=== PATIENT | female | born 1930 | race American Indian/Alaskan Native ===

== ENCOUNTER 2017-05-19 17:07 | Emergency (ER) | payer MEDICARE ==
[2017-05-19 17:22] VITALS: RESP 18; TEMP 98.4
--- NOTE | 2017-05-19 17:37 | ED PDOC ---
Arrival/HPI - General Chief Complaint: High Blood Pressure Time Seen by Provider: 05/19/17 17:18 - History of Present Illness Narrative History of Present Illness (Text): 86 y/o F p/w high blood pressure reading. Patient states that she was going to a routine follow up appointment at mental health clinic and was found to have high blood pressure and was instructed to come to the ED. She denies headache, vision change, nausea, vomiting, chest pain, dyspnea, back pain, abdominal pain , shortness of breath, numbness, weakness. Past Medical History - Cardiac Hx Cardiac Disorders: Yes Hx Hypertension: Yes - Pulmonary Hx Respiratory Disorders: No - Neurological Hx Neurological Disorder: No - HEENT Hx HEENT Disorder: No - Renal Hx Renal Disorder: No - Endocrine/Metabolic Hx Endocrine Disorders: Yes Hx Diabetes Mellitus Type 2: Yes - Hematological/Oncological Hx Blood Disorders: No - Integumentary Hx Dermatological Disorder: No - Musculoskeletal/Rheumatological Hx Musculoskeletal Disorders: No - Gastrointestinal Hx Gastrointestinal Disorders: No - Genitourinary/Gynecological Hx Genitourinary Disorders: No - Psychiatric Hx Psychophysiologic Disorder: Yes Hx Substance Use: No - Surgical History Hx Hysterectomy: Yes Family/Social History Family/Social History: No Known Family HX Smoking Status: Never Smoked Hx Alcohol Use: No Hx Substance Use: No Allergies/Home Meds Allergies/Adverse Reactions: Allergies No Known Allergies Allergy (Verified 05/19/17 17:30) Home Medications: Home Meds Medication Instructions Recorded Confirmed Unobtainable 05/19/17 05/19/17 Review of Systems - Physician Review All systems were reviewed & negative as marked: Yes - Review of Systems Constitutional: absent: Fevers Respiratory: absent: SOB Cardiovascular: absent: Chest Pain Physical Exam Vital Signs Temp Pulse Resp BP Pulse Ox 05/19/17 17:21 98.4 F 68 18 165/81 H 96 - Systems Exam Head: Present: Normocephalic Pupils: Present: PERRL Extroacular Muscles: Present: EOMI Mouth: Present: Moist Mucous Membranes Pharnyx: No: ERYTHEMA, EXUDATE Neck: Present: Normal Range of Motion. No: MIDLINE TENDERNESS Respiratory/Chest: Present: Clear to Auscultation. No: Rales Cardiovascular: Present: Regular Rate and Rhythm, Normal S1, S2 Abdomen: No: Tenderness, Peritoneal Signs, Rebound, Guarding Back: No: CVA Tenderness, Midline Tenderness Upper Extremity: Present: NORMAL PULSES Lower Extremity: No: Tenderness Neurological: Present: GCS=15, CN II-XII Intact, Speech Normal, Motor Func Grossly Intact, Normal Sensory Function, Gait Normal Skin: Present: Normal Color. No: Rashes Psychiatric: Present: Alert Medical Decision Making ED Course and Treatment: Patient's blood pressure during examination 130/80 without any intervention. Patient with no symptoms. No indication for further ER evaluation. Discharged home, f/u primary care, instructed to return to ED for any chest pain, dyspnea, vomiting, headache, vision change, numbness, weakness, or any other problem. Disposition/Present on Arrival - Present on Arrival Any Indicators Present on Arrival: No History of DVT/PE: No History of Uncontrolled Diabetes: No Urinary Catheter: No History of Decub. Ulcer: No History Surgical Site Infection Following: None - Disposition Have Diagnosis and Disposition been Completed?: Yes Diagnosis: Asymptomatic hypertension Disposition: HOME/ ROUTINE Disposition Time: 17:36 Patient Plan: Discharge Condition: STABLE Discharge Instructions (ExitCare): Chronic Hypertension (ED) Forms: [employer] ([place])
[2017-05-19 18:45] VITALS: BP 144/74; O2SAT 97
[2017-05-19 18:47] VITALS: PULSE 67
== END 2017-05-19 18:44 | disposition home or self-care (01) ==
LOC: ED 17:07
DX: I10 Essential (primary) hypertension (principal)

== ENCOUNTER 2018-01-05 10:01 | Inpatient (IN) | payer MEDICARE, OTHER ==
--- NOTE | 2018-01-05 11:04 | ED PDOC ---
Arrival/HPI - General Chief Complaint: GI Problem Time Seen by Provider: 01/05/18 10:20 Historian: Patient - History of Present Illness Narrative History of Present Illness (Text): 01/05/18 11:00 A 87 year old female presents to the emergency department complaining of rectal bleeding since 03:00 this morning. Patient reports 3-4 episodes of bright red bloody diarrhea. Patient notes having normal bowel movements prior to todays episode. Patient denies any fever, chills, nausea, vomiting, abdominal pain, rectal pain, chest pain, shortness of breath or any other complaints. Time/Duration: Other (03:00 this morning) Symptom Course: Unchanged Context: Home Past Medical History - Provider Review Nursing Documentation Reviewed: Yes - Cardiac Hx Cardiac Disorders: Yes Hx Hypertension: Yes - Pulmonary Hx Respiratory Disorders: No - Neurological Hx Neurological Disorder: No - HEENT Hx HEENT Disorder: No - Renal Hx Renal Disorder: No - Endocrine/Metabolic Hx Endocrine Disorders: Yes Hx Diabetes Mellitus Type 2: Yes - Hematological/Oncological Hx Blood Disorders: No - Integumentary Hx Dermatological Disorder: No - Musculoskeletal/Rheumatological Hx Musculoskeletal Disorders: No - Gastrointestinal Hx Gastrointestinal Disorders: No - Genitourinary/Gynecological Hx Genitourinary Disorders: No - Psychiatric Hx Psychophysiologic Disorder: No Hx Substance Use: No - Surgical History Hx Hysterectomy: Yes Family/Social History - Physician Review Nursing Documentation Reviewed: Yes Family/Social History: No Known Family HX Smoking Status: Never Smoked Hx Alcohol Use: No Hx Substance Use: No Allergies/Home Meds Allergies/Adverse Reactions: Allergies No Known Allergies Allergy (Verified 01/05/18 10:11) Home Medications: Home Meds Medication Instructions Recorded Confirmed Atorvastatin [Lipitor] 40 mg PO DAILY 01/05/18 01/05/18 Bisoprolol/HCTZ [Ziac 10-6.25 mg] 1 tab PO DAILY 01/05/18 01/05/18 Ergocalciferol (Vitamin D2) 1 tab PO Q7D 01/05/18 01/05/18 [Vitamin D2] Lisinopril [Zestril] 20 mg PO BID 01/05/18 01/05/18 Magnesium Oxide [Magnesium] 1 tab PO DAILY 01/05/18 01/05/18 amLODIPine [Norvasc] 10 mg PO DAILY 05/04/18 05/04/18 Review of Systems - Review of Systems Constitutional: absent: Fatigue, Fevers, Night Sweats Eyes: absent: Eye Pain Respiratory: absent: SOB, Cough Cardiovascular: absent: Chest Pain, Edema, MASCORRO Gastrointestinal: Diarrhea (bloody). absent: Abdominal Pain, Constipation, Nausea, Vomiting, Anorexia, Other (rectal pain) Genitourinary Female: absent: Hematuria Musculoskeletal: absent: Back Pain Skin: absent: Rash Neurological: absent: Headache, Dizziness, Focal Weakness Endocrine: absent: Polyuria Hemo/Lymphatic: Easy Bleeding Psychiatric: absent: Depression Physical Exam - Physical Exam Narrative Physical Exam (Text): Head: Atraumatic. Normocephalic. Eyes: PERRL. EOMI. Conjunctivae are not pale. ENT: Mucous membranes are moist and intact. Oropharynx is clear and symmetric. Neck: Supple. Full ROM. No JVD. No lymphadenopathy. Cardiovascular: Regular rate. Regular rhythm. Mild systolic murmur noted. Distal pulses intact. Pulmonary/Chest: No evidence of respiratory distress. Clear to auscultation bilaterally. No wheezing, rales or rhonchi. Abdominal: Soft and non-distended. There is no tenderness. No rebound, guarding, or rigidity. No organomegaly. Good bowel sounds. Rectal Exam: Performed by me, chaperoned by scribe. No external hemorrhoids noted. Dark blood clots noted in stool. No internal masses palpable. Back: No CVA tenderness. Extremities: No edema. No cyanosis. No clubbing. Full range of motion in all extremities. No calf tenderness. Skin: Skin is warm and dry. No petechiae. No purpura. Neurological: Alert, awake, and oriented. No focal weakness. Motor and sensory exam intact. Psychiatric: Good eye contact. Normal interaction, affect, and behavior. Vital Signs Reviewed: Yes Vital Signs Temp Pulse Resp BP Pulse Ox 01/05/18 17:34 98.5 F 65 18 142/61 01/05/18 17:20 98.1 F 63 18 152/75 H 100 01/05/18 17:11 98.1 F 65 20 140/75 01/05/18 14:12 62 18 138/53 L 98 01/05/18 13:52 68 18 113/71 97 01/05/18 11:27 98.6 F 74 18 111/69 96 01/05/18 10:15 99.0 F 78 17 109/67 95 Temperature: Afebrile Blood Pressure: Normal Pulse: Regular Respiratory Rate: Normal Appearance: Positive for: Well-Appearing, Non-Toxic, Comfortable Pain Distress: None Mental Status: Positive for: Alert and Oriented X 3 Medical Decision Making ED Course and Treatment: 01/05/18 10:59 Impression: A 87 [place] old female with rectal bleeding. Patient notes 3-4 episodes of bloody diarrhea. Plan is to obtain CBC and monitor. Differential Diagnosis included but are not limited to: Diverticulosis vs. Colitis vs. Hemorrhoids vs. GI bleed Plan: -- Chest xray -- EKG -- Labs -- Reassess and disposition Progress Notes: Patient on exam denies any pain or shortness of breath. She has been monitored, she is not tachycardic or hypotensive, although there is active bleeding with no external hemorrhoid noted. Patient is noted to be anemic, this hemoglobin was reviewed with PMD Dr. Anderson and reviewed past records reveal acute change of reported baseline. GIVEN ACTIVE BLEEDING AND DROP IN HEMOGLOBIN, patient ordered pRBCS transfusion , consent discussed with patient and patient signed consent, understands indications. I discussed case with Dr. Cleveland, bleeding scan requested and result reviewed with Dr. Cleveland. CT abdomen/pelvis requested, pending at this time, endorsed to admitting team and consultants. Patient will be admitted to ICU based on ACTIVE BLEEDING and drop in hemoglobin. Not hypotensive or tachycardic with serial exams. Report Date : 01/05/2018 13:54:59 Procedure: Chest xray Dictator : Jim Leal MD IMPRESSION: No active disease. 01/05/18 18:26 Reassessment Condition: Re-examined - Critical Care Critical Care Minutes: 30 minutes - Lab Interpretations Lab Results: 01/05/18 11:13 01/05/18 11:13 Lab Results 01/05/18 13:30: Blood Type Confirm O POSITIVE 01/05/18 12:21: Blood Type O POSITIVE, Antibody Screen Negative, Crossmatch See Detail, BBK History Checked No verified bt 01/05/18 11:13: Lactate Dehydrogenase 252 L, Total Creatine Kinase 92, Troponin I < 0.01 01/05/18 11:13: Sodium 144, Potassium 4.0, Chloride 105, Carbon Dioxide 29, Anion Gap 14, BUN 36 H, Creatinine 1.3 H, Est GFR ( Amer) 47, Est GFR ( Non-Af Amer) 39, Random Glucose 381 H* D, Calcium 9.6, Total Bilirubin 0.2, AST 27, ALT 21, Alkaline Phosphatase 69, Total Protein 5.7 L, Albumin 3.2, Globulin 2.6, Albumin/Globulin Ratio 1.2 01/05/18 11:13: PT 11.8, INR 1.03, APTT 24.9 L 01/05/18 11:13: WBC 6.9, RBC 3.32 L, Hgb 8.8 L, Hct 28.5 L, MCV 85.8, MCH 26.5, MCHC 30.9 L, RDW 16.3 H, Plt Count 211, MPV 10.8, Gran % 73.6 H, Lymph % (Auto) 20.3 L, [place] % (Auto) 4.9, Eos % (Auto) 0.9 L, Baso % (Auto) 0.3, Gran # 5.06, Lymph # (Auto) 1.4, [place] # (Auto) 0.3, Eos # (Auto) 0.1, Baso # (Auto) 0.02 I have reviewed the lab results: Yes - RAD Interpretation Radiology Orders: 01/05/18 11:22 GI BLEEDING SCAN W/ FLOW [NM] Stat 01/05/18 12:13 CHEST PORTABLE [RAD] Stat 01/05/18 15:04 ABD & PELVIS PO CONTRAST ONLY [CT] Stat - EKG Interpretation EKG Interpretation (Text): 01/05/18 18:29 EKG at 13:47 normal sinus rhythm rate of 66 with first degree av block, nonspecific t wave abnormality Interpreted by ED Physician: Yes Type: 12 lead EKG - Medication Orders Current Medication Orders: Amlodipine Besylate (Norvasc) 10 mg PO DAILY MOJGAN Atorvastatin Calcium (Lipitor) 40 mg PO DAILY MOJGAN Ergocalciferol (Drisdol 50,000 Intl Units Cap) 1 cap PO Q7D MOJGAN Sodium Chloride (Sodium Chloride 0.9%) 1,000 mls @ 100 mls/hr IV .Q10H MOJGAN Last Admin: 01/05/18 17:23 Dose: 100 mls/hr eMAR Start Stop Document 01/05/18 17:23 SS (Rec: 01/05/18 17:23 SS [id number]) Intravenous Solution Start Date 01/05/18 Start Time 17:23 Insulin Human Regular (Humulin R Low) 0 units SC ACHS MOJGAN PRN Reason: Protocol Lisinopril (Zestril) 20 mg PO BID MOGJAN Magnesium Oxide (Mag-Ox) 400 mg PO DAILY MOJGAN Non-Formulary Medication (Bisoprolol/Hctz [Ziac 10-6.25 Mg]) 1 tab PO DAILY MOJGAN Pantoprazole Sodium (Protonix Inj) 40 mg IVP DAILY MOJGAN Quetiapine Fumarate (Seroquel) 300 mg PO HS MOJGAN PRN Reason: Protocol Discontinued Medications Sodium Chloride (Sodium Chloride 0.9%) 500 mls @ 1,000 mls/hr IV .Q30M STA Stop: 01/05/18 12:25 Last Admin: 01/05/18 14:59 Dose: 1,000 mls/hr eMAR Start Stop Document 01/05/18 14:59 SS (Rec: 01/05/18 14:59 SS [id number]) Intravenous Solution Start Date 01/05/18 Start Time 14:59 End Date 01/05/18 End time 15:29 Total Infusion Time 30 Sodium Chloride (Sodium Chloride 0.9%) 500 mls @ 1,000 mls/hr IV .Q30M STA Stop: 01/05/18 12:40 Last Admin: 01/05/18 17:23 Dose: 1,000 mls/hr eMAR Start Stop Document 01/05/18 17:23 SS (Rec: 01/05/18 17:24 SS [id number]) Intravenous Solution Start Date 01/05/18 Start Time 12:11 End Date 01/05/18 End time 12:40 Total Infusion Time 29 Pantoprazole Sodium (Protonix Inj) 40 mg IVP ONCE STA Stop: 01/05/18 12:12 Last Admin: 01/05/18 14:58 Dose: 40 mg IVP Administration Document 01/05/18 14:58 SS (Rec: 01/05/18 14:59 SS [id number]) Charges for Administration # of IVP Administrations 1 - Scribe Statement The provider has reviewed the documentation as recorded by the Saimaiblakeshia Sen Provider Scribe Attestation: All medical record entries made by the Scribe were at my direction and personally dictated by me. I have reviewed the chart and agree that the record accurately reflects my personal performance of the history, physical exam, medical decision making, and the department course for this patient. I have also personally directed, reviewed, and agree with the discharge instructions and disposition. Disposition/Present on Arrival - Present on Arrival Any Indicators Present on Arrival: Yes History of DVT/PE: No History of Uncontrolled Diabetes: Yes Urinary Catheter: No History of Decub. Ulcer: No History Surgical Site Infection Following: None - Disposition Have Diagnosis and Disposition been Completed?: Yes Diagnosis: GI bleed, Anemia Disposition: HOSPITALIZED Disposition Time: 13:00 Patient Plan: Admission, ICU Patient Problems: Current Active Problems Problem Status Onset Anemia Acute GI bleed Acute Condition: CRITICAL
[2018-01-05 11:22] LABS: BASO # 0.02 K/mm3 (0.0-2.0); BASO % 0.3 % (0.0-3.0); EOS # 0.1 (0.0-0.7); EOS % 0.9 % (1.5-5.0); GRAN # 5.06 (1.4-6.5); GRAN % 73.6 % (50.0-68.0); HEMOGLOBIN 8.8 g/dL (12.0-16.0); LYMPH # 1.4 (1.2-3.4); LYMPH % 20.3 % (22.0-35.0); MEAN CELL VOLUME 85.8 fl (80.0-105.0); MEAN CORPUSCULAR HEMOGLOBIN 26.5 pg (25.0-35.0); MEAN CORPUSCULAR HGB CONC 30.9 g/dl (31.0-37.0); MEAN PLATELET VOLUME 10.8 fl (7.0-11.0); MONO # 0.3 (0.1-0.6); MONO % 4.9 % (1.0-6.0); RBC 3.32 10^6/uL (3.5-6.1); RED CELL DISTRIBUTION WIDTH 16.3 % (11.5-14.5); WHITE BLOOD COUNT 6.9 10^3/ul (4.5-11.0)
[2018-01-05 11:37] LABS: ALB/GLOB RATIO 1.2 (1.1-1.8); ALBUMIN 3.2 g/dL (3.0-4.8); CALCIUM 9.6 mg/dL (8.4-10.5)
[2018-01-05 11:38] LABS: INR 1.03 (0.93-1.08); PARTIAL THROMBOPLASTIN TIME 24.9 Seconds (25.1-36.5); PROTHROMBIN TIME 11.8 SECONDS (9.4-12.5)
[2018-01-05] MEDS ORDERED: Sodium Chloride 0.9% 500 ML IV STA ×2 (11:56→12:11)
[2018-01-05 13:37] LABS: TROPONIN I < 0.01 ng/mL
--- NOTE | 2018-01-05 13:56 | RAD ---
HISTORY: gi bleeding COMPARISON: 01/01/2018 FINDINGS: LUNGS: No active pulmonary disease. PLEURA: No significant pleural effusion identified, no pneumothorax apparent. CARDIOVASCULAR: Mild cardiomegaly OSSEOUS STRUCTURES: No significant abnormalities. VISUALIZED UPPER ABDOMEN: Normal. OTHER FINDINGS: None. IMPRESSION: No active disease.
--- NOTE | 2018-01-05 14:31 | NM ---
PROCEDURE: Nuclear medicine gastrointestinal bleeding scan. HISTORY: rectal bleeding COMPARISON: None available. TECHNIQUE: 4 cc of patient blood was withdrawn and mixed with 21 mCi of technetium ultra tagged. Images of the abdomen and pelvis were obtained in the anterior and posterior projection at 1 min intervals over a period of 45 min. FINDINGS: No abnormal extravasation of tracer was observed throughout the exam to indicate active bleeding within or outside the gastrointestinal tract. Physiologic activity was seen in the heart, liver, spleen and blood vessels. IMPRESSION: No evidence of active gastrointestinal bleeding.
[2018-01-05] MEDS ORDERED: Iohexol 240 (50 ml) ONE (15:21)
--- NOTE | 2018-01-05 15:30 | CP.PCM.CON ---
History of Present Illness - History of Present Illness History of Present Illness: General Surgery consult note for Dr. Mcnamara Consulted for: GI bleed Patient is an 87F who presented to ER after having bright red blood per rectum this AM. The first event happened 12 hours ago when she went to the bathroom at 3AM. Patient had a loose, normal color bowel movement with bright red blood on the toilet and on the toilet paper when she wiped. Patient had three more loose bowel movements this AM with more bright red blood. Patient reports chronic constipation for which she takes stool softeners at home and decreased appetite but denies any abdominal pain, nausea, vomiting, melena, dysuria, hematuria, fevers, chills, weight loss, or any other symptoms. Patient denies any family history of GI issues or cancer, last colonoscopy was many years ago but patient does not recollect any significant findings at that time. Patient denies taking blood thinners at home. PMH: IDDM, HTN, HLD PSH: hysterectomy (for fibroids) ALL: NKDA Social: tobacco smoker for 40+ years, quit 20 years ago, denies alcohol or drugs Review of Systems - Review of Systems All systems: reviewed and no additional remarkable complaints except (as per HPI ) Past Patient History - Past Medical History & Family History Past Medical History?: Yes Past Family History: Reviewed and not pertinent - Past Social History Smoking Status: Former Smoker Alcohol: None Drugs: Denies - CARDIAC Hx Cardiac Disorders: Yes Hx Hypercholesterolemia: Yes Hx Hypertension: Yes - PULMONARY Hx Respiratory Disorders: No - NEUROLOGICAL Hx Neurological Disorder: No - HEENT Hx HEENT Problems: No - RENAL Hx Chronic Kidney Disease: No - ENDOCRINE/METABOLIC Hx Endocrine Disorders: Yes Hx Diabetes Mellitus Type 2: Yes - HEMATOLOGICAL/ONCOLOGICAL Hx Blood Disorders: No - INTEGUMENTARY Hx Dermatological Problems: No - MUSCULOSKELETAL/RHEUMATOLOGICAL Hx Musculoskeletal Disorders: No - GASTROINTESTINAL Hx Gastrointestinal Disorders: Yes Hx Constipation: Yes - GENITOURINARY/GYNECOLOGICAL Hx Genitourinary Disorders: No - PSYCHIATRIC Hx Psychophysiologic Disorder: No Hx Substance Use: No - SURGICAL HISTORY Hx Surgeries: Yes Hx Hysterectomy: Yes Meds Allergies/Adverse Reactions: Allergies Allergy/AdvReac Type Severity Reaction Status Date / Time No Known Allergies Allergy Verified 01/05/18 10:11 Physical Exam - Constitutional Appears: Well, Non-toxic, No Acute Distress - Head Exam Head Exam: ATRAUMATIC, NORMOCEPHALIC - Eye Exam Eye Exam: Normal appearance. absent: Conjunctival injection, Scleral icterus - ENT Exam ENT Exam: Mucous Membranes Moist, Normal Oropharynx - Respiratory Exam Respiratory Exam: NORMAL BREATHING PATTERN. absent: Accessory Muscle Use, Respiratory Distress - Cardiovascular Exam Cardiovascular Exam: RRR - GI/Abdominal Exam GI & Abdominal Exam: Distended (mild), Soft. absent: Mass, Rebound, Tenderness - Rectal Exam Rectal Exam: absent: Black Stool, Hemorrhoids, Fecal Impaction Additional comments: minimal liquid stool in rectal vault with tiny seeds and streaks of gross bright red blood. No palpable masses. No tenderness - Extremities Exam Extremities exam: Positive for: pedal pulses present. Negative for: calf tenderness, pedal edema - Neurological Exam Neurological exam: Alert, Oriented x3 - Psychiatric Exam Psychiatric exam: Normal Affect, Normal Mood - Skin Skin Exam: Dry, Intact, Normal Color, Warm Results - Vital Signs Recent Vital Signs: Last Vital Signs Temp 98.6 F 01/05/18 11:27 Pulse 62 01/05/18 14:12 Resp 18 01/05/18 14:12 BP 138/53 L 01/05/18 14:12 Pulse Ox 98 01/05/18 14:12 - Labs Result Diagrams: 01/05/18 11:13 01/05/18 11:13 Labs: Laboratory Results - last 24 hr 01/05/18 01/05/18 01/05/18 11:13 11:13 11:13 WBC 6.9 RBC 3.32 L Hgb 8.8 L Hct 28.5 L MCV 85.8 MCH 26.5 MCHC 30.9 L RDW 16.3 H Plt Count 211 MPV 10.8 Gran % 73.6 H Lymph % (Auto) 20.3 L [place] % (Auto) 4.9 Eos % (Auto) 0.9 L Baso % (Auto) 0.3 Gran # 5.06 Lymph # (Auto) 1.4 [place] # (Auto) 0.3 Eos # (Auto) 0.1 Baso # (Auto) 0.02 PT 11.8 INR 1.03 APTT 24.9 L Sodium 144 Potassium 4.0 Chloride 105 Carbon Dioxide 29 Anion Gap 14 BUN 36 H Creatinine 1.3 H Est GFR ( Amer) 47 Est GFR (Non-Af Amer) 39 Random Glucose 381 H* D Calcium 9.6 Total Bilirubin 0.2 AST 27 ALT 21 Alkaline Phosphatase 69 Lactate Dehydrogenase Total Creatine Kinase Troponin I Total Protein 5.7 L Albumin 3.2 Globulin 2.6 Albumin/Globulin Ratio 1.2 Blood Type Blood Type Confirm Antibody Screen Crossmatch BBK History Checked 01/05/18 01/05/18 01/05/18 11:13 12:21 13:30 WBC RBC Hgb Hct MCV MCH MCHC RDW Plt Count MPV Gran % Lymph % (Auto) [place] % (Auto) Eos % (Auto) Baso % (Auto) Gran # Lymph # (Auto) [place] # (Auto) Eos # (Auto) Baso # (Auto) PT INR APTT Sodium Potassium Chloride Carbon Dioxide Anion Gap BUN Creatinine Est GFR ( Amer) Est GFR (Non-Af Amer) Random Glucose Calcium Total Bilirubin AST ALT Alkaline Phosphatase Lactate Dehydrogenase 252 L Total Creatine Kinase 92 Troponin I < 0.01 Total Protein Albumin Globulin Albumin/Globulin Ratio Blood Type O POSITIVE Blood Type Confirm O POSITIVE Antibody Screen Negative Crossmatch See Detail BBK History Checked No verified bt Assessment & Plan - Assessment and Plan (Free Text) Assessment: 87F with acute onset hematochezia hgb 8.8 down from prior 11.4 in 03/2017, which appears to be baseline Nuclear bleeding scan negative HR and BP wnl Plan: No surgical intervention indicated at this time--patient is hemodynamically stable and has no obvious site of bleeding Recommend GI consult for a colonoscopy Repeat H/H at 1600 to assess for further blood loss No blood transfusion recommended from a surgical standpoint unless patient becomes hemodynamically unstable or has further significant drop in hemoglobin NPO IVF Monitor bowel function and urinary output Discussed and examined with Dr. Anders Doe, PGY2
--- NOTE | 2018-01-05 15:55 | CP.PCM.CON ---
<MargieActhleen - Last Filed: 01/05/18 15:33> History of Present Illness - History of Present Illness History of Present Illness: Cathleen Hanson, PGY1, ICU Consult Note for Dr Camargo: Reason for Consult: anemia, rectal bleeding 87 year old female with PMH DM, HLD, presents for bright red rectal bleeding that started this AM. Pt states that she was in her usual state of health until this morning. She started having loose bowel movement mixed with bright red blood, total of 3 episodes. She also reports "blood while wiping with tissue with bowel movement. Pt denies history of hemorrhoids, recent antibiotic use, recent travel. Her last colonoscopy was few years ago, which she reports was "normal." Reports history of stomach ulcers. Denies prior bleeding episodes, anemia. Denies cp, sob, weakness, fatigue, fever, chills, nausea, vomiting, abdominal pain, rectal pain, melena, hematemesis, weight loss, change in bowel habits. In Ed, pt afebrile, hemodynamically stable. CBC shows hgb 8.8 (baseline 11.4). Bleeding scan negative for active bleeding. Given 2L NS bolus, protonix 40 mg IV in ED. 12 point ROS obtained and negative, except as per HPI. PMH: DM, HLD PSH: hysterectomy All: NKA FH: denies SH: quit smoking 20 years ago Review of Systems - Review of Systems All systems: reviewed and no additional remarkable complaints except Review of Systems: as per HPI Past Patient History - Past Social History Smoking Status: Never Smoked - CARDIAC Hx Cardiac Disorders: Yes Hx Hypertension: Yes - PULMONARY Hx Respiratory Disorders: No - NEUROLOGICAL Hx Neurological Disorder: No - HEENT Hx HEENT Problems: No - RENAL Hx Chronic Kidney Disease: No - ENDOCRINE/METABOLIC Hx Endocrine Disorders: Yes Hx Diabetes Mellitus Type 2: Yes - HEMATOLOGICAL/ONCOLOGICAL Hx Blood Disorders: No - INTEGUMENTARY Hx Dermatological Problems: No - MUSCULOSKELETAL/RHEUMATOLOGICAL Hx Musculoskeletal Disorders: No - GASTROINTESTINAL Hx Gastrointestinal Disorders: No - GENITOURINARY/GYNECOLOGICAL Hx Genitourinary Disorders: No - PSYCHIATRIC Hx Psychophysiologic Disorder: No Hx Substance Use: No - SURGICAL HISTORY Hx Hysterectomy: Yes Meds Allergies/Adverse Reactions: Allergies Allergy/AdvReac Type Severity Reaction Status Date / Time No Known Allergies Allergy Verified 01/05/18 10:11 Physical Exam - Constitutional Appears: Non-toxic, No Acute Distress - Head Exam Head Exam: ATRAUMATIC, NORMOCEPHALIC - Eye Exam Eye Exam: EOMI, Normal appearance, PERRL. absent: Conjunctival injection, Nystagmus, Scleral icterus Pupil Exam: NORMAL ACCOMODATION, PERRL. absent: Fixed, Irregular, Miosis, Mydriatic, Unequal - ENT Exam ENT Exam: Mucous Membranes Dry - Neck Exam Neck exam: Positive for: Normal Inspection - Respiratory Exam Respiratory Exam: Clear to Auscultation Bilateral, NORMAL BREATHING PATTERN. absent: Accessory Muscle Use, Chest Wall Tenderness, Rales, Rhonchi, Wheezes, Respiratory Distress, Stridor - Cardiovascular Exam Cardiovascular Exam: RRR, +S1, +S2. absent: Systolic Murmur - GI/Abdominal Exam GI & Abdominal Exam: Normal Bowel Sounds, Soft. absent: Distended, Firm, Guarding, Mass, Organomegaly, Rebound, Rigid, Tenderness - Extremities Exam Extremities exam: Positive for: normal inspection. Negative for: calf tenderness, pedal edema - Back Exam Back exam: NORMAL INSPECTION. absent: CVA tenderness (L), CVA tenderness (R) - Neurological Exam Neurological exam: Alert, Oriented x3 - Psychiatric Exam Psychiatric exam: Normal Affect, Normal Mood - Skin Skin Exam: Dry, Normal Color, Warm Results - Vital Signs Recent Vital Signs: Last Vital Signs Temp 98.6 F 01/05/18 11:27 Pulse 62 01/05/18 14:12 Resp 18 01/05/18 14:12 BP 138/53 L 01/05/18 14:12 Pulse Ox 98 01/05/18 14:12 - Labs Result Diagrams: 01/05/18 11:13 01/05/18 11:13 Labs: Laboratory Results - last 24 hr 01/05/18 01/05/18 01/05/18 11:13 11:13 11:13 WBC 6.9 RBC 3.32 L Hgb 8.8 L Hct 28.5 L MCV 85.8 MCH 26.5 MCHC 30.9 L RDW 16.3 H Plt Count 211 MPV 10.8 Gran % 73.6 H Lymph % (Auto) 20.3 L [place] % (Auto) 4.9 Eos % (Auto) 0.9 L Baso % (Auto) 0.3 Gran # 5.06 Lymph # (Auto) 1.4 [place] # (Auto) 0.3 Eos # (Auto) 0.1 Baso # (Auto) 0.02 PT 11.8 INR 1.03 APTT 24.9 L Sodium 144 Potassium 4.0 Chloride 105 Carbon Dioxide 29 Anion Gap 14 BUN 36 H Creatinine 1.3 H Est GFR ( Amer) 47 Est GFR (Non-Af Amer) 39 Random Glucose 381 H* D Calcium 9.6 Total Bilirubin 0.2 AST 27 ALT 21 Alkaline Phosphatase 69 Lactate Dehydrogenase Total Creatine Kinase Troponin I Total Protein 5.7 L Albumin 3.2 Globulin 2.6 Albumin/Globulin Ratio 1.2 Blood Type Blood Type Confirm Antibody Screen Crossmatch BBK History Checked 01/05/18 01/05/18 01/05/18 11:13 12:21 13:30 WBC RBC Hgb Hct MCV MCH MCHC RDW Plt Count MPV Gran % Lymph % (Auto) [place] % (Auto) Eos % (Auto) Baso % (Auto) Gran # Lymph # (Auto) [place] # (Auto) Eos # (Auto) Baso # (Auto) PT INR APTT Sodium Potassium Chloride Carbon Dioxide Anion Gap BUN Creatinine Est GFR ( Amer) Est GFR (Non-Af Amer) Random Glucose Calcium Total Bilirubin AST ALT Alkaline Phosphatase Lactate Dehydrogenase 252 L Total Creatine Kinase 92 Troponin I < 0.01 Total Protein Albumin Globulin Albumin/Globulin Ratio Blood Type O POSITIVE Blood Type Confirm O POSITIVE Antibody Screen Negative Crossmatch See Detail BBK History Checked No verified bt Assessment & Plan - Assessment and Plan (Free Text) Assessment: 87 year old female, with HTN, HLD, presents for bright red bleeding per rectum, found to be anemic. Pt afebrile, hemodynamically stable, BP 138/53, HR 62, breathing well on RA, in NAD, comfortable. Hgb 8.8 (baseline 11.4). GI bleeding scan negative for active GI bleed: Recommend: - IVF, 2 large bore IVs - NPO - GI consult. - O2 prn - coags normal - iron studies - NPO - Maintain euglycemic. ISS. - transfuse prn - DVT ppx, SCDs - Does not need ICU intervention. Can monitor on Telemetry. Case seen and discussed with Dr Camargo. - Date & Time Date: 01/05/18 Time: 15:56 <Venkata Camargo - Last Filed: 01/05/18 16:12> Results - Vital Signs Recent Vital Signs: Last Vital Signs Temp 98.6 F 01/05/18 11:27 Pulse 62 01/05/18 14:12 Resp 18 01/05/18 14:12 BP 138/53 L 01/05/18 14:12 Pulse Ox 98 01/05/18 14:12 - Labs Result Diagrams: 01/05/18 11:13 01/05/18 11:13 Assessment & Plan - Assessment and Plan (Free Text) Assessment: Patient seen and examined with resident, agree with note with following additions/exceptions: Patient is 87yo female with PMhx of HTN, HLD, presents for bright red blood per rectum, found to be anemic, HH 8.8, baseline 11.4. Pt currently afebrile, HD stable, comfortable in NAD. Reports BRBPR, and blood while wiping. Denies N/V/D , abd pain. Cont with IVF hydration, CBC Q6hr, follow up bleeding scan, and GI, obtain CT Abd/Pelvis. NPO GI ppx, DVT ppx. Monitor in MICU for closer observation.
[2018-01-05] MEDS: Sodium Chloride 0.9% 1,000 ML IV SCH (17:23)
[2018-01-05] MEDS ORDERED: Ergocalciferol 50,000 Intl Units Cap PO SCH (17:30)
--- NOTE | 2018-01-05 17:30 | CP.PCM.HP ---
History of Present Illness - History of Present Illness History of Present Illness: H&P for Dr. Anderson's service - Kath Castillo PGY2 HPI: Patient is a 87 year old female with history of DM, HLD, that presents to [facility] with c/o hematochezia that started in the morning. Patient reported that prior to this episode she had been in her usual state of health and had no prior similar issues. She started having loose bowel movement mixed with bright red blood, total of 3 episodes. She also reported noticing bright red blood on toilet paper. Of note, she reported a history of stomach ulcers. She denies chest pain, palpitations, SOB, abdominal pain, nausea, vomiting, fever, chills, cough, focal weakness, numbness, tingling. Reported she had a colonoscopy several years prior which was as far as she knows normal. 12point ROS as per HPI above otherwise negative PMHx: as stated above PSHx: hysterectomy Allergies: NKDA Medications: Reviewed and as per MAR FH: denies SH: quit smoking 20 years ago PMD: Dr. Anderson Present on Admission - Present on Admission Any Indicators Present on Admission: No Past Patient History - Past Medical History & Family History Past Medical History?: Yes Past Family History: Reviewed and not pertinent - Past Social History Smoking Status: Former Smoker Alcohol: None Drugs: Denies - CARDIAC Hx Cardiac Disorders: Yes Hx Hypercholesterolemia: Yes Hx Hypertension: Yes - PULMONARY Hx Respiratory Disorders: No - NEUROLOGICAL Hx Neurological Disorder: No - HEENT Hx HEENT Problems: No - RENAL Hx Chronic Kidney Disease: No - ENDOCRINE/METABOLIC Hx Endocrine Disorders: Yes Hx Diabetes Mellitus Type 2: Yes - HEMATOLOGICAL/ONCOLOGICAL Hx Blood Disorders: No - INTEGUMENTARY Hx Dermatological Problems: No - MUSCULOSKELETAL/RHEUMATOLOGICAL Hx Musculoskeletal Disorders: No - GASTROINTESTINAL Hx Gastrointestinal Disorders: Yes Hx Constipation: Yes - GENITOURINARY/GYNECOLOGICAL Hx Genitourinary Disorders: No - PSYCHIATRIC Hx Psychophysiologic Disorder: No Hx Substance Use: No - SURGICAL HISTORY Hx Surgeries: Yes Hx Hysterectomy: Yes Meds Allergies/Adverse Reactions: Allergies Allergy/AdvReac Type Severity Reaction Status Date / Time No Known Allergies Allergy Verified 01/05/18 10:11 Physical Exam - Constitutional Appears: No Acute Distress - Head Exam Head Exam: ATRAUMATIC, NORMAL INSPECTION, NORMOCEPHALIC - Eye Exam Eye Exam: EOMI, PERRL - ENT Exam ENT Exam: Mucous Membranes Moist - Respiratory Exam Respiratory Exam: Clear to Auscultation Bilateral. absent: Rales, Rhonchi, Wheezes - Cardiovascular Exam Cardiovascular Exam: RRR, +S1, +S2. absent: Gallop, JVD, Rubs - GI/Abdominal Exam GI & Abdominal Exam: Soft. absent: Distended, Firm, Guarding, Rebound, Tenderness - Extremities Exam Extremities exam: Positive for: normal inspection Additional comments: trace edema - Neurological Exam Neurological exam: Alert, CN II-XII Intact, Oriented x3 - Psychiatric Exam Psychiatric exam: Normal Affect, Normal Mood - Skin Skin Exam: Dry, Intact, Normal Color, Warm Results - Vital Signs Recent Vital Signs: Last Vital Signs Temp 98.1 F 01/05/18 17:20 Pulse 63 01/05/18 17:20 Resp 18 01/05/18 17:20 BP 152/75 H 01/05/18 17:20 Pulse Ox 100 01/05/18 17:20 - Labs Result Diagrams: 01/05/18 11:13 01/05/18 11:13 Assessment & Plan - Assessment and Plan (Free Text) Plan: 87yo female with history of HTN, HLD, DM type 2 presents c/o hematochezia that started earlier this morning 1. Hematochezia secondary to GI bleed -2 large bore IV's -IVF hydration as ordered -Vitals presently within normal limits -Hgb 8.8 from baseline of ~11.4 -Bleeding scan negative for active bleeding -CT abd/pelvis with PO contrast pending -Transfusion 2u PRBC as ordered -NPO -Echocardiogram pending -GI consulted - Dr. Cleveland -Surgery consulted -ICU consulted -Protonix 40mg po daily 2. HTN -Hemodynamically stable at this time -Continue home medications including norvasc, hctz, bisoprolol, lisinopril 3. Hyperlipidemia -Continue home atorvastatin 4. DM type 2 -NPO -Fingersticks q4h -Sliding scale once patient cleared to eat by GI 5. GI/DVT Prophylaxis -Protonix/SCD's Patient seen and case discussed with attending, Dr. Anderson
--- NOTE | 2018-01-05 18:41 | CT ---
PROCEDURE: CT Abdomen and Pelvis with contrast HISTORY: gi bleed, request by Dr. Silvino Cleveland COMPARISON: None. TECHNIQUE: Helical CT of the abdomen and pelvis was performed following oral contrast administration. Intravenous contrast was not administered as per referring physician request. Contrast dose: None Radiation dose: Total exam DLP = 927.30 mGy-cm. This CT exam was performed using one or more of the following dose reduction techniques: Automated exposure control, adjustment of the mA and/or kV according to patient size, and/or use of iterative reconstruction technique. FINDINGS: LOWER THORAX: Volume loss of the right lower lobe is appreciated with limited fibrosis. Mediastinum is shifted toward the right there is mild elevation of the left hemidiaphragm from an indeterminate etiology. Cardiomegaly is noted. LIVER: Unremarkable. No gross lesion or ductal dilatation. GALLBLADDER AND BILE DUCTS: Gallbladder appears mildly distended with sludge layering in the dependent portion. Underlying cholelithiasis is not excluded. A pericholecystic fluid collection or reaction evident grossly. PANCREAS: Unremarkable. No gross lesion or ductal dilatation. SPLEEN: Unremarkable. ADRENALS: Unremarkable. No mass. KIDNEYS AND URETERS: Unremarkable. No hydronephrosis. No solid mass. VASCULATURE: Unremarkable. No aortic aneurysm. BOWEL: Stomach is collapsed and not evaluated well. Large small bowel is not appear obstructed. Oral contrast loops appear grossly unremarkable. Sigmoid diverticulosis is evident without definite diverticulitis. No obvious gross mass is seen that may be the site of gastrointestinal hemorrhage and further clinical correlation is advised. Consider possible gastrointestinal nuclear bleeding scan. APPENDIX: Infrarenal fusiform abdominal aortic aneurysm measures 4.0 x 4.8 x 5.0 cm (transverse by anteroposterior by superoinferior dimensions). No overt CT sign of rupture. PERITONEUM: Unremarkable. No free fluid. No free air. LYMPH NODES: Unremarkable. No enlarged lymph nodes. BLADDER: Unremarkable. REPRODUCTIVE: Unremarkable. BONES: Limited grade 1 spondylolisthesis L4-5 with L4 slightly and L5 on the basis of advanced facet joint degenerative arthropathy. OTHER FINDINGS: None. IMPRESSION: 1. Infrarenal abdominal aortic aneurysm 4.0 x 4.8 x 5.[address] sign of rupture. 2. Sigmoid diverticulosis without diverticulitis. 3. Sludge identified in the dependent gallbladder.
--- NOTE | 2018-01-05 18:47 | CARD ---
APPROVED REPORT EKG Measurement Heart [id number] <Conclusion> Sinus rhythm with 1st degree AV block Nonspecific T wave abnormality Abnormal ECG
[2018-01-05] MEDS ORDERED: Insulin Reg-LOW-Coverage SC SCH (22:00)
[2018-01-05 23:34] LABS: HEMOGLOBIN 10.5 g/dL (12.0-16.0); MEAN CELL VOLUME 85.3 fl (80.0-105.0); MEAN CORPUSCULAR HGB CONC 31.6 g/dl (31.0-37.0); MEAN PLATELET VOLUME 10.7 fl (7.0-11.0); RBC 3.89 10^6/uL (3.5-6.1); WHITE BLOOD COUNT 10.5 10^3/ul (4.5-11.0)
[2018-01-05 23:35] LABS: IRON 91 ug/dL (45-180)
[2018-01-05 23:46] LABS: % IRON SATURATION 35 % (20-55); TOTAL IRON BINDING CAPACITY 261 ug/dL (265-497)
--- NOTE | 2018-01-06 00:41 | HP ---
DATE OF EXAM: 01/05/2018 HISTORY OF PRESENT ILLNESS: The patient is an 87-year-old -[place] female presented to the [facility] emergency room with bright red blood per rectum and having loose bloody bowel movement. The patient denies any abdominal pain, denies nausea, denies vomiting, but reports only as above. REVIEW OF SYSTEMS: A 13-system review was done, pertinent positive negative dictated above. CODE STATUS: Full code. LIVING WILL ADVANCE DIRECTIVE: None. SOCIAL HISTORY: Negative for smoking. Negative for alcohol. Negative for drug use. Negative for communicable transmissible disease. FAMILY HISTORY: Positive for diabetes, hypertension, coronary artery disease. OCCUPATIONAL HISTORY: Disabled, elderly female. ALLERGIES: NONE PER THE [employer]. 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 MEDICATIONS: The patient's home medications are not completely listed in the [employer]. I have advised the medical director occupational health to contact the pharmacy and update the patient's home medications. The patient is supposed to be on beta-blockers, MICHELL inhibitors, statins, insulin, Cymbalta and couple of other antihypertensive medications which are not listed. PHYSICAL EXAMINATION: GENERAL: The patient is seen in stretcher #11 in the emergency room. The patient is seen lying in the bed in the emergency room, bed 11. VITAL SIGNS: T-max afebrile; heart rate 84, 90, 94; respirations 18 to 20; blood pressure is 140/90, 138/84; O2 sat mid to high 90%. HEENT: Head examination, normocephalic, atraumatic. Pinkish pale conjunctivae. Anicteric sclerae. No oropharyngeal lesion. NECK: No rigidity. CHEST: Kyphosis. LUNGS: Shows no rales, crackles or wheezing. CARDIOVASCULAR: S1, S2, regular rhythm. Questionable soft systolic murmur left sternal border, right second intercostal space, left second intercostal space. ABDOMEN: Soft, protuberant. Positive bowel sound, positive healed surgical scar of hysterectomy. GENITALIA: Female. RECTAL: Guaiac positive with maroonish stool. EXTREMITIES: Shows trace swelling of the lower extremity. No calf tenderness, no Homans' sign, no pitting edema. MUSCULOSKELETAL: Shows an elevated body mass index for stated age, height and weight. NEUROLOGIC: The patient is alert, awake, oriented x3. Cranial nerves II-XII intact. Gait examination is not tested. VASCULAR: Palpable pulses. DIAGNOSTICS: Pending. The patient's lab work was just drawn. The results are pending. The patient's EKG is pending. X-rays are pending, which will be reviewed later. IMPRESSION: 1. Bright red blood per rectum, etiology unclear. 2. Questionable lower , most likely possible lower gastrointestinal bleeding with bright red blood per rectum. 3. History of Insulin-requiring diabetes mellitus. 4. History of mild normocytic iron-deficiency anemia. 5. History of cervical and lumbar spine degenerative disc disease. 6. History of the cervical and lumbar radiculopathy. 7. History of diabetic neuropathy. 8. History of hypertension, hyperlipidemia, history of vitamin D deficiency. 9. History of morbid obesity. 10. History of left shoulder rotator cuff tear. 11. History of lumbar spinal stenosis. PLAN: At this time, the patient's diagnostic data when available will be reviewed. The patient will most likely will be admitted to a monitored floor depending upon the patient's subjective and objective and hemodynamic status. The patient has been explained about the need for hospitalization. Need for further diagnostic therapeutic intervention was explained to the patient at length and all questions concerned answered. In addition, the patient was also explained the need for Gastroenterology evaluation and further GI testing and intervention was explained to the patient, which she acknowledged understand. All questions concerned answered. The patient's diagnostic data is still pending, when available will be reviewed and further therapeutic diagnostic intervention will be modified depending upon the patient's GI evaluation and emergency room diagnostic data. Dictated and electronically signed, not read. Jack Anderson MD
--- NOTE | 2018-01-06 02:34 | CON ---
DATE: 01/05/2018 CARDIOLOGY CONSULTATION REASON FOR CONSULTATION: Rectal bleeding and weakness. HISTORY OF PRESENT ILLNESS: The patient has a history of leaky valve in the past, but required no intervention and was seen by , a apprentice cosmetologist, who was at [facility] at that time. The patient presented because of dark stool after she took 2 pills of Aleve for her lower extremity pain, which she attributed to diabetic neuropathy. The patient denies any hematemesis. The patient denies any syncope. SOCIAL HISTORY: The patient is nonsmoker. She lives by herself. Her grandchildren are living near by. MEDICATIONS: The patient's home medications include magnesium oxide for 100 mg daily, Ziac 1 tablet daily, Lipitor 10 mg once a day, Norvasc 10 mg once a day, Zestril 20 mg twice a day. REVIEW OF SYSTEMS: No hematemesis. No fever or chills. No productive cough and no retrosternal chest pain. PAST MEDICAL HISTORY: The patient recalls in 1967 when she had her hysterectomy, she became anemic and she required blood transfusion. PHYSICAL EXAMINATION: GENERAL: The patient is an elderly female, who does not appear to be in acute distress. VITAL SIGNS: Blood pressure 138/53, heart rate 62, temperature 98.6, and respirations 18. HEENT: Pale conjunctivae. CHEST: Clear. HEART: S1 and S2 regular. ABDOMEN: Soft. EXTREMITIES: No edema. LABORATORY DATA: PT/INR are within normal limits. PTT is 24.9. SMA-7; sodium 144, potassium 4, chloride 105, CO2 29, glucose 381, BUN 36, and creatinine 1.3. One set of troponin is negative. Hemoglobin and hematocrit 8.8 and 28.5. White count and platelet count are within normal limits. EKG revealed sinus rhythm at rate of 66, first-degree AV block. Bleeding scan, no evidence of active GI bleeding. Echocardiography study performed in June of last year revealed mild aortic insufficiency and mild pulmonary insufficiency. ASSESSMENT: 1. Rectal bleeding. 2. Hypertension. 3. Uncontrolled diabetes mellitus. 4. Mild aortic and mild pulmonic insufficiency. RECOMMENDATIONS: Admitted to patient's telemetry. Resume amlodipine, lisinopril, and bisoprolol/hydrochlorothiazide. If the patient is cleared from the GI point of view unless the patient will be kept n.p.o. for endoscopic workup. Varun Neumann MD
[2018-01-06] MEDS: Sodium Chloride 0.9% 1,000 ML IV SCH (05:00)
[2018-01-06 06:29] LABS: BASO # 0.02 K/mm3 (0.0-2.0); BASO % 0.2 % (0.0-3.0); EOS # 0.3 (0.0-0.7); EOS % 3.2 % (1.5-5.0); GRAN # 5.19 (1.4-6.5); GRAN % 58.8 % (50.0-68.0); LYMPH # 2.8 (1.2-3.4); LYMPH % 31.3 % (22.0-35.0); MEAN CELL VOLUME 85.5 fl (80.0-105.0); MEAN CORPUSCULAR HGB CONC 31.6 g/dl (31.0-37.0); MEAN PLATELET VOLUME 10.5 fl (7.0-11.0); MONO # 0.6 (0.1-0.6); MONO % 6.5 % (1.0-6.0); RBC 4.07 10^6/uL (3.5-6.1); RED CELL DISTRIBUTION WIDTH 16.2 % (11.5-14.5); WHITE BLOOD COUNT 8.8 10^3/ul (4.5-11.0)
[2018-01-06 06:41] LABS: ALB/GLOB RATIO 1.3 (1.1-1.8); ALBUMIN 3.3 g/dL (3.0-4.8); BILIRUBIN,DIRECT 0.4 mg/dL (0.0-0.4); CALCIUM 9.6 mg/dL (8.4-10.5); URIC ACID 6.5 mg/dL (2.5-6.2)
[2018-01-06 07:19] LABS: INR 0.99 (0.93-1.08); PROTHROMBIN TIME 11.4 SECONDS (9.4-12.5)
[2018-01-06] MEDS: Insulin Lispro (HUMAlog) HIGH Coverage SC SCH ×3 (07:30→15:53)
[2018-01-06] MEDS: Magnesium Oxide 400 mg Tab UD PO SCH (09:06)
--- NOTE | 2018-01-06 09:44 | PN ---
DATE: 01/06/2018 SUBJECTIVE: The patient is seen in ICU, bed 1. The patient is lying in the bed. The patient is in the process of getting ultrasound done. Overnight nurse's notes were reviewed. The patient denies any more rectal bleeding. The patient stayed well without any adverse event. The patient completed 2 units of packed red blood cell transfusion. REVIEW OF SYSTEMS: Thirteen system review was done, all system examination was negative today. PHYSICAL EXAMINATION: VITAL SIGNS: T-max 98.3. Telemetry shows sinus rhythm, heart rate 86, 72, 66, 62, 64; blood pressure 146/49, 134/66, 151/59, 145/64, 145/82; respirations 19; O2 sat 97%, 96%, 100%. Intake/output not documented. HEENT: Head examination normocephalic, atraumatic. HEENT examination shows pinkish pale conjunctivae. Anicteric sclerae. No oropharyngeal lesion. No neck rigidity. CHEST: Kyphosis. LUNGS: Shows occasional rhonchi, upper lung gottlieb. No rales, crackles or wheezing. CARDIOVASCULAR: S1, S2, regular rhythm. Questionable soft systolic murmur, left sternal border noted. ABDOMEN: Positive bowel sound. Protuberant abdomen. No pulsations noted. No guarding. No rigidity. No rebound tenderness. No hepatosplenomegaly noted. GENITALIA: Female. RECTAL: Deferred. EXTREMITY: Shows no pitting edema, no calf numbness, no Homans' sign. Trace swelling of the legs noted and ankles noted. MUSCULOSKELETAL: Examination shows a body mass index of 38. NEUROLOGIC: The patient is alert, awake and oriented x3. Cranial nerves II through XII limited. Gait examination not tested. VASCULAR: Palpable pulses. DIAGNOSTICS: On January 06, WBC 8.8, hemoglobin and hematocrit 11 and 34.8, platelet 170. PT/PTT 11.4 and 24. Sodium 148, potassium 3.8, chloride 109, CO2 of 29, anion gap 13, BUN 26, creatinine 1.1, GFR 57. Glucose 168, 147, 166. Uric acid 6.5, calcium 9.6, phosphorus 2.6, magnesium 2.3, iron 91, TIBC 261, iron saturation 35, AST 49, cholesterol is 119, triglyceride 102, LDL 53, HDL 39. The patient received 2 units of PRBC transfusion. Ultrasound of the abdomen was noted. CAT scan of the abdomen and pelvis was noted. GI bleeding scan was noted and reviewed and explained to the patient. IMPRESSION AND PLAN: 1. Bright red blood per rectum and lower gastrointestinal bleeding. 2. Acute blood loss anemia. 3. Hematochezia with lower gastrointestinal bleeding and acute blood loss anemia with decreasing hemoglobin and hematocrit. 4. Hypertension. 5. Acute kidney injury. 6. Acute onset of hematochezia with acute blood loss anemia. 7. Hypertension. 8. Transient granulocytosis. 9. Status post packed red blood cell transfusion x2. 10. Acute kidney injury with chronic kidney disease stage 3 and prerenal kidney injury. 11. Hyperglycemia. 12. Hyperuricemia. 13. Transaminitis. 14. History of hyperlipidemia. 15. Status post 2 units pack red blood cell transfusion. 16. Mild cardiomegaly on chest x-ray. 17. Questionable right lower lobe fibrosis with right lower lobe volume loss. 18. Elevated left hemidiaphragm. 19. Cardiomegaly 20. Distended gallbladder with gallbladder sludge in the dependent portion. Questionable cholelithiasis. 21. Sigmoid diverticulosis. 22. Infrarenal fusiform abdominal aortic aneurysm 4 cm x 4.8 cm x 5 cm. 23. Lumbar spine spondylolisthesis and lumbar spine facet joint arthropathy. 24. History of insulin-requiring diabetes mellitus, history of hypertension, history of hyperlipidemia, history of hypovitaminosis D, history of diabetic neuropathy, history of lumbar cervical spinal stenosis, history of cervical and lumbar spine degenerative disk disease. Plan at this time, the patient has been ordered serial labs. The patient's thyroid panel is pending. The patient has been ordered daily CBCs. CURRENT CONSULTATION: Gastroenterology, Cardiology, Vascular Surgery, Nephrology. Referral for diabetic education, TCU evaluation ordered. CURRENT MEDICATIONS: Actigall 300 twice a day for gallbladder sludge, Drisdol 50,000 weekly, Humalog high-dose sliding scale coverage, magnesium oxide 400 mg daily, Norvasc 10 mg daily, Protonix 40 mg IV every 12, Seroquel 300 mg at bedtime, IV fluid 0.9 normal saline at 100 mL an hour, allopurinol 300 mg daily. Abdominal ultrasound results pending. Echo with Doppler results pending. The patient still on liquid diet as ordered by Dr. Chemo [place] today. The patient has been ordered head of the bed at 30 degrees, out of bed to chair, BRANDAN nickerson, SCDs. Occupational therapy, physical therapy ordered. The patient ordered to be transferred out of the ICU. The patient will be continued on the above therapeutic intervention, awaiting the results of the abdominal ultrasound and the echo Doppler report. The patient's further management will be dependent upon the patient's clinical condition, hemodynamic status and as per the patient's response to therapeutic intervention and as per recommendation by Gastroenterology, Cardiology and Nephrology. The patient's serial labs have been ordered. The patient will be continued on IV fluid with repeat CMP, LFT, magnesium has been ordered. Hemoglobin A1c is pending. B12, folate are pending. Ferritin is pending. Erythropoietin level is pending. The patient updated about her condition in layman's language. All questions concerned answered. Dictated and electronically signed, not read. Jack Anderson MD
[2018-01-06] MEDS ORDERED: Non Formulary Medication (Bisoprolol/Hctz [Ziac 10-6.25 Mg] 1 TAB) PO SCH (10:00)
--- NOTE | 2018-01-06 10:21 | CP.PCM.PN ---
Subjective - Date & Time of Evaluation Date of Evaluation: 01/06/18 Time of Evaluation: 07:40 - Subjective Subjective: General Surgery Note for Dr. Mcnamara Patient seen and examined at bedside. Patient was transfused 2 units PRBC overnight. Hgb responded appropriately and now stable. Patient is resting in bed comfortably. Patient denies any pain. She has not had any bloody BMs or melena. Patient has no complaints at this time. Objective - Vital Signs/Intake and Output Vital Signs (last 24 hours): Temp Pulse Resp BP Pulse Ox 98.3 F 56 L 19 119/56 L 100 01/06/18 06:00 01/06/18 06:00 01/05/18 22:55 01/06/18 09:06 01/05/18 17:20 Intake and Output: 01/06/18 01/06/18 06:59 18:59 Intake Total 557 Balance 557 - Medications Medications: Current Medications Allopurinol (Zyloprim) 300 mg PO DAILY [facility] Last Admin: 01/06/18 09:09 Dose: 300 mg Amlodipine Besylate (Norvasc) 10 mg PO DAILY [facility] Last Admin: 01/06/18 09:06 Dose: 10 mg Ergocalciferol (Drisdol 50,000 Intl Units Cap) 1 cap PO Q7D [facility] Sodium Chloride (Sodium Chloride 0.9%) 1,000 mls @ 100 mls/hr IV .Q10H [facility] Last Admin: 01/06/18 05:00 Dose: 100 mls/hr Insulin Human Lispro (Humalog High) 0 units SC AC [facility] PRN Reason: Protocol Last Admin: 01/06/18 07:30 Dose: Not Given Magnesium Oxide (Mag-Ox) 400 mg PO DAILY [facility] Last Admin: 01/06/18 09:06 Dose: 400 mg Pantoprazole Sodium (Protonix Inj) 40 mg IVP Q12H [facility] Stop: 01/06/18 12:00 Last Admin: 01/06/18 08:47 Dose: 40 mg Pantoprazole Sodium (Protonix Ec Tab) 20 mg PO 0600 [facility] Quetiapine Fumarate (Seroquel) 300 mg PO HS [facility] PRN Reason: Protocol Ursodiol (Actigall) 300 mg PO BID [facility] - Labs Labs: 01/06/18 05:00 01/06/18 05:00 PT 11.4 SECONDS (9.4-12.5) 01/06/18 05:00 INR 0.99 (0.93-1.08) 01/06/18 05:00 APTT 24.0 Seconds (25.1-36.5) L 01/06/18 05:00 - Constitutional Appears: No Acute Distress - Head Exam Head Exam: ATRAUMATIC, NORMOCEPHALIC - Eye Exam Eye Exam: EOMI, Normal appearance Pupil Exam: PERRL - ENT Exam ENT Exam: Mucous Membranes Moist - Respiratory Exam Respiratory Exam: NORMAL BREATHING PATTERN - Cardiovascular Exam Cardiovascular Exam: REGULAR RHYTHM - GI/Abdominal Exam GI & Abdominal Exam: Soft, Normal Bowel Sounds. absent: Distended, Firm, Guarding, Rigid, Tenderness, Rebound - Extremities Exam Extremities Exam: Normal Capillary Refill - Neurological Exam Neurological Exam: Alert, Awake, Oriented x3 - Psychiatric Exam Psychiatric exam: Normal Affect, Normal Mood - Skin Skin Exam: Dry, Intact, Warm Assessment and Plan - Assessment and Plan (Free Text) Assessment: 87F with lower GI bleed Plan: -CLD, ADAT -Monitor bowel function and urinary output -No surgical intervention indicated at this time -Recommend colonoscopy at some point -Management as per ICU and primary -Discussed with Dr. Anders Oliva PGY1
--- NOTE | 2018-01-06 10:33 | CARD ---
APPROVED REPORT EXAM: Two-dimensional and M-mode echocardiogram with Doppler and color Doppler. INDICATION 2D DIMENSIONS IVSd1.0 (0.7-1.1cm)LVDd5.1 (3.9-5.9cm) PWd1.1 (0.7-1.1cm)LVDs3.2 (2.5-4.0cm) FS (%) 37.5 %LVEF (%)67.2 (>50%) M-Mode DIMENSIONS Left Atrium (MM)3.50 (2.5-4.0cm)Aortic Root3.10 (2.2-3.7cm) Aortic Cusp Exc.2.10 (1.5-2.0cm) Aortic Valve AoV Peak Tbewzoqo380.0cm/Fartun Peak GR.9mmHgAI P 1/2 [id number] Mitral Valve MV E Hsksugbj49.5cm/sMV A Rkrqzect374.0cm/sE/A ratio0.7 TDI Lateral E' Peak V6.24cm/sMedial E' Peak V5.07cm/sE/Lateral E'11.0 E/Medial E'13.5 Tricuspid Valve TR Peak Wcgzntuh197ls/sRAP [id number] Peak Gr.44mmHg [id number] LEFT VENTRICLE The left ventricle is normal size. There is borderline concentric left ventricular hypertrophy. The left ventricular function is normal. The left ventricular ejection fraction is within the normal range. There is normal LV segmental wall motion. Transmitral Doppler flow pattern is Grade I-abnormal relaxation pattern. RIGHT VENTRICLE The right ventricle is normal size. There is normal right ventricular wall thickness. The right ventricular systolic function is normal. ATRIA The left atrium size is normal. The right atrium size is normal. AORTIC VALVE The aortic valve is not well visualized. There is mild to moderate aortic regurgitation. There is no aortic valvular stenosis. MITRAL VALVE The mitral valve is moderately thickened. There is no mitral valve regurgitation noted. There is no mitral valve stenosis. TRICUSPID VALVE There is moderate pulmonary hypertension. GREAT VESSELS The aortic root is normal in size. PERICARDIAL EFFUSION There is no pericardial effusion. <Conclusion> The left ventricle is normal size. There is borderline concentric left ventricular hypertrophy. The left ventricular function is normal. The left ventricular ejection fraction is within the normal range. There is normal LV segmental wall motion. Transmitral Doppler flow pattern is Grade I-abnormal relaxation pattern. There is mild to moderate aortic regurgitation. There is moderate pulmonary hypertension.
--- NOTE | 2018-01-06 12:00 | US ---
HISTORY: ??CHOELCYSTITIS COMPARISON: None. TECHNIQUE: Sonographic evaluation of the abdomen. FINDINGS: LIVER: Measures 15 x 15 cm. Increased echogenicity of the liver parenchyma. No mass. No intrahepatic bile duct dilatation. GALLBLADDER: Gallbladder sludge. No stones COMMON BILE DUCT: Measures 4 mm. No stones. No dilatation. PANCREAS: Unremarkable as visualized. No mass. No ductal dilatation. RIGHT KIDNEY: Measures 9.25 by 3.07 x 5.05cm. Normal echogenicity. No calculus, mass, or hydronephrosis. LEFT KIDNEY: Measures 9.32 x 4.71 x 5.03cm. Normal echogenicity. No calculus, mass, or hydronephrosis. SPLEEN: Normal in size and contour. No mass. 7 x 4 cm AORTA: No aneurysmal dilatation. IVC: Unremarkable. OTHER FINDINGS: None. IMPRESSION: No acute findings
[2018-01-06 12:09] LABS: FERRITIN 47.1 ng/mL
[2018-01-06 12:38] LABS: FREE T4 0.95 ng/dL (0.78-2.19); T4 6.3 ug/dL (5.5-11.0)
[2018-01-06 12:40] LABS: FOLATE > 20.0 ng/mL
--- NOTE | 2018-01-06 14:21 | CP.PCM.CON ---
History of Present Illness - History of Present Illness History of Present Illness: Vascular Surgery Consult: Dr. Espinosa Pt is an 87F with PMHx significant for DM, HTN & HLD who presented to [facility] [place] on 01/05 for complaints of bright red blood per rectum. Pt admitted to having 3-4 BMs with bright red blood. She denied having similar episodes in the past. She was admitted to the ICU for LGIB and given [address] scan of her abdomen/ pelvis was obtained and an incidental infra-renal AAA was found 4x4.8x5 cm. Vascular surgery consulted to evaluate. Currently, pt is resting comfortably in ICU bed. States she feels well and denies any abdominal pain. Pt states she hasn't had any more bloody BMs. She is tolerating CLD and denies N/V, F/C. Review of her chart shows no prior imaging to compare the size of her AAA. PMHx: as stated above PSHx: hysterectomy for fibroids SocialHx: 40+ year smoking hx, quit 20 yrs ago, denies EtOH/drugs NKDA Review of Systems - Review of Systems All systems: reviewed and no additional remarkable complaints except (as per HPI ) Past Patient History - Past Medical History & Family History Past Medical History?: Yes Past Family History: Reviewed and not pertinent - Past Social History Smoking Status: Former Smoker - CARDIAC Hx Hypercholesterolemia: Yes - PULMONARY Hx Respiratory Disorders: No - NEUROLOGICAL Hx Neurological Disorder: No - HEENT Hx HEENT Problems: No - RENAL Hx Chronic Kidney Disease: No - ENDOCRINE/METABOLIC Hx Diabetes Mellitus Type 2: Yes - HEMATOLOGICAL/ONCOLOGICAL Hx Blood Disorders: No - INTEGUMENTARY Hx Dermatological Problems: No - MUSCULOSKELETAL/RHEUMATOLOGICAL Hx Falls: Yes - GASTROINTESTINAL Hx Gastrointestinal Disorders: No - GENITOURINARY/GYNECOLOGICAL Hx Genitourinary Disorders: No - PSYCHIATRIC Hx Psychophysiologic Disorder: No Hx Substance Use: No - SURGICAL HISTORY Hx Surgeries: Yes Hx Hysterectomy: Yes Meds Allergies/Adverse Reactions: Allergies Allergy/AdvReac Type Severity Reaction Status Date / Time No Known Allergies Allergy Verified 01/05/18 10:11 - Medications Medications: Current Medications Allopurinol (Zyloprim) 300 mg PO DAILY [facility] Last Admin: 01/06/18 09:09 Dose: 300 mg Amlodipine Besylate (Norvasc) 10 mg PO DAILY [facility] Last Admin: 01/06/18 09:06 Dose: 10 mg Ergocalciferol (Drisdol 50,000 Intl Units Cap) 1 cap PO Q7D [facility] Sodium Chloride (Sodium Chloride 0.9%) 1,000 mls @ 100 mls/hr IV .Q10H [facility] Last Admin: 01/06/18 05:00 Dose: 100 mls/hr Insulin Human Lispro (Humalog High) 0 units SC AC [facility] PRN Reason: Protocol Last Admin: 01/06/18 13:06 Dose: Not Given Magnesium Oxide (Mag-Ox) 400 mg PO DAILY [facility] Last Admin: 01/06/18 09:06 Dose: 400 mg Pantoprazole Sodium (Protonix Ec Tab) 20 mg PO 0600 [facility] Quetiapine Fumarate (Seroquel) 300 mg PO HS [facility] PRN Reason: Protocol Ursodiol (Actigall) 300 mg PO BID [facility] Last Admin: 01/06/18 10:39 Dose: 300 mg Physical Exam - Constitutional Appears: Well, No Acute Distress - Head Exam Head Exam: ATRAUMATIC, NORMOCEPHALIC - ENT Exam ENT Exam: Mucous Membranes Moist - Respiratory Exam Respiratory Exam: NORMAL BREATHING PATTERN - Cardiovascular Exam Cardiovascular Exam: RRR - GI/Abdominal Exam GI & Abdominal Exam: Soft. absent: Distended, Guarding, Tenderness - Neurological Exam Neurological exam: Alert, Oriented x3 - Skin Skin Exam: Dry, Warm Results - Vital Signs Recent Vital Signs: Last Vital Signs Temp 98.3 F 01/06/18 10:00 Pulse 71 01/06/18 10:00 Resp 19 01/05/18 22:55 BP 136/73 01/06/18 10:00 Pulse Ox 98 01/06/18 10:00 - Labs Result Diagrams: 01/06/18 05:00 01/06/18 05:00 Labs: Laboratory Results - last 24 hr 01/05/18 01/05/18 01/05/18 21:31 23:19 23:19 WBC 10.5 D RBC 3.89 Hgb 10.5 L Hct 33.2 L MCV 85.3 MCH 27.0 MCHC 31.6 RDW 16.0 H Plt Count 171 MPV 10.7 Gran % Lymph % (Auto) [place] % (Auto) Eos % (Auto) Baso % (Auto) Gran # Lymph # (Auto) [place] # (Auto) Eos # (Auto) Baso # (Auto) PT INR APTT Sodium Potassium Chloride Carbon Dioxide Anion Gap BUN Creatinine Est GFR ( Amer) Est GFR (Non-Af Amer) POC Glucose (mg/dL) 147 H Random Glucose Uric Acid Calcium Phosphorus Magnesium Iron TIBC % Saturation Ferritin 47.1 Total Bilirubin Direct Bilirubin AST ALT Alkaline Phosphatase Total Protein Albumin Globulin Albumin/Globulin Ratio Triglycerides Cholesterol LDL Cholesterol Direct HDL Cholesterol Vitamin B12 > 1000 H Folate > 20.0 Free T4 Thyroxine (T4) TSH 3rd Generation 01/05/18 01/06/18 01/06/18 23:19 05:00 05:00 WBC 8.8 RBC 4.07 Hgb 11.0 L Hct 34.8 L MCV 85.5 MCH 27.0 MCHC 31.6 RDW 16.2 H Plt Count 170 MPV 10.5 Gran % 58.8 Lymph % (Auto) 31.3 [place] % (Auto) 6.5 H Eos % (Auto) 3.2 Baso % (Auto) 0.2 Gran # 5.19 Lymph # (Auto) 2.8 [place] # (Auto) 0.6 Eos # (Auto) 0.3 Baso # (Auto) 0.02 PT INR APTT Sodium 148 Potassium 3.8 Chloride 109 H Carbon Dioxide 29 Anion Gap 13 BUN 26 H Creatinine 1.1 Est GFR ( Amer) 57 Est GFR (Non-Af Amer) 47 POC Glucose (mg/dL) Random Glucose 166 H Uric Acid 6.5 H Calcium 9.6 Phosphorus 2.6 Magnesium 2.3 H Iron 91 TIBC 261 L % Saturation 35 Ferritin Total Bilirubin 0.4 Direct Bilirubin 0.4 AST 49 H D ALT 28 Alkaline Phosphatase 73 Total Protein 5.9 Albumin 3.3 Globulin 2.5 Albumin/Globulin Ratio 1.3 Triglycerides 102 Cholesterol 119 L LDL Cholesterol Direct 53 HDL Cholesterol 39 Vitamin B12 Folate Free T4 Thyroxine (T4) TSH 3rd Generation 01/06/18 01/06/18 01/06/18 05:00 05:00 07:06 WBC RBC Hgb Hct MCV MCH MCHC RDW Plt Count MPV Gran % Lymph % (Auto) [place] % (Auto) Eos % (Auto) Baso % (Auto) Gran # Lymph # (Auto) [place] # (Auto) Eos # (Auto) Baso # (Auto) PT 11.4 INR 0.99 APTT 24.0 L Sodium Potassium Chloride Carbon Dioxide Anion Gap BUN Creatinine Est GFR ( Amer) Est GFR (Non-Af Amer) POC Glucose (mg/dL) 168 H Random Glucose Uric Acid Calcium Phosphorus Magnesium Iron TIBC % Saturation Ferritin Total Bilirubin Direct Bilirubin AST ALT Alkaline Phosphatase Total Protein Albumin Globulin Albumin/Globulin Ratio Triglycerides Cholesterol LDL Cholesterol Direct HDL Cholesterol Vitamin B12 Folate Free T4 0.95 Thyroxine (T4) 6.3 TSH 3rd Generation 1.59 - Imaging and Cardiology CT scan - abdomen Status: Image reviewed by me, Report reviewed by me Assessment & Plan - Assessment and Plan (Free Text) Assessment: 87F with incidental infra-renal AAA found on CT abdomen pelvis Plan: - pt is just at the cutoff for surgical intervention; however is asymptomatic - will need close follow up to evaluate the size of the aneurysm and make sure it's not getting bigger - recommend repeat imaging with US/CT in 3-6 months - no surgical intervention at this time - d/w Dr. Espinosa who agrees with above Alexander, PGY-3
[2018-01-07] MEDS ORDERED: Pantoprazole 20 mg EC Tab PO SCH (06:00)
[2018-01-07 07:29] LABS: BASO # 0.03 K/mm3 (0.0-2.0); BASO % 0.4 % (0.0-3.0); EOS # 0.4 (0.0-0.7); EOS % 4.9 % (1.5-5.0); GRAN # 3.77 (1.4-6.5); GRAN % 50.9 % (50.0-68.0); HEMOGLOBIN 10.2 g/dL (12.0-16.0); LYMPH # 2.8 (1.2-3.4); LYMPH % 37.1 % (22.0-35.0); MEAN CELL VOLUME 84.8 fl (80.0-105.0); MEAN CORPUSCULAR HEMOGLOBIN 26.4 pg (25.0-35.0); MEAN CORPUSCULAR HGB CONC 31.1 g/dl (31.0-37.0); MEAN PLATELET VOLUME 11.5 fl (7.0-11.0); MONO # 0.5 (0.1-0.6); MONO % 6.7 % (1.0-6.0); RBC 3.87 10^6/uL (3.5-6.1); WHITE BLOOD COUNT 7.4 10^3/ul (4.5-11.0)
[2018-01-07 07:58] LABS: ALB/GLOB RATIO 1.2 (1.1-1.8); ALT/SGPT 32 U/L (7-56); AST/SGOT 52 U/L (14-36); BILIRUBIN,DIRECT 0.3 mg/dL (0.0-0.4); BLOOD UREA NITROGEN 17 mg/dL (7-21); CALCIUM 9.7 mg/dL (8.4-10.5); GFR AFRICAN-AMERICAN > 60; GFR NON-AFRICAN AMERICAN 52
[2018-01-07] MEDS: Insulin Lispro (HUMAlog) HIGH Coverage SC SCH ×3 (08:17→17:28)
[2018-01-07] MEDS: Magnesium Oxide 400 mg Tab UD PO SCH (09:25)
[2018-01-07] MEDS: Docusate-Senna 50 mg-8.6 mg Tab PO SCH ×2 (09:25→17:30)
--- NOTE | 2018-01-07 10:15 | CP.PCM.PN ---
Subjective - Date & Time of Evaluation Date of Evaluation: 01/07/18 Time of Evaluation: 07:40 - Subjective Subjective: Patient seen and examined at bedside this AM. No adverse events overnight. Patient denies any nausea, vomiting, or any other symptoms. Patient has had no bowel function since admit and has been tolerating her CLD Objective - Vital Signs/Intake and Output Vital Signs (last 24 hours): Temp Pulse Resp BP Pulse Ox 98.4 F 66 18 120/62 100 01/07/18 07:51 01/07/18 07:51 01/07/18 07:51 01/07/18 09:25 01/07/18 07:51 Intake and Output: 01/07/18 01/07/18 06:59 18:59 Intake Total 0 Balance 0 - Medications Medications: Current Medications Allopurinol (Zyloprim) 300 mg PO DAILY [facility] Last Admin: 01/07/18 09:25 Dose: 300 mg Amlodipine Besylate (Norvasc) 10 mg PO DAILY [facility] Last Admin: 01/07/18 09:25 Dose: 10 mg Ergocalciferol (Drisdol 50,000 Intl Units Cap) 1 cap PO Q7D [facility] Sodium Chloride (Sodium Chloride 0.9%) 1,000 mls @ 100 mls/hr IV .Q10H [facility] Last Admin: 01/06/18 05:00 Dose: 100 mls/hr Insulin Human Lispro (Humalog High) 0 units SC AC [facility] PRN Reason: Protocol Last Admin: 01/07/18 08:17 Dose: 4 units Magnesium Oxide (Mag-Ox) 400 mg PO DAILY [facility] Last Admin: 01/07/18 09:25 Dose: 400 mg Pantoprazole Sodium (Protonix Ec Tab) 20 mg PO 0600 [facility] Last Admin: 01/07/18 05:52 Dose: 20 mg Quetiapine Fumarate (Seroquel) 300 mg PO HS [facility] PRN Reason: Protocol Last Admin: 01/06/18 23:06 Dose: 300 mg Senna/Docusate Sodium (Senokot S 50 Mg-8.6 Mg) 2 tab PO BID [facility] Last Admin: 01/07/18 09:25 Dose: 2 tab Ursodiol (Actigall) 300 mg PO BID [facility] Last Admin: 01/07/18 09:25 Dose: 300 mg - Labs Labs: 01/07/18 07:00 01/07/18 07:00 PT 11.4 SECONDS (9.4-12.5) 01/06/18 05:00 INR 0.99 (0.93-1.08) 01/06/18 05:00 APTT 24.0 Seconds (25.1-36.5) L 01/06/18 05:00 - Constitutional Appears: Well, Non-toxic, No Acute Distress - Head Exam Head Exam: ATRAUMATIC, NORMOCEPHALIC - Eye Exam Eye Exam: Normal appearance. absent: Conjunctival injection, Scleral icterus - ENT Exam ENT Exam: Mucous Membranes Moist, Normal Oropharynx - Respiratory Exam Respiratory Exam: NORMAL BREATHING PATTERN. absent: Accessory Muscle Use, Respiratory Distress - Cardiovascular Exam Cardiovascular Exam: RRR - GI/Abdominal Exam GI & Abdominal Exam: Soft. absent: Distended, Tenderness - Extremities Exam Extremities Exam: absent: Calf Tenderness, Pedal Edema, Tenderness - Neurological Exam Neurological Exam: Alert, Awake, Oriented x3 - Psychiatric Exam Psychiatric exam: Normal Affect, Normal Mood - Skin Skin Exam: Dry, Intact, Normal Color, Warm Assessment and Plan - Assessment and Plan (Free Text) Assessment: 87F with GI bleed and diverticulosis Plan: Continue to trend H/H: hgb 10.2 down from 11 yesterday with no tachycardia or hypotension Continue to monitor for bowel function--restarted home senokot for constipation CLD as ordered by GI Continue to look for GI recs--patient might benefit from a colonoscopy if deemed warranted by GI No indication for surgery at this time Discussed with Dr. Angela Doe, PGY2
--- NOTE | 2018-01-07 19:34 | PN ---
DATE: 01/07/2018 SUBJECTIVE: The patient is seen in room 567, bed 2. The patient is out of bed to chair. The patient is alert, awake, oriented x3. The patient denies any more rectal bleeding. The patient denies any constipation. Denies any hemoptysis. Denies any melena or hematochezia. PHYSICAL EXAMINATION: VITAL SIGNS: T-max 99.4-98.8. The patient is also complaining of some leg swelling. Heart rate 66, 81; blood pressure ranging in the last 24 hours to 192/58, 137/54, 118/55, 120/62, 151/83; respiration 18; O2 sat 100%. HEENT: Head examination normocephalic, atraumatic. HEENT examination shows pinkish pale conjunctivae. Anicteric sclerae. No oropharyngeal lesion. No neck rigidity. CHEST: Kyphosis. LUNGS: Shows no rales, crackles or wheezing. CARDIOVASCULAR: S1, S2, regular rhythm. Questionable soft murmur, left sternal border, right second intercostal space. ABDOMEN: Protuberant. Positive bowel sound. Unable to appreciate any hepatosplenomegaly. GENITALIA: Female. RECTAL: Deferred. EXTREMITY: Shows some trace swelling of the lower extremity. No calf tenderness. No Homans' sign. MUSCULOSKELETAL: Shows a body mass index of 38. PSYCHIATRIC: Negative for anxiety, depression. Negative for suicidal or homicidal ideation. Negative for auditory or visual hallucination. DIAGNOSTICS: On 01/07/2018, WBC 7.4, hemoglobin and hematocrit 10.2 and 32.8, platelets 187. Sodium 144, potassium 3.9, chloride 107, CO2 of 28, anion gap 13, BUN 17, creatinine 1, GFR greater than 60. Fingerstick blood sugar 250, 284, 226, 221, 233, 318. Calcium 9.7, magnesium 2.1. AST is 52. Rest of the LFTs are normal. Vitamin D 25-hydroxy 47.2, cholesterol 119, triglyceride 102, LDL 53, HDL 39. Vitamin B12 greater than 1000, folate greater than 20. Thyroid profile is within normal limit. MRSA nondetected. CAT scan of the abdomen and pelvis and abdominal sonogram reviewed. IMPRESSION AND PLAN: 1. Status post lower gastrointestinal bleeding with bright red blood per rectum. 2. Acute blood loss anemia secondary to gastrointestinal bleeding. 3. Hematochezia with lower gastrointestinal bleeding and acute blood loss anemia. 4. Hypertension. 5. Status post packed red blood cell transfusion x2. 6. Granulocytosis. 7. Status post acute kidney injury. 8. Chronic kidney disease stage 3. 9. 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 Hemoglobin A1c of 6.9. 10. Hyperuricemia. 11. Elevated AST, etiology undetermined. 12. Mild protein malnutrition. 13. Left ventricular ejection fraction of 67%. 14. Concentric left ventricular hypertrophy with grade 1 abnormal relaxation pattern. 15. Pulmonary hypertension with right ventricular systolic pressure of 54 mmHg. 16. Moderate aortic regurgitation. 17. Moderately thickened mitral valve. 18. Moderate pulmonary hypertension. 19. Gallbladder sludge. 20. Right lower lobe volume loss with possible fibrosis. 21. Mild right-sided mediastinal shift and elevation of the left hemidiaphragm. 22. Cardiomegaly. 23. Sigmoid diverticulosis. 24. Infrarenal fusiform abdominal aortic aneurysm 4 cm x 4.8 cm x 5 cm. 25. Grade 1 spondylolisthesis of lumbar spine with advanced facet joint degenerative arthropathy. 26. Deconditioning. 27. Gait dysfunction and weight loss. 28. History of hypertension, history of insulin-requiring diabetes mellitus. 29. Hypomagnesemia. 30. History of Seroquel. Plan at this time, the patient was seen by Gastroenterology. The patient has been put on liquid diet for breakfast for tomorrow. Serial labs have been ordered. Consultation: Cardiology, Surgery, Gastroenterology. Diabetic education, TCU eval. Current medications: Actigall 300 mg twice a day, Drisdol 50,000 weekly, Humalog high-dose sliding scale coverage before meals, magnesium oxide 400 mg daily, Norvasc 10 mg daily, Protonix 40 mg daily. Senokot 2 tablets twice a day, Seroquel 300 at bedtime, allopurinol 300 mg daily. The patient;s nurses has been advised to place BRANDAN stockings on both legs and elevate both legs on the chair. The patient is scheduled for GI procedure tomorrow which the patient is agreeable to. Dictated and electronically signed, not read. Jack Anderson MD [facility] # [id number]
[2018-01-08] MEDS: Pantoprazole 40 mg EC Tab PO SCH ×2 (05:46→17:29)
[2018-01-08 06:57] LABS: BASO # 0.02 K/mm3 (0.0-2.0); BASO % 0.3 % (0.0-3.0); EOS # 0.3 (0.0-0.7); EOS % 3.7 % (1.5-5.0); GRAN # 4.43 (1.4-6.5); GRAN % 60.2 % (50.0-68.0); HEMOGLOBIN 10.6 g/dL (12.0-16.0); LYMPH # 2.1 (1.2-3.4); MEAN CELL VOLUME 85.4 fl (80.0-105.0); MEAN CORPUSCULAR HEMOGLOBIN 26.8 pg (25.0-35.0); MEAN CORPUSCULAR HGB CONC 31.4 g/dl (31.0-37.0); MEAN PLATELET VOLUME 10.7 fl (7.0-11.0); MONO # 0.5 (0.1-0.6); MONO % 6.8 % (1.0-6.0); RBC 3.96 10^6/uL (3.5-6.1); WHITE BLOOD COUNT 7.4 10^3/ul (4.5-11.0)
--- NOTE | 2018-01-08 07:25 | CON ---
DATE: 01/06/2018 CONSULTATION IN GASTROENTEROLOGY REQUESTING PHYSICIAN: Jack Anderson MD. REASON FOR CONSULTATION: I have been asked to see this 87-year-old female with history of hypertension, hyperlipidemia. Comes to the hospital with 3 episodes of rectal bleeding. She denied any abdominal pain, nausea, vomiting, chest pain, shortness of breath. The patient had a colonoscopy many years ago, but does not remember the results. Routine blood work in the emergency room showed her hemoglobin to be at 8.8. Her normal baseline is around 11.5 g. Bleeding scan performed in the emergency room was negative for active bleeding. CT scan of the abdomen and pelvis performed in the hospital revealed diverticulosis in the left colon. No mass. No mural thickening of the colon to suggest colitis. The patient has not had any further bleeding since her hospitalization. Her hemoglobin after 2 units of packed red blood cells is up to 10.5 g. She offers no complaints. Again, she has not had any further bleeding since her hospitalization. PAST MEDICAL HISTORY: Notable for diabetes mellitus and hyperlipidemia. PAST SURGICAL HISTORY: Notable for hysterectomy. SOCIAL HISTORY: She quit smoking many years ago. She denies alcohol use. FAMILY HISTORY: Noncontributory. REVIEW OF SYSTEMS: Fourteen-point review of systems is just notable for rectal bleeding. No abdominal pain, shortness of breath, chest pain, melena, nausea or vomiting. MEDICATIONS AT HOME: Include lisinopril, magnesium oxide, Ziac, atorvastatin, Norvasc and ergocalciferol. PHYSICAL EXAMINATION: VITAL SIGNS: Reveal temperature of 97.3, blood pressure 146/49, heart rate of 66. HEENT: Reveals sclerae to be white. Conjunctivae pink. NECK: Supple. CHEST: Reveal lungs to be clear. HEART: Exam reveals regular rate and rhythm. Abdomen is soft, nontender. EXTREMITY: Shows no edema. LABORATORY DATA: Reveal white blood cell count 10.5, hemoglobin 10.5, platelet count of 171,000. Coags are normal. Chemistries reveal BUN 36, creatinine 1.3. AST, ALT, alk phos were all normal. IMPRESSION: 1. Lower gastrointestinal bleed, most likely secondary to diverticulosis. The patient has not had any bleeding since her hospitalization. 2. Anemia secondary to gastrointestinal bleeding. 3. Diabetes mellitus. RECOMMENDATIONS: 1. I will start the patient on a clear liquid diet. 2. Follow serial hematocrits. 3. Consider colonoscopy sometime next week. Chemo Cleveland MD cc: MD Emanuel (Delete if not dictated.)
[2018-01-08 07:37] LABS: ALB/GLOB RATIO 1.2 (1.1-1.8); ALBUMIN 3.1 g/dL (3.0-4.8); ALT/SGPT 36 U/L (7-56); AST/SGOT 46 U/L (14-36); BILIRUBIN,DIRECT 0.3 mg/dL (0.0-0.4); BLOOD UREA NITROGEN 12 mg/dL (7-21); CALCIUM 9.7 mg/dL (8.4-10.5); GFR AFRICAN-AMERICAN > 60; GFR NON-AFRICAN AMERICAN 59
--- NOTE | 2018-01-08 07:46 | CP.PCM.PN ---
Subjective - Date & Time of Evaluation Date of Evaluation: 01/08/18 Time of Evaluation: 07:30 - Subjective Subjective: Patient seen and examined at bedside. No adverse events overnight. Patient reports no further hematochezia and denies melena. Reports two soft brown bowel movements since yesterday. Denies any nausea, vomiting, diarrhea, abdominal pain , chest pain, shortness of breath. Objective - Vital Signs/Intake and Output Vital Signs (last 24 hours): Temp Pulse Resp BP Pulse Ox 99.3 F 79 18 164/65 H 95 01/07/18 22:00 01/07/18 22:00 01/07/18 22:00 01/07/18 22:00 01/07/18 22:00 Intake and Output: 01/08/18 01/08/18 06:59 18:59 Intake Total 780 Output Total 0 Balance 780 - Medications Medications: Current Medications Allopurinol (Zyloprim) 300 mg PO DAILY [facility] Last Admin: 01/07/18 09:25 Dose: 300 mg Amlodipine Besylate (Norvasc) 10 mg PO DAILY [facility] Last Admin: 01/07/18 09:25 Dose: 10 mg Ergocalciferol (Drisdol 50,000 Intl Units Cap) 1 cap PO Q7D [facility] Insulin Human Lispro (Humalog High) 0 units SC AC [facility] PRN Reason: Protocol Last Admin: 01/07/18 17:28 Dose: 7 units Magnesium Oxide (Mag-Ox) 400 mg PO DAILY [facility] Last Admin: 01/07/18 09:25 Dose: 400 mg Pantoprazole Sodium (Protonix Ec Tab) 40 mg PO 0600,1600 [facility] Last Admin: 01/08/18 05:46 Dose: 40 mg Quetiapine Fumarate (Seroquel) 300 mg PO HS [facility] PRN Reason: Protocol Last Admin: 01/07/18 22:15 Dose: 300 mg Senna/Docusate Sodium (Senokot S 50 Mg-8.6 Mg) 2 tab PO BID [facility] Last Admin: 01/07/18 17:30 Dose: 2 tab Ursodiol (Actigall) 300 mg PO BID [facility] Last Admin: 01/07/18 09:25 Dose: 300 mg - Labs Labs: 01/08/18 06:15 01/08/18 06:15 PT 11.4 SECONDS (9.4-12.5) 01/06/18 05:00 INR 0.99 (0.93-1.08) 01/06/18 05:00 APTT 24.0 Seconds (25.1-36.5) L 01/06/18 05:00 - Constitutional Appears: Well, Non-toxic, No Acute Distress - Head Exam Head Exam: ATRAUMATIC, NORMOCEPHALIC - Eye Exam Eye Exam: Normal appearance - ENT Exam ENT Exam: Mucous Membranes Moist - Respiratory Exam Respiratory Exam: Clear to Ausculation Bilateral, NORMAL BREATHING PATTERN - Cardiovascular Exam Cardiovascular Exam: RRR - GI/Abdominal Exam GI & Abdominal Exam: Soft. absent: Distended, Guarding, Rigid, Tenderness - Extremities Exam Extremities Exam: Normal Inspection. absent: Calf Tenderness - Neurological Exam Neurological Exam: Alert, Awake - Skin Skin Exam: Dry, Intact, Normal Color Assessment and Plan - Assessment and Plan (Free Text) Assessment: 87F with GI bleed and diverticulosis Plan: H/H stable since yesterday (10.6, up from 10.2 yesterday), VSS Patient reports 2 soft BMs yesterday; continue senokot Advance diet as tolerated per GI Pending colonoscopy tomorrow with GI No indication for surgery at this time Alexei Cheek, PGY1
[2018-01-08] MEDS: Insulin Lispro (HUMAlog) HIGH Coverage SC SCH ×3 (08:21→17:29)
--- NOTE | 2018-01-08 09:51 | PN ---
DATE: 01/06/2018 SUBJECTIVE: The patient received 2 units of packed RBC transfusion. She has no reported melena. Today, no shortness of breath or chest pain. PHYSICAL EXAMINATION: VITAL SIGNS: Blood pressure 119/56, heart rate 84, temperature 98.3, respirations 20. HEENT: Normocephalic. CHEST: Clear. HEART: S1 and S2, regular. ABDOMEN: Soft. EXTREMITIES: No edema. LABORATORY DATA: Today's hemoglobin and hematocrit are 11 and 34.8. White count and platelet count are within normal limits. Today's SMA-7, sodium 148, potassium 3.8, chloride 109, CO2 of 29. Glucose 166. BUN 26, creatinine 1.1. Abdominal ultrasound was performed, but the report is still pending. Echocardiography study revealed normal left ventricular systolic function, [id number] aortic insufficiency and moderate pulmonary hypertension. ASSESSMENT: 1. Status post lower gastrointestinal bleeding, requiring 2 units of packed red blood cells transfusion. 2. Asse-qe-fsoqyxjt aortic insufficiency. 3. Hypertension. 4. Diabetes mellitus. 5. Moderate pulmonary hypertension. CONDITIONS: Continue current Norvasc 10 mg once a day, Protonix 20 mg p.o. once a day, Zyloprim 300 mg daily. The patient can undergo endoscopic studies from the cardiac point of view. Varun Neumann MD
[2018-01-08] MEDS: Docusate-Senna 50 mg-8.6 mg Tab PO SCH ×2 (09:53→17:29)
[2018-01-08] MEDS: Magnesium Oxide 400 mg Tab UD PO SCH (09:57)
[2018-01-08] MEDS ORDERED: Magnesium Citrate Oral SOL (300 ml) PO ONE ×2 (11:26→18:00)
--- NOTE | 2018-01-08 11:50 | CP.PCM.PN ---
Subjective - Date & Time of Evaluation Date of Evaluation: 01/08/18 Time of Evaluation: 06:00 - Subjective Subjective: Patient seen and evaluated bedside. No acute issues overnight. Patient denies any hematochezia or melena. Reports two soft brown bowel movements since yesterday. Denies vomiting, diarrhea, abdominal pain, chest pain, shortness of breath or any other complaints at this time. Objective - Vital Signs/Intake and Output Vital Signs (last 24 hours): Temp Pulse Resp BP Pulse Ox 99.3 F 79 18 147/70 95 01/07/18 22:00 01/07/18 22:00 01/07/18 22:00 01/08/18 09:53 01/07/18 22:00 Intake and Output: 01/08/18 01/08/18 06:59 18:59 Intake Total 780 450 Output Total 0 Balance 780 450 - Medications Medications: Current Medications Allopurinol (Zyloprim) 300 mg PO DAILY [facility] Last Admin: 01/08/18 09:53 Dose: 300 mg Amlodipine Besylate (Norvasc) 10 mg PO DAILY [facility] Last Admin: 01/08/18 09:53 Dose: 10 mg Ergocalciferol (Drisdol 50,000 Intl Units Cap) 1 cap PO Q7D [facility] Insulin Human Lispro (Humalog High) 0 units SC AC [facility] PRN Reason: Protocol Last Admin: 01/08/18 08:21 Dose: 4 units Magnesium Citrate (Citrate Of Mag) 300 ml PO ONCE ONE Stop: 01/08/18 18:01 Magnesium Oxide (Mag-Ox) 400 mg PO DAILY [facility] Last Admin: 01/08/18 09:57 Dose: 400 mg Pantoprazole Sodium (Protonix Ec Tab) 40 mg PO 0600,1600 [facility] Last Admin: 01/08/18 05:46 Dose: 40 mg Quetiapine Fumarate (Seroquel) 300 mg PO HS [facility] PRN Reason: Protocol Last Admin: 01/07/18 22:15 Dose: 300 mg Senna/Docusate Sodium (Senokot S 50 Mg-8.6 Mg) 2 tab PO BID [facility] Last Admin: 01/08/18 09:53 Dose: 2 tab Ursodiol (Actigall) 300 mg PO BID [facility] Last Admin: 01/08/18 09:57 Dose: 300 mg - Labs Labs: 01/08/18 06:15 01/08/18 06:15 PT 11.4 SECONDS (9.4-12.5) 01/06/18 05:00 INR 0.99 (0.93-1.08) 01/06/18 05:00 APTT 24.0 Seconds (25.1-36.5) L 01/06/18 05:00 - Constitutional Appears: Non-toxic, No Acute Distress - Head Exam Head Exam: ATRAUMATIC, NORMAL INSPECTION, NORMOCEPHALIC - Eye Exam Eye Exam: Normal appearance - ENT Exam ENT Exam: Mucous Membranes Moist - Respiratory Exam Respiratory Exam: Clear to Ausculation Bilateral, NORMAL BREATHING PATTERN - Cardiovascular Exam Cardiovascular Exam: REGULAR RHYTHM, +S1, +S2 - Neurological Exam Neurological Exam: Alert, Awake, Oriented x3 Assessment and Plan - Assessment and Plan (Free Text) Assessment: 87yo female with history of HTN, HLD, DM type 2 presents c/o hematochezia on admission. Plan: 1. Hematochezia secondary to GI bleed -2 large bore IV's -IVF hydration as ordered -Vitals presently within normal limits -Hgb stable -Bleeding scan negative for active bleeding -CT abd/pelvis with PO showed sigmoid diverticulosis, biliary sludge, infrarenal AAA. no surgical intervention as per surgery, monitor 3-6 months with repeat imaging -CLD -GI consulted - Dr. Cleveland, will perform colonoscopy -Surgery consulted 2. HTN -Continue home medications including norvasc, hctz, bisoprolol, lisinopril 3. Hyperlipidemia -Continue home atorvastatin 4. DM type 2 -Fingersticks q4h -Sliding scale once patient cleared to eat by GI 5. GI/DVT Prophylaxis -Protonix/SCD's
--- NOTE | 2018-01-08 13:38 | PN ---
DATE: 01/08/2018 SUBJECTIVE: The patient is seen. The patient is in room 567, bed 2. Overnight nurse's notes were reviewed. The patient slept well without any adverse events documented. The patient denies any constipation or diarrhea. Denies any rectal bleeding. Denies any hematemesis or melena. Denies any hematochezia. OBJECTIVE: VITAL SIGNS: T-max 99.4; pulse 78 to 81 beats per minute; blood pressure 151/83, 164/65, 164/65; respirations 18; O2 sat 95%. HEENT: Head: Normocephalic, atraumatic. Pinkish pale conjunctivae. Anicteric sclerae. No jugular venous distention. CHEST: Kyphosis. LUNGS: Show questionable decreased breath sound at the left base. CARDIOVASCULAR: S1 and S2, regular rhythm. Questionable soft systolic murmur at the left sternal border, right second intercostal space, left second intercostal space. ABDOMEN: Protuberant. Positive bowel sound. No hepatosplenomegaly appreciated. GENITALIA: Female. RECTAL: Deferred. EXTREMITIES: Trace swelling of the lower extremity. Positive BRANDAN stocking. MUSCULOSKELETAL: Shows body mass index as per the BMI of the [employer], which is elevated. NEUROLOGIC: The patient is alert, awake, and oriented x3. She is able to move upper and lower extremity without assistance. Gait examination is not tested. VASCULAR: Palpable pulses. DIAGNOSTICS: 01/08/2018: WBC 7.4, hemoglobin and hematocrit 10.6 and 33.8, platelets 193. Sodium 143, potassium 4.9, chloride 109, CO2 of 30. BUN 12, creatinine 0.9. Glucose 251. Calcium 9.7, magnesium 1.9. AST 46, rest of the LFTs are normal. IMPRESSION: 1. Status post gastrointestinal bleeding possibly lower gastrointestinal bleeding with bright red blood per rectum. 2. Acute blood loss anemia secondary to gastrointestinal bleeding. 3. Status post packed red blood cell transfusion x2. 4. Low-grade fever. 5. Hypertension. 6. Normocytic anemia secondary to acute blood loss anemia. 7. Insulin-requiring diabetes mellitus with hyperglycemia. 8. Bilateral lower extremity venous stasis (resolving). 9. Hypertensive cardiovascular disease. 10. Morbid obesity. 11. Diabetic neuropathy. 12. Cervical and lumbar spine degenerative disk disease. 13. Severe lumbar spine spinal stenosis. 14. Questionable history of depression versus bipolar disorder versus schizophrenia. 15. Hyperlipidemia. PLAN: At this time, the patient is awaiting further GI intervention and workup and diagnostic testing. The patient was seen by Gastroenterology. The patient will be continued on GI prophylaxis with high-dose PPI. The patient will be continued on insulin sliding scale coverage. The patient will be continued on antihypertensive medication. The patient will be continued on all her medications as per the MAR. The patient's further management is dependent upon the patient's clinical condition, hemodynamic status, and as per the patient's response to therapeutic intervention as per the patient's diagnostic test results and as per recommendation by all the physicians involved the care of the patient including Cardiology, Gastroenterology, and Surgery. In view of the patient's present medical condition, the patient was cleared from all subspecialty. The patient will be considered for discharge either to TCU if accepted versus home. Dictated and electronically signed, not read. Jack Anderson MD
--- NOTE | 2018-01-08 14:06 | PN ---
DATE: 01/08/2018 SUBJECTIVE: The patient is sitting in chair, comfortable. She had a non bloody bowel movement earlier this morning. She denies any abdominal pain, nausea, or vomiting. OBJECTIVE: VITAL SIGNS: Reveal temperature of 99.3, blood pressure 147/70, heart rate of 79. HEENT: Reveal sclerae to be white. Conjunctivae pink. NECK: Supple. CHEST: Lungs are clear. HEART: Reveals a regular rate and rhythm. ABDOMEN: Soft, nontender. No mass. EXTREMITIES: Show no edema. LABORATORY DATA: Reveals hemoglobin 10.6, this has been stable over the last 72 hours; white blood cell count 7.4; platelet count 193,000. Chemistries reveal blood sugar of 313. BUN 12, creatinine 0.9. IMPRESSION: Lower gastrointestinal bleeding associated with anemia. The patient came in with a hemoglobin of 8.8. Her normal hemoglobin is around 11. She has not had any further bleeding since her hospitalization. RECOMMENDATIONS: The patient will be prepped for colonoscopy for the morning. If the colonoscopy was unrevealing, I will subsequently do an upper endoscopy. Bowel prep has been ordered. Chemo Cleveland MD
--- NOTE | 2018-01-08 19:49 | CON ---
DATE: 01/08/2018 CARDIOLOGY CONSULTATION HISTORY OF PRESENT ILLNESS: The patient is an 87-year-old woman who presented with rectal bleeding. She was found to have a hemoglobin of 8.8. PAST MEDICAL HISTORY: Includes a history of diabetes mellitus, aortic and pulmonary insufficiency which is mild, and hypertension. Echocardiogram reveals LVH, good LV function with mild pulmonary hypertension and mild AI. She denies chest pain, denies shortness of breath. No previous cardiac history is noted. SOCIAL HISTORY The patient does not smoke. REVIEW OF SYSTEMS: A 14-point review of systems is reviewed in detail. No cardiac symptomatology noted. PHYSICAL EXAMINATION: VITAL SIGNS: Blood pressure 147/70, heart rate in the 80s. NECK: Negative JVD. LUNGS: Without rales. HEART: S1, S2. EXTREMITIES: Without edema. EKG shows no acute changes. LABORATORY DATA: Hemoglobin on presentation was 8.8, which is better now at 10.6 after transfusions. BUN and creatinine 12 and 0.9. Glucose 251. IMPRESSION: 1. Gastrointestinal bleed. 2. Hypertension. 3. Left ventricular hypertrophy. 4. Diabetes mellitus. 5. Hypertension. 6. Asymptomatic abdominal aneurysm. 7. Hypercholesterolemia. 8. Obesity. Given these findings, there are no cardiac contraindications for her planned GI workup. After her GI workup is complete as well as documentation of stable hemoglobin, we will do a stress test in preparation for possible aortic aneurysm repair. Binh Bridges MD
[2018-01-09] MEDS: Pantoprazole 40 mg EC Tab PO SCH ×2 (06:36→17:02)
--- NOTE | 2018-01-09 06:43 | CP.PCM.PN ---
Subjective - Date & Time of Evaluation Date of Evaluation: 01/09/18 Time of Evaluation: 06:00 - Subjective Subjective: Patient seen and evaluated bedside. No acute issues overnight. Patient denies blood in stool, abdominal pain, nausea, vomiting, or any other complaints. Patient will have colonoscopy procedure done at noon today. Objective - Vital Signs/Intake and Output Vital Signs (last 24 hours): Temp Pulse Resp BP Pulse Ox 98.7 F 91 H 18 161/92 H 97 01/08/18 14:00 01/08/18 14:00 01/08/18 14:00 01/08/18 14:00 01/08/18 14:00 Intake and Output: 01/08/18 01/09/18 18:59 06:59 Intake Total 450 720 Balance 450 720 - Medications Medications: Current Medications Allopurinol (Zyloprim) 300 mg PO DAILY [facility] Last Admin: 01/08/18 09:53 Dose: 300 mg Amlodipine Besylate (Norvasc) 10 mg PO DAILY [facility] Last Admin: 01/08/18 09:53 Dose: 10 mg Ergocalciferol (Drisdol 50,000 Intl Units Cap) 1 cap PO Q7D [facility] Insulin Human Lispro (Humalog High) 0 units SC AC [facility] PRN Reason: Protocol Last Admin: 01/08/18 17:29 Dose: 7 units Magnesium Oxide (Mag-Ox) 400 mg PO DAILY [facility] Last Admin: 01/08/18 09:57 Dose: 400 mg Pantoprazole Sodium (Protonix Ec Tab) 40 mg PO 0600,1600 [facility] Last Admin: 01/09/18 06:36 Dose: Not Given Quetiapine Fumarate (Seroquel) 300 mg PO [facility] PRN Reason: Protocol Last Admin: 01/08/18 22:55 Dose: 300 mg Senna/Docusate Sodium (Senokot S 50 Mg-8.6 Mg) 2 tab PO BID [facility] Last Admin: 01/08/18 17:29 Dose: 2 tab Ursodiol (Actigall) 300 mg PO BID [facility] Last Admin: 01/08/18 17:29 Dose: 300 mg - Labs Labs: 01/08/18 06:15 01/08/18 06:15 PT 11.4 SECONDS (9.4-12.5) 01/06/18 05:00 INR 0.99 (0.93-1.08) 01/06/18 05:00 APTT 24.0 Seconds (25.1-36.5) L 01/06/18 05:00 - Constitutional Appears: Non-toxic, No Acute Distress - Head Exam Head Exam: NORMAL INSPECTION - Eye Exam Eye Exam: EOMI, Normal appearance - ENT Exam ENT Exam: Mucous Membranes Moist - Respiratory Exam Respiratory Exam: Clear to Ausculation Bilateral, NORMAL BREATHING PATTERN - Cardiovascular Exam Cardiovascular Exam: REGULAR RHYTHM, +S1, +S2 - Neurological Exam Neurological Exam: Alert, Awake, Oriented x3 Assessment and Plan - Assessment and Plan (Free Text) Assessment: 87yo female with history of HTN, HLD, DM type 2 presents c/o hematochezia on admission. Plan: 1. Lower GI bleed secondary to sigmoid diverticulosis and hemorrhoids -Vitals presently within normal limits -Hgb stable -Bleeding scan negative for active bleeding -CT abd/pelvis with PO showed sigmoid diverticulosis, biliary sludge, infrarenal AAA. no surgical intervention as per surgery, monitor 3-6 months with repeat imaging -CLD -GI consulted - Dr. Cleveland, will perform colonoscopy -Surgery consulted, follow recs 2. HTN -Continue home medications including norvasc, hctz, bisoprolol, lisinopril 3. Hyperlipidemia -Continue home atorvastatin 4. DM type 2 -Fingersticks q4h -Sliding scale once patient cleared to eat by GI 5. GI/DVT Prophylaxis -Protonix/SCD's
[2018-01-09 06:49] LABS: BASO # 0.02 K/mm3 (0.0-2.0); BASO % 0.3 % (0.0-3.0); EOS # 0.3 (0.0-0.7); EOS % 4.2 % (1.5-5.0); GRAN # 4.01 (1.4-6.5); GRAN % 57.8 % (50.0-68.0); HEMOGLOBIN 10.3 g/dL (12.0-16.0); LYMPH # 2.1 (1.2-3.4); LYMPH % 30.6 % (22.0-35.0); MEAN CELL VOLUME 85.3 fl (80.0-105.0); MEAN CORPUSCULAR HEMOGLOBIN 26.5 pg (25.0-35.0); MEAN PLATELET VOLUME 10.4 fl (7.0-11.0); MONO # 0.5 (0.1-0.6); MONO % 7.1 % (1.0-6.0); RBC 3.89 10^6/uL (3.5-6.1); RED CELL DISTRIBUTION WIDTH 16.1 % (11.5-14.5); WHITE BLOOD COUNT 6.9 10^3/ul (4.5-11.0)
[2018-01-09 07:10] LABS: ALB/GLOB RATIO 1.2 (1.1-1.8); ALBUMIN 3.1 g/dL (3.0-4.8); ALT/SGPT 38 U/L (7-56); AST/SGOT 35 U/L (14-36); BILIRUBIN,DIRECT 0.3 mg/dL (0.0-0.4); BLOOD UREA NITROGEN 8 mg/dL (7-21); CALCIUM 9.4 mg/dL (8.4-10.5); GFR AFRICAN-AMERICAN > 60; GFR NON-AFRICAN AMERICAN 59
[2018-01-09] MEDS: Insulin Lispro (HUMAlog) HIGH Coverage SC SCH ×3 (11:18→17:00)
[2018-01-09] MEDS ORDERED: Propofol 10 mg/ml Inj (20 ML) ONE (11:56)
--- NOTE | 2018-01-09 12:27 | DS ---
FINAL PROGRESS NOTE & DISCHARGE SUMMARY DATE: 01/09/2018 SUBJECTIVE: The patient is in room 566, bed 1 moved from 567. Overnight nurse's notes were reviewed. No adverse events were documented. The patient is scheduled for colonoscopy today. The patient denies any nausea, vomiting, diarrhea. Denies constipation. Denies hemoptysis. Denies melena. Denies hematochezia. Denies abdominal pain. Denies chest pain. Denies shortness of breath. OBJECTIVE: VITAL SIGNS: In the last 24 hours, T-max 98.7; heart rate 79, 81, 91; blood pressure 147/70, 161/92; respirations 18; O2 sat 97%. HEENT: Head is normocephalic, atraumatic. HEENT examination shows pinkish conjunctivae. Anicteric sclerae. No oropharyngeal lesion. No neck rigidity. CHEST: Kyphosis. LUNGS: Shows no rales, crackles or wheezing. CARDIOVASCULAR: S1, S2. Regular rhythm. Positive systolic murmur, left second intercostal space, right second intercostal space, left sternal border. ABDOMEN: Soft, obese, protuberant. Positive bowel sounds. The patient with hepatosplenomegaly noted. GENITALIA: Female. RECTAL: Deferred. EXTREMITIES: Show no pitting edema. Positive BRANDAN stockings. MUSCULOSKELETAL: Shows an elevated body mass index. NEUROLOGIC: The patient is alert, awake, oriented x3. Cranial nerves II-XII intact. Gait examination is not tested. VASCULAR: Palpable pulses. DIAGNOSTIC DATA: On 01/09, WBC 6.9, hemoglobin and hematocrit 10.3, 33.2; platelets 194. Sodium 143, potassium of 4.2, chloride 106, CO2 31. BUN 8, creatinine 0.9. Glucose 277, calcium 9.4, magnesium 2.2. LFTs are okay. Echocardiogram shows an ejection fraction of 67%. Right ventricular systolic pressure of 54 mmHg with pulmonary hypertension, grade 1 abnormal relaxation pattern. Moderate aortic regurgitation, moderate mitral valve thickening. FINAL IMPRESSION AND PLAN & DISCHARGE DIAGNOSES: 1. Acute blood loss anemia. 2. Lower gastrointestinal bleeding with bright red blood per rectum. 3. Hypertension. 4. Insulin-requiring diabetes mellitus with hyperglycemia. 5. Hypertensive cardiovascular disease. 6. Left ventricular ejection fraction of 67%. 7. Pulmonary hypertension with right ventricular systolic pressure of 54 mmHg. 8. Grade 1 abnormal relaxation pattern. 9. Moderate aortic regurgitation. 10. Moderately thickened mitral valve. 11. Bilateral lower extremity venous stasis (resolved). 12. History of hypertension. 13. History of hyperlipidemia. 14. Morbid obesity with elevated body mass index. 15. Status post packed red blood cell transfusion x2. 16.STATUS POST EGD 17. HIATAL HERNIA 18. GASTRIC ANTRAL NON BLEEDING EROSIVE GASTROPATHY 19.STATUS POST COLONOSCOPY 20.SIGMOID DIVERTICULOSIS 21.FIXED AND ANGULATED SIGMOID COLON. 22. HEMORRHOIDS. 23.GALL BLADDER SLUDGE PLAN: At this time, the patient's colonoscopy results will be reviewed when available. The patient was seen by [facility]. The patient's discharge options are home with [facility]. The patient was not found to be eligible for TCU or subacute rehab. At this time, the patient will be continued on the medications as per the MAR of today, which is reviewed. The patient's colonoscopy details will be reviewed once the patient is stable and the patient's hemodynamic status is stable and as the and as the patient is stable both subjectively and objectively, the patient will be considered for discharge soon. CLEARED FOR DISCHARGE BY GASTROENTEROLOGY MAY DISCHARGE TO TCU IF ACCEPTED OTHER MAY DISCHARGE HOME, REFER TO [facility] PT UPON DISCHARGE DISCHARGE MEDS PER UPDATED AMBULATORY ORDERS AND NEW SCRIPTS NO NO NO DRIVING NO ALCOHOL COPY OF DIET TO PATIENT AND FAMILY UPON DISCHARGE . FOLLOW UP WITHIN 1 WEEK REFER TO [facility] HOME PT UPON DISCHARGE NO NO NO DRIVING Follow up with lieutenant general outpatient Follow up with [employer] ground operations supervisor as outpatient as scheduled. NO ALCOHOL COPY OF DIET TO PATIENT AND FAMILY UPON DISCHARGE . FOLLOW UP WITHIN 1 WEEK Dictated and electronically signed, not read. Jack Anderson MD [facility]
[2018-01-09] MEDS ORDERED: Phenylephrine 10 mg/ml Inj ONE (12:36)
[2018-01-09] MEDS ORDERED: Sodium Chloride 0.9% 1,000 ML IV SCH (13:00)
[2018-01-09 13:05] LABS: GLYCOMARK(R) 11.6 mcg/mL (7.5-28.4)
[2018-01-09] MEDS ORDERED: Insulin Regular 100 units/ml ONE (13:08)
[2018-01-09] MEDS: Magnesium Oxide 400 mg Tab UD PO SCH (14:27)
[2018-01-09] MEDS: Docusate-Senna 50 mg-8.6 mg Tab PO SCH ×2 (14:27→17:01)
[2018-01-09 14:41] VITALS: BP 156/83
[2018-01-09 15:04] VITALS: PULSE 96; RESP 18; TEMP 98.7; O2SAT 96
== END 2018-01-09 19:47 | disposition home or self-care (01) | DRG 378 ==
LOC: ED 10:01 → ERH 15:38 → ICU 18:19 → 5RNO 01-06 10:59
PROVIDERS: ADMIT Internal Medicine; ATTEND Internal Medicine
PROC: 30233N1 Transfusion of Nonautologous Red Blood Cells into Peripheral Vein, Percutaneous Approach (ICD-10-PCS; 2018-01-05)
PROC: 0DB68ZX Excision of Stomach, Via Natural or Artificial Opening Endoscopic, Diagnostic (ICD-10-PCS; principal; 2018-01-09 12:15)
PROC: 0DJD8ZZ Inspection of Lower Intestinal Tract, Via Natural or Artificial Opening Endoscopic (ICD-10-PCS; 2018-01-09 12:15)
DX: K57.31 Diverticulosis of large intestine without perforation or abscess with bleeding (principal); D62 Acute posthemorrhagic anemia; N17.9 Acute kidney failure, unspecified; E44.1 Mild protein-calorie malnutrition; E11.65 Type 2 diabetes mellitus with hyperglycemia; I13.10 Hypertensive heart and chronic kidney disease without heart failure, with stage 1 through stage 4 chronic kidney disease, or unspecified chronic kidney disease; N18.3 Chronic kidney disease, stage 3 (moderate); I27.20 Pulmonary hypertension, unspecified; K29.50 Unspecified chronic gastritis without bleeding; K31.9 Disease of stomach and duodenum, unspecified; K44.9 Diaphragmatic hernia without obstruction or gangrene; K64.9 Unspecified hemorrhoids; I87.8 Other specified disorders of veins; I35.1 Nonrheumatic aortic (valve) insufficiency; M48.061 Spinal stenosis, lumbar region without neurogenic claudication; M50.30 Other cervical disc degeneration, unspecified cervical region; M51.36 Other intervertebral disc degeneration, lumbar region; E78.5 Hyperlipidemia, unspecified; M47.26 Other spondylosis with radiculopathy, lumbar region; E11.40 Type 2 diabetes mellitus with diabetic neuropathy, unspecified; E11.22 Type 2 diabetes mellitus with diabetic chronic kidney disease; E55.9 Vitamin D deficiency, unspecified; E79.0 Hyperuricemia without signs of inflammatory arthritis and tophaceous disease; I71.4 Abdominal aortic aneurysm, without rupture; M43.16 Spondylolisthesis, lumbar region; E83.42 Hypomagnesemia; J98.4 Other disorders of lung; R26.9 Unspecified abnormalities of gait and mobility; E78.00 Pure hypercholesterolemia, unspecified; E66.01 Morbid (severe) obesity due to excess calories; Z87.891 Personal history of nicotine dependence; Z68.38 Body mass index [BMI] 38.0-38.9, adult; Z79.4 Long term (current) use of insulin

== ENCOUNTER 2018-03-23 16:07 | Inpatient (IN) | payer MEDICARE, OTHER ==
[2018-03-23 16:25] VITALS: BMI 34.6
--- NOTE | 2018-03-23 16:50 | ED PDOC ---
Arrival/HPI - General Chief Complaint: GI Problem Time Seen by Provider: 03/23/18 16:27 Historian: Patient - History of Present Illness Narrative History of Present Illness (Text): 03/23/18 17:06 A 87 year old female, whose past medical history includes CAD, IBS, diabetes, constipation, hypertension, and hyperlipidemia, presents to the emergency department complaining of black tarry bowel movement this morning. Patient reports she was told by PMD if she has black stool to visit the ER immediately. Patient notes also experiencing epigastric discomfort intermittently, but denies any chest pain, shortness of breath, nausea, vomiting, or any other complaints at this time. PMD: Dr. Jack Anderson Past Medical History - Provider Review Nursing Documentation Reviewed: Yes - Cardiac Hx Cardiac Disorders: Yes Hx Hypertension: Yes Hx Pacemaker: No - Pulmonary Hx Respiratory Disorders: No - Neurological Hx Neurological Disorder: No - HEENT Hx HEENT Disorder: No - Renal Hx Renal Disorder: No - Endocrine/Metabolic Hx Endocrine Disorders: Yes Hx Diabetes Mellitus Type 2: Yes - Hematological/Oncological Hx Blood Disorders: Yes Hx Blood Transfusions: Yes Hx Blood Transfusion Reaction: No - Integumentary Hx Dermatological Disorder: No - Musculoskeletal/Rheumatological Hx Musculoskeletal Disorders: Yes Hx Falls: Yes - Gastrointestinal Hx Gastrointestinal Disorders: No - Genitourinary/Gynecological Hx Genitourinary Disorders: No - Psychiatric Hx Psychophysiologic Disorder: No Hx Emotional Abuse: No Hx Physical Abuse: No Hx Substance Use: No - Surgical History Hx Cardiac Catheterization: Yes (1 stent 02/07/18) Hx Hysterectomy: Yes (1967) - Anesthesia Hx Anesthesia: Yes Hx Anesthesia Reactions: No Hx Malignant Hyperthermia: No - Suicidal Assessment Feels Threatened In Home Enviroment: No Family/Social History - Physician Review Nursing Documentation Reviewed: Yes Family/Social History: No Known Family HX Smoking Status: Former Smoker Hx Alcohol Use: No Hx Substance Use: No Allergies/Home Meds Allergies/Adverse Reactions: Allergies No Known Allergies Allergy (Verified 01/05/18 10:11) Home Medications: Home Meds Medication Instructions Recorded Confirmed Ergocalciferol (Vitamin D2) 50,000 units PO Q7D 01/05/18 02/05/18 [Vitamin D2] Magnesium Oxide [Magnesium] 1 tab PO DAILY 01/05/18 03/23/18 DULoxetine [Cymbalta] 60 mg PO DAILY 02/02/18 02/07/18 Insulin Aspart Prot/Insuln Asp 25 units SC ACD 02/02/18 03/23/18 [Novolog Mix 70-30 Vial] Levocetirizine Dihydrochloride 5 mg PO DAILY 02/02/18 03/23/18 Omeprazole 20 mg PO DAILY 02/02/18 03/23/18 QUEtiapine [SEROquel] 300 mg PO HS 02/02/18 03/23/18 Cyproheptadine [Periactin] 4 mg PO DAILY 03/23/18 03/23/18 Insulin Human (NPH)/Regular 10 unit SC 03/23/18 [Novolin 70/30 (70/30 units/ml) 10 ml] Insulin Human (NPH)/Regular 25 unit SC BRK 03/23/18 03/23/18 [Novolin 70/30 (70/30 units/ml) 10 ml] Insulin Human (NPH)/Regular 30 unit SC DIN 03/23/18 03/23/18 [Novolin 70/30 (70/30 units/ml) 10 ml] Linaclotide [Linzess] 72 mcg PO DAILY 03/23/18 03/23/18 hydrALAZINE [Apresoline] 10 mg PO BID 03/23/18 03/23/18 Review of Systems - Physician Review All systems were reviewed & negative as marked: Yes - Review of Systems Respiratory: absent: SOB Cardiovascular: absent: Chest Pain Gastrointestinal: Abdominal Pain (epigastric discomfort), Stool Changes (loost stool, black tarry bowel stool). absent: Nausea, Vomiting Physical Exam Vital Signs Reviewed: Yes Vital Signs Temp Pulse Resp BP Pulse Ox 03/23/18 20:35 98.1 F 94 H 17 124/70 96 03/23/18 19:24 98.3 F 92 H 17 123/61 95 03/23/18 16:21 99.2 F 97 H 18 119/72 98 Temperature: Afebrile Blood Pressure: Normal Pulse: Regular Respiratory Rate: Normal Appearance: Positive for: Well-Appearing, Non-Toxic, Comfortable Pain Distress: None Mental Status: Positive for: Alert and Oriented X 3 Finger Stick Blood Glucose: 146 - Systems Exam Head: Present: Atraumatic, Normocephalic Pupils: Present: PERRL Extroacular Muscles: Present: EOMI Conjunctiva: Present: Normal Mouth: Present: Moist Mucous Membranes Neck: Present: Normal Range of Motion Respiratory/Chest: Present: Clear to Auscultation, Good Air Exchange. No: Respiratory Distress, Accessory Muscle Use Cardiovascular: Present: Regular Rate and Rhythm, Normal S1, S2. No: Murmurs Abdomen: No: Tenderness, Distention, Peritoneal Signs Rectal: Present: Gross Blood Back: Present: Normal Inspection Upper Extremity: Present: Normal Inspection. No: Cyanosis, Edema Lower Extremity: Present: Normal Inspection. No: Edema Neurological: Present: GCS=15, CN II-XII Intact, Speech Normal Skin: Present: Warm, Dry, Normal Color. No: Rashes Psychiatric: Present: Alert, Oriented x 3, Normal Insight, Normal Concentration Medical Decision Making ED Course and Treatment: 03/23/18 17:12 Impression: 87 year old female with black tarry stool. Differential Diagnosis included but are not limited to: GI Bleed Plan: -- EKG -- Chest X-ray -- Labs -- Protonix -- Reassess and disposition Prior Visits: Notes and results from previous visits were reviewed. Patient was last seen in the emergency department on 01/05/2018 for rectal bleeding. Patient was admitted to the hospital to ICU for GI bleed and anemia. Progress Notes: EKG: Ordered, reviewed, and independently interpreted the EKG. Rate : 92 BPM Rhythm : NSR Interpretation : No ST-segment elevations or depressions, no T-wave inversions, normal intervals. Comparison : No previous EKG for comparison. 03/23/2018 17:40 Chest X-ray FINDINGS: LUNGS: Hazy opacity in the lung bases. Linear opacities overlying the projection of the right mid lung. PLEURA: No pneumothorax or pleural fluid seen.Biapical pleural parenchymal thickening noted. CARDIOVASCULAR: Enlarged cardiomediastinal silhouette essentially unchanged given differences in technique. OSSEOUS STRUCTURES: Degenerative changes. VISUALIZED UPPER ABDOMEN: Suboptimally seen. OTHER FINDINGS: None. IMPRESSION: Findings as above. Dictator: Zarina Byrd MD 03/23/2018 18:45 Abd/Pelvis CT IMPRESSION: Mild inflammatory changes surrounding the pancreas suggestive of pancreatitis. Correlation amylase and lipase levels recommended. No focal fluid collection. Irregular calcifications/enhancement surrounding the right common femoral artery. Underlying hematoma/pseudoaneurysm cannot be entirely excluded. Ultrasound evaluation recommended of the right common femoral artery. No bowel obstruction. Moderate size hiatal hernia. Diverticulosis involving the sigmoid colon without evidence of acute diverticulitis. There is sludge in the gallbladder. No CT evidence of acute cholecystitis. 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 Comparison is suboptimal given lack of intravenous contrast in the prior CT. Intravenous contrast enhanced CT not available for direct comparison of the aneurysm sizes. Recommend follow-up. Dictator: Zarina Byrd MD 03/23/18 19:41 Glucose is 40. Ordering patient to be given 1 amp of d50. - Lab Interpretations Lab Results: 03/23/18 17:10 03/23/18 17:10 Lab Results 03/23/18 17:10: Blood Type O POSITIVE, Antibody Screen Negative, BBK History Checked Patient has bt 03/23/18 17:10: Sodium 143, Potassium 3.2 L, Chloride 103, Carbon Dioxide 28, Anion Gap 14, BUN 17, Creatinine 1.2, Est GFR ( Amer) 51, Est GFR (Non- Af Amer) 42, Random Glucose 83, Calcium 10.3, Total Bilirubin 0.3, AST 46 H, ALT 30, Alkaline Phosphatase 99, Lactate Dehydrogenase 289 L, Total Creatine Kinase 279 H, CK-MB (CK-2) 1.9, CK-MB (CK-2) % Cancelled, Troponin I 0.02 D, Total Protein 7.2, Albumin 3.9, Globulin 3.3, Albumin/Globulin Ratio 1.2, Amylase 156 H, Lipase 719 H 03/23/18 17:10: PT 10.9, INR 0.96, APTT 28.1 03/23/18 17:10: WBC 6.7, RBC 4.14, Hgb 11.2 L, Hct 34.4 L, MCV 83.1, MCH 27.1, MCHC 32.6, RDW 15.8 H, Plt Count 292, MPV 9.9, Gran % 59.5, Lymph % (Auto) 30.1 , [place] % (Auto) 6.7 H, Eos % (Auto) 3.4, Baso % (Auto) 0.3, Gran # 3.97, Lymph # (Auto) 2.0, [place] # (Auto) 0.5, Eos # (Auto) 0.2, Baso # (Auto) 0.02 07/20/18 16:20: POC Glucose (mg/dL) 146 H I have reviewed the lab results: Yes - RAD Interpretation Radiology Orders: 03/23/18 17:09 CHEST PORTABLE [RAD] Stat 03/23/18 17:45 ABD & PELVIS IV CONTRAST ONLY [CT] Stat - Medication Orders Current Medication Orders: Allopurinol (Zyloprim) 300 mg PO DAILY [facility] Aspirin (Ecotrin) 81 mg PO DAILY [facility] Atorvastatin Calcium (Lipitor) 40 mg PO DIN [facility] Clopidogrel Bisulfate (Plavix) 75 mg PO DAILY [facility] Cyproheptadine HCl (Periactin) 4 mg PO DAILY [facility] Duloxetine HCl (Cymbalta) 60 mg PO DAILY [facility] Hydralazine HCl (Apresoline) 10 mg PO BID [facility] Hydrochlorothiazide (Microzide) 12.5 mg PO DAILY [facility] Sodium Chloride (Sodium Chloride 0.45%) 1,000 mls @ 80 mls/hr IV .[id number] [facility] Last Admin: 03/23/18 19:49 Dose: 80 mls/hr eMAR Start Stop Document 03/23/18 19:49 SF (Rec: 03/23/18 19:50 SF [email or web address] Intravenous Solution Start Date 03/23/18 Start Time 19:50 Insulin Human Regular (Humulin R Low) 0 units SC Q6H [facility] PRN Reason: Protocol Last Admin: 03/23/18 19:47 Dose: Not Given Non-Admin Reason: Blood Sugar Parameter MAR Blood Glucose Document 03/23/18 19:47 SF (Rec: 03/23/18 19:47 SF [email or web address] Blood Glucose Finger Stick Blood Glucose (70-120) 42 Lisinopril (Zestril) 20 mg PO BID [facility] Loratadine (Claritin) 10 mg PO DAILY [facility] Pantoprazole Sodium (Protonix Inj) 40 mg IVP DAILY [facility] Quetiapine Fumarate (Seroquel) 300 mg PO HS [facility] PRN Reason: Protocol Last Admin: 03/23/18 21:08 Dose: 300 mg Behavioural Document 03/23/18 21:08 RS (Rec: 03/23/18 21:08 RS [id number] Maintenance Maintenance Dose Yes Behavior Behavior for Medication: Insomnia Senna/Docusate Sodium (Senokot S 50 Mg-8.6 Mg) 2 tab PO BID MOJ[facility] Discontinued Medications Dextrose (Dextrose 50% Inj) 50 ml IVP STAT STA Stop: 03/23/18 19:57 Last Admin: 03/23/18 19:58 Dose: Pantoprazole Sodium (Protonix Inj) 80 mg IVP STAT STA Stop: 03/23/18 17:10 Last Admin: 03/23/18 17:40 Dose: 80 mg IVP Administration Document 03/23/18 17:40 SF (Rec: 03/23/18 18:03 SF [email or web address] Charges for Administration # of IVP Administrations 1 Potassium Chloride (K-Dur 20 Meq Er Tab) 40 meq PO STAT STA Stop: 03/23/18 19:25 Last Admin: 03/23/18 19:48 Dose: 40 meq - Scribe Statement The provider has reviewed the documentation as recorded by the Corey Aiken Provider Scribe Attestation: All medical record entries made by the Scribe were at my direction and personally dictated by me. I have reviewed the chart and agree that the record accurately reflects my personal performance of the history, physical exam, medical decision making, and the department course for this patient. I have also personally directed, reviewed, and agree with the discharge instructions and disposition. Disposition/Present on Arrival - Present on Arrival Any Indicators Present on Arrival: No History of DVT/PE: No History of Uncontrolled Diabetes: Yes Urinary Catheter: No History of Decub. Ulcer: No History Surgical Site Infection Following: None - Disposition Have Diagnosis and Disposition been Completed?: Yes Diagnosis: GI bleed Disposition: HOSPITALIZED Disposition Time: 18:45 Patient Plan: Admission Patient Problems: Current Active Problems Problem Status Onset GI bleed Acute Condition: GOOD
[2018-03-23 17:21] LABS: BASO # 0.02 K/mm3 (0.0-2.0); BASO % 0.3 % (0.0-3.0); EOS # 0.2 (0.0-0.7); EOS % 3.4 % (1.5-5.0); GRAN # 3.97 (1.4-6.5); GRAN % 59.5 % (50.0-68.0); HEMOGLOBIN 11.2 g/dL (12.0-16.0); LYMPH % 30.1 % (22.0-35.0); MEAN CELL VOLUME 83.1 fl (80.0-105.0); MEAN CORPUSCULAR HEMOGLOBIN 27.1 pg (25.0-35.0); MEAN CORPUSCULAR HGB CONC 32.6 g/dl (31.0-37.0); MEAN PLATELET VOLUME 9.9 fl (7.0-11.0); MONO # 0.5 (0.1-0.6); MONO % 6.7 % (1.0-6.0); RBC 4.14 10^6/uL (3.5-6.1); RED CELL DISTRIBUTION WIDTH 15.8 % (11.5-14.5); WHITE BLOOD COUNT 6.7 10^3/ul (4.5-11.0)
[2018-03-23 17:39] LABS: ALB/GLOB RATIO 1.2 (1.1-1.8); ALBUMIN 3.9 g/dL (3.0-4.8); CALCIUM 10.3 mg/dL (8.4-10.5)
--- NOTE | 2018-03-23 17:42 | RAD ---
Date of service: 03/23/2018 PROCEDURE: CHEST RADIOGRAPH, 1 VIEW HISTORY: gi bleed COMPARISON: 01/05/2018 FINDINGS: LUNGS: Hazy opacity in the lung bases. Linear opacities overlying the projection of the right mid lung. PLEURA: No pneumothorax or pleural fluid seen.Biapical pleural parenchymal thickening noted. CARDIOVASCULAR: Enlarged cardiomediastinal silhouette essentially unchanged given differences in technique. OSSEOUS STRUCTURES: Degenerative changes. VISUALIZED UPPER ABDOMEN: Suboptimally seen. OTHER FINDINGS: None. IMPRESSION: Findings as above.
[2018-03-23 17:44] LABS: INR 0.96 (0.93-1.08); PARTIAL THROMBOPLASTIN TIME 28.1 Seconds (25.1-36.5); PROTHROMBIN TIME 10.9 SECONDS (9.4-12.5)
[2018-03-23 17:50] LABS: TROPONIN I 0.02 ng/mL
[2018-03-23] MEDS ORDERED: Iohexol 350 MG/100 ML VIAL ONE (17:50)
[2018-03-23 17:58] LABS: CK-MB 1.9 ng/mL (0.0-3.6)
--- NOTE | 2018-03-23 18:46 | CT ---
Date of service: 03/23/2018 PROCEDURE: CT Abdomen and Pelvis with intravenous contrast. HISTORY: upper gi bleed and pancreatitis COMPARISON: CT from 02/06/2018. TECHNIQUE: Contiguous axial images of the abdomen and pelvis. Intravenous contrast was administered. No oral contrast given. Coronal and Sagittal reformats generated. Limited evaluation of the bowel due to lack of oral contrast. Intravenous contrast: 100 mL of Omnipaque 350 Radiation dose: Total exam DLP = 902.49 mGy-cm. This CT exam was performed using one or more of the following dose reduction techniques: Automated exposure control, adjustment of the mA and/or kV according to patient size, and/or use of iterative reconstruction technique. FINDINGS: LOWER THORAX: Bibasilar atelectatic changes. Minimal scarring. Visualized portions of the heart demonstrates no significant pericardial effusion. Coronary artery calcifications. LIVER: Unremarkable. No gross lesion or ductal dilatation. Punctate calcification near the liver dome. GALLBLADDER AND BILE DUCTS: Layering sludge in the gallbladder. No biliary ductal dilatation. PANCREAS: Mild peripancreatic inflammation. SPLEEN: Unremarkable. No splenomegaly. ADRENALS: Minimal nodular thickening of both adrenal glands, stable. KIDNEYS AND URETERS: Relatively unremarkable and enhancement. Sub centimeter hypodensities, likely cysts. Follow-up can be obtained with ultrasound. BLADDER: Collapsed urinary bladder limiting evaluation. REPRODUCTIVE: Please note that evaluation of gynecologic organs is not optimal on CT imaging. No suspicious adnexal masses identified. Uterus not seen. APPENDIX: Unremarkable. BOWEL: No bowel obstruction. Moderate size hiatal hernia. Extensive diverticulosis in the sigmoid colon. No definite evidence of acute diverticulitis. Liquid stool throughout the colon suggestive of diarrhea. PERITONEUM: Unremarkable. No fluid collection. No free air. LYMPH NODES: Unremarkable. No enlarged lymph nodes. VASCULATURE: Multifocal areas of aneurysmal dilatation involving the descending aorta associated with irregular calcified and noncalcified plaque. Focal area of outpouching involving the thoracic aorta noted. The largest dimension of the thoracic aorta is approximately 3.9 centimeters. Infrarenal partially thrombosed aneurysm noted and appears to be essentially unchanged in size however, this is suboptimally evaluated due to comparison to noncontrast study from 02/06/2018. No prior contrast enhanced study available for direct comparison of the aneurysm size cysts. Extensive calcific plaque in the iliac arteries. Irregular calcifications/enhancement surrounding the right common femoral artery. Surrounding area of in the radiation/soft tissue stranding noted. This was also noted in the prior CT from 02/06/2018. Visualized portion of the proximal superficial femoral artery on the right appears patent. BONES: Extensive osteopenia. Lucency in the left iliac bone could be related to osteopenia. However, underlying pathology cannot be entirely excluded. Degenerative changes involving both hips. Extensive degenerative changes of the lower lumbar spine. Grade 1 anterolisthesis of L4 over L5. OTHER FINDINGS: Punctate calcifications in the left breast. IMPRESSION: Mild inflammatory changes surrounding the pancreas suggestive of pancreatitis. Correlation amylase and lipase levels recommended. No focal fluid collection. Irregular calcifications/enhancement surrounding the right common femoral artery. Underlying hematoma/pseudoaneurysm cannot be entirely excluded. Ultrasound evaluation recommended of the right common femoral artery. No bowel obstruction. Moderate size hiatal hernia. Diverticulosis involving the sigmoid colon without evidence of acute diverticulitis. There is sludge in the gallbladder. No CT evidence of acute cholecystitis. 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 Comparison is suboptimal given lack of intravenous contrast in the prior CT. Intravenous contrast enhanced CT not available for direct comparison of the aneurysm sizes. Recommend follow-up.
--- NOTE | 2018-03-23 19:12 | CP.PCM.HP ---
History of Present Illness - History of Present Illness History of Present Illness: 87 year old female with history of diabetes, hypertension, irritable bowel syndrome, hyperlipidemia, and coronary artery disease s/p stent presented to the Emergency Room with black tarry stool. Patient also complains of intermittent epigastric chest pain. She denies shortness of breath, nausea, or vomiting. Present on Admission - Present on Admission Any Indicators Present on Admission: No History of DVT/PE: No History of Uncontrolled Diabetes: No Urinary Catheter: No Decubitus Ulcer Present: No Review of Systems - Constitutional Constitutional: absent: Chills, Excessive Sweating, Fever - Cardiovascular Cardiovascular: absent: Chest Pain, Chest Pain with Activity, Dyspnea - Respiratory Respiratory: absent: Cough, Dyspnea, Wheezing - Gastrointestinal Gastrointestinal: As Per HPI Past Patient History - Past Medical History & Family History Past Medical History?: Yes - Past Social History Smoking Status: Former Smoker - CARDIAC Hx Cardiac Disorders: Yes Hx Hypercholesterolemia: Yes Hx Hypertension: Yes Hx Pacemaker: No - PULMONARY Hx Respiratory Disorders: No - NEUROLOGICAL Hx Neurological Disorder: No - HEENT Hx HEENT Problems: No - RENAL Hx Chronic Kidney Disease: No - ENDOCRINE/METABOLIC Hx Endocrine Disorders: Yes Hx Diabetes Mellitus Type 2: Yes - HEMATOLOGICAL/ONCOLOGICAL Hx Blood Disorders: Yes Hx Blood Transfusions: Yes Hx Blood Transfusion Reaction: No - INTEGUMENTARY Hx Dermatological Problems: No - MUSCULOSKELETAL/RHEUMATOLOGICAL Hx Musculoskeletal Disorders: Yes Hx Falls: Yes - GASTROINTESTINAL Hx Gastrointestinal Disorders: No - GENITOURINARY/GYNECOLOGICAL Hx Genitourinary Disorders: No - PSYCHIATRIC Hx Psychophysiologic Disorder: No Hx Emotional Abuse: No Hx Physical Abuse: No Hx Substance Use: No - SURGICAL HISTORY Hx Cardiac Catheterization: Yes (1 stent 02/07/18) Hx Hysterectomy: Yes (1967) - ANESTHESIA Hx Anesthesia: Yes Hx Anesthesia Reactions: No Hx Malignant Hyperthermia: No Meds Allergies/Adverse Reactions: Allergies Allergy/AdvReac Type Severity Reaction Status Date / Time No Known Allergies Allergy Verified 01/05/18 10:11 Physical Exam - Constitutional Appears: No Acute Distress - Head Exam Head Exam: ATRAUMATIC, NORMOCEPHALIC - Respiratory Exam Respiratory Exam: Clear to Auscultation Bilateral, NORMAL BREATHING PATTERN - Cardiovascular Exam Cardiovascular Exam: REGULAR RHYTHM, +S1, +S2 - GI/Abdominal Exam GI & Abdominal Exam: Normal Bowel Sounds, Soft - Extremities Exam Extremities exam: Positive for: normal inspection Results - Vital Signs Recent Vital Signs: Last Vital Signs Temp 99.2 F 03/23/18 16:21 Pulse 97 H 03/23/18 16:21 Resp 18 03/23/18 16:21 BP 119/72 03/23/18 16:21 Pulse Ox 98 03/23/18 16:21 - Labs Result Diagrams: 03/23/18 17:10 03/23/18 17:10 Assessment & Plan - Assessment and Plan (Free Text) Assessment: Acute Pancreatitis - Patient will be kept NPO, started on IV fluids. - GI, Dr. Cleveland, will be consulted - repeat amylase and lipase GI Bleed - Type and cross - IV Protonix - GI consult - monitor H&H - Patient has had EGD and colonoscopy on 01/09/18. EGD showed gastric antrum erosion. Hemorrhoids and diverticula of the sigmoid colon were seen on colonoscopy. Diabetes mellitus II - accuchecks with SS coverage as patient is NPO HTN - continue Hydralazine, HCTZ and Zestril CAD s/p stent - continue ASA, Plavix - consult Dr. Bridges, public service representative HLP - continue Lipitor Irregular calcification/enhancement surrounding Right common femoral artery seen on CT - check arterial doppler right lower extremity to rule out pseudoaneurysm/ hematoma
[2018-03-23] MEDS ORDERED: Potassium Chloride 20 mEq ER Tab PO STA (19:24)
[2018-03-23] MEDS ORDERED: Dextrose 50% SYRINGE Inj (50 ml) ONE (19:33)
[2018-03-23] MEDS: Insulin Reg-LOW-Coverage SC SCH (19:47)
[2018-03-23] MEDS: Sodium Chloride 0.45% 1,000 ML IV SCH (19:49)
[2018-03-23] MEDS ORDERED: Dextrose 50% SYRINGE Inj (50 ml) IVP STA (19:56)
[2018-03-24] MEDS: Insulin Reg-LOW-Coverage SC SCH ×4 (01:58→18:30)
[2018-03-24 08:02] LABS: BASO # 0.03 K/mm3 (0.0-2.0); BASO % 0.5 % (0.0-3.0); EOS # 0.3 (0.0-0.7); EOS % 4.8 % (1.5-5.0); GRAN # 3.4 (1.4-6.5); GRAN % 57.8 % (50.0-68.0); LYMPH # 1.7 (1.2-3.4); LYMPH % 28.9 % (22.0-35.0); MEAN CELL VOLUME 83.6 fl (80.0-105.0); MEAN CORPUSCULAR HEMOGLOBIN 26.4 pg (25.0-35.0); MEAN CORPUSCULAR HGB CONC 31.5 g/dl (31.0-37.0); MEAN PLATELET VOLUME 10.6 fl (7.0-11.0); MONO # 0.5 (0.1-0.6); RBC 3.79 10^6/uL (3.5-6.1); RED CELL DISTRIBUTION WIDTH 16.2 % (11.5-14.5); WHITE BLOOD COUNT 5.9 10^3/ul (4.5-11.0)
[2018-03-24 08:10] LABS: ALB/GLOB RATIO 1.1 (1.1-1.8); ALBUMIN 3.2 g/dL (3.0-4.8); ALT/SGPT 29 U/L (7-56); AMYLASE 119 U/L (35-125); AST/SGOT 32 U/L (14-36); BLOOD UREA NITROGEN 13 mg/dL (7-21); CALCIUM 9.5 mg/dL (8.4-10.5); GFR AFRICAN-AMERICAN > 60; GFR NON-AFRICAN AMERICAN 52; LIPASE 631 U/L (23-300)
--- NOTE | 2018-03-24 09:19 | CP.PCM.PN ---
Subjective - Date & Time of Evaluation Date of Evaluation: 03/24/18 Time of Evaluation: 08:30 - Subjective Subjective: (covering for Dr. Anderson) Patient is seen this morning in room 362 bed 1. She is complaining of pain, which she says is severe at times. Objective - Vital Signs/Intake and Output Vital Signs (last 24 hours): Temp Pulse Resp BP Pulse Ox 98.2 F 100 H 20 113/72 96 03/24/18 06:00 03/24/18 06:00 03/24/18 06:00 03/24/18 06:00 03/24/18 06:00 Intake and Output: 03/24/18 03/24/18 06:59 18:59 Intake Total 120 Balance 120 - Medications Medications: Current Medications Allopurinol (Zyloprim) 300 mg PO DAILY MOJGAN Aspirin (Ecotrin) 81 mg PO DAILY MOJGAN Atorvastatin Calcium (Lipitor) 40 mg PO DIN MOJGAN Clopidogrel Bisulfate (Plavix) 75 mg PO DAILY MOJGAN Cyproheptadine HCl (Periactin) 4 mg PO DAILY MOJGAN Duloxetine HCl (Cymbalta) 60 mg PO DAILY MOJGAN Hydralazine HCl (Apresoline) 10 mg PO BID MOJGAN Hydrochlorothiazide (Microzide) 12.5 mg PO DAILY [facility] Sodium Chloride (Sodium Chloride 0.45%) 1,000 mls @ 80 mls/hr IV .[id number] [facility] Last Admin: 03/23/18 19:49 Dose: 80 mls/hr Insulin Human Regular (Humulin R Low) 0 units SC Q6H MOJGAN PRN Reason: Protocol Last Admin: 03/24/18 08:39 Dose: Not Given Lisinopril (Zestril) 20 mg PO BID MOJGAN Loratadine (Claritin) 10 mg PO DAILY MOJGAN Pantoprazole Sodium (Protonix Inj) 40 mg IVP DAILY MOJGAN Quetiapine Fumarate (Seroquel) 300 mg PO HS MOJGAN PRN Reason: Protocol Last Admin: 03/23/18 21:08 Dose: 300 mg Senna/Docusate Sodium (Senokot S 50 Mg-8.6 Mg) 2 tab PO BID MOJGAN - Labs Labs: 03/24/18 07:00 03/24/18 07:00 PT 10.9 SECONDS (9.4-12.5) 03/23/18 17:10 INR 0.96 (0.93-1.08) 03/23/18 17:10 APTT 28.1 Seconds (25.1-36.5) 03/23/18 17:10 - Constitutional Appears: No Acute Distress - Head Exam Head Exam: ATRAUMATIC, NORMOCEPHALIC - Respiratory Exam Respiratory Exam: Clear to Ausculation Bilateral, NORMAL BREATHING PATTERN - Cardiovascular Exam Cardiovascular Exam: REGULAR RHYTHM, +S1, +S2 - GI/Abdominal Exam GI & Abdominal Exam: Soft, Normal Bowel Sounds - Neurological Exam Neurological Exam: Alert, Awake, Oriented x3 Assessment and Plan - Assessment and Plan (Free Text) Assessment: 87 year old female with history of hypertension, diabetes, anemia, and hyperlipidemia now admitted with acute pancreatitis. Plan: Acute Pancreatitis - continue IV fluids, NPO - awaiting GI consult - Patient complaining of pain; will order Morphine as needed for pain GI Bleed - Patient with recent EGD and colonoscopy which showed gastric ulcer, diverticula and hemorrhoids. - continue to monitor hemoglobin HTN - continue hydralazine, and zestril CAD s/p stent - continue ASA - continue Plavix as per cardiology - Cardiology consult pending calcification/enhancement seen on CT of Right femoral artery - arterial doppler pending Diabetes mellitus II - continue accuchecks with sliding scale coverage
[2018-03-24] MEDS: Docusate-Senna 50 mg-8.6 mg Tab PO SCH ×2 (10:01→17:12)
[2018-03-24] MEDS: Morphine 2 mg/ml ISec IVP PRN ×2 (10:19→17:32)
--- NOTE | 2018-03-24 12:16 | CARD ---
APPROVED REPORT Date of service: 03/23/2018 EKG Measurement Heart [id number] <Conclusion> Sinus rhythm with premature atrial complexes Nonspecific T wave abnormality Abnormal ECG
[2018-03-24] MEDS: Sodium Chloride 0.45% 1,000 ML IV SCH (17:15)
[2018-03-25] MEDS: Insulin Reg-LOW-Coverage SC SCH ×4 (02:30→21:42)
--- NOTE | 2018-03-25 02:36 | CON ---
DATE: 03/24/[address] Chemo Cleveland. HISTORY OF PRESENT ILLNESS: This patient was seen and evaluated earlier today. This 87-year-old patient with past medical history of diabetes mellitus, hypertension, dyslipidemia, coronary artery disease status post bare metal stent placement on 02/05/[address] Bridges, admitted with episodes of dark tarry stool and also having epigastric discomfort. No history of vomiting blood. No history of bright red blood per rectum. The patient had a colonoscopy done 01/09/[address] Chemo Cleveland found to have a diverticulosis in the sigmoid colon and hemorrhoids. The patient did have an upper GI endoscopy at the same time found to have a small hiatal hernia and antral erosion. Doing well until this recent episode. PAST MEDICAL HISTORY: Other past medical history is significant as above. PAST SURGICAL HISTORY: Positive for a hysterectomy. ALLERGIES: NO KNOWN DRUG ALLERGIES. FAMILY HISTORY: Noncontributory. PHYSICAL EXAMINATION GENERAL: The patient is seen lying in the bed, not in acute distress. VITAL SIGNS: Pulse 95 per minute, blood pressure is 160/76, temperature is 98.2, O2 saturation 97. HEENT: Atraumatic, anicteric. NECK: Supple. HEART: S1 and S2 heard. LUNGS: Bilateral air entry present. ABDOMEN: Soft. There is mild tenderness in the epigastric area. EXTREMITIES: No cyanosis. No clubbing. NEUROLOGICAL: Alert, oriented. Moves all the extremities. LABORATORY DATA: Hemoglobin 10, hematocrit 31.7, WBC 5.9 and platelets 253. Chemistry is essentially unremarkable and the patient did have mildly elevated amylase and lipase level, on admission amylase was 156 and it is came down to 119 and lipase 719, is mildly elevated and it is came down to 631. The patient had a CT scan of the abdomen and pelvis which is reviewed. It was reported as mildly inflammative changes around the pancreas. 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 IMPRESSION: 1. Gastrointestinal bleeding. The patient has melanotic dark stool. There was a mild drop in hemoglobin, it came down from 11.2 on admission to 10. The patient's baseline is around 10. Does have a normal MCV, chemistries. 2. LFTs are essentially unremarkable. The patient did have some gallbladder sludge in the CAT scan, questionable peripancreatic inflammative changes. I did review the CT, not significant inflammative changes, there had only a mild changes and the patient did have an ultrasound scan on 01/05 which was reviewed, found to have a gallbladder sludge. 3. The patient had a gastrointestinal work up done in the past which suggested of only gastric erosions and diverticulosis and hemorrhoids. PLAN Would recommend continue the hemoglobin and hematocrit. 2. High dose proton pump inhibitors. 3. The patient did have bare metal stent placed, it is more than a month which is reasonable to hold off the Plavix, if they are agreeable with the rn care transition and it may be reasonable to continue the baby aspirin with the high dose of proton pump inhibitors. 4. I will start the patient on clear liquid diet. 5. The patient have a mildly elevated amylase and lipase level with questionable peripancreatic inflammatory changes. Would request for ultrasound scan to further evaluate, look at the CBD. LFTs remains normal. We will continue closely follow up. No intervention at this present time planned. Thank you very much for allowing us to participate in the care of the patient. We will continue closely follow up her care and suggest further management based on the clinical course. Rubens Mg MD CECY
[2018-03-25] MEDS: Sodium Chloride 0.45% 1,000 ML IV SCH ×2 (05:32→17:34)
[2018-03-25 06:58] LABS: BASO # 0.03 K/mm3 (0.0-2.0); BASO % 0.5 % (0.0-3.0); EOS # 0.3 (0.0-0.7); EOS % 4.5 % (1.5-5.0); GRAN # 3.07 (1.4-6.5); GRAN % 55.6 % (50.0-68.0); HEMOGLOBIN 9.7 g/dL (12.0-16.0); LYMPH # 1.7 (1.2-3.4); LYMPH % 30.3 % (22.0-35.0); MEAN CELL VOLUME 83.4 fl (80.0-105.0); MEAN CORPUSCULAR HEMOGLOBIN 26.8 pg (25.0-35.0); MEAN CORPUSCULAR HGB CONC 32.1 g/dl (31.0-37.0); MEAN PLATELET VOLUME 10.5 fl (7.0-11.0); MONO # 0.5 (0.1-0.6); MONO % 9.1 % (1.0-6.0); RBC 3.62 10^6/uL (3.5-6.1); RED CELL DISTRIBUTION WIDTH 15.9 % (11.5-14.5); WHITE BLOOD COUNT 5.5 10^3/ul (4.5-11.0)
[2018-03-25 07:31] LABS: AMYLASE 126 U/L (35-125); LIPASE 682 U/L (23-300)
[2018-03-25] MEDS: Docusate-Senna 50 mg-8.6 mg Tab PO SCH ×2 (09:48→17:32)
--- NOTE | 2018-03-25 10:42 | PN ---
DATE: 03/25/2018 SUBJECTIVE: The patient is in [facility] in [place] room 362, bed 1. She was admitted with GI bleeding and vague abdominal pain. The patient has past history of coronary artery disease, she has had an angioplasty, she had catheterization through the femoral artery. She has an injury to the femoral artery at the catheterization site. The patient is on dialysis for chronic renal failure. The patient has history of hypertension, hyperlipidemia, hyperuricemia. The patient also has history of gastritis and she has had GI bleeding in the past and she is admitted with elevation of pancreatic enzymes, amylase and lipase and there is evidence of chronic mild pancreatitis. At this time, the patient is kept n.p.o. The patient is on IV fluids, the patient also has mild congestion this morning, but the patient denied any productive cough. The patient has past history of smoking. PHYSICAL EXAMINATION: GENERAL: The patient is conscious, pleasant. She has no acute pain, but she does have intermittent pain, for which the patient is on pain medications. VITAL SIGNS: The patient's pulse is 95, blood pressure is 160/76, respirations are 20, O2 sat is 97% on room air, temperature 98.2. HEENT: The patient's head is normocephalic. NECK: The thyroid is not enlarged. No lymphadenopathy. HEART: Normal sinus rhythm. S1, S2 present. No murmurs. LUNGS: Trachea central. Breath sounds are vesicular, diminished bilaterally. No localizing signs. ABDOMEN: Soft, there is some tenderness in the epigastric area. There is no fluid. There is no evidence of any masses. CADDYMASTER: She is conscious, rational, oriented and there are no focal neurological deficits. PLAN: The patient is going to be placed on dialysis. The patient's evaluation for GI is done by Dr. Mg, Dr. Cleveland is away. The patient also has cardiac evaluation by Dr. Binh Bridges, fruit harvest machine operator. At this time, the patient is treated as pancreatitis and GI bleed, so the patient has blood cross matched for transfusion as needed. Her condition is stable. Rule out pulmonary . We will continue management. Vanda Teresa MD
[2018-03-25] MEDS ORDERED: Insulin Reg-LOW-Coverage SC ONE (12:08)
--- NOTE | 2018-03-25 12:28 | US ---
PROCEDURE: Duplex arterial ultrasound of the right groin. HISTORY: Pain and pulsatile mass in the right groin. Evaluate for pseudoaneurysm or fistula. PHYSICIAN(S): Binh Tesfaye MD. FINDINGS: Dense calcification is noted obscuring evaluation of the right common femoral artery. The distal right external iliac artery and proximal right SFA and profunda femoral arteries are patent with relatively normal waveforms. The right common femoral vein is patent and compressible. There is no sonographic evidence of an AV fistula or pseudoaneurysm on these limited images. IMPRESSION: 1. No sonographic evidence for pseudoaneurysm or AV fistula in the right groin. 2. There is dense calcification obscuring evaluation of the right common femoral artery. If further evaluation is indicated, the patient may benefit from a CTA or MRA of this area.
[2018-03-25] MEDS: Morphine 2 mg/ml ISec IVP PRN (17:41)
[2018-03-25] MEDS: Albuterol-Ipratrop 3 mg / 0.5 (3 ml) UD IH SCH (19:36)
[2018-03-26] MEDS: Albuterol-Ipratrop 3 mg / 0.5 (3 ml) UD IH SCH ×4 (02:25→19:40)
--- NOTE | 2018-03-26 03:47 | PN ---
DATE: 03/25/2018 SUBJECTIVE: This patient was seen and evaluated earlier. Discussed with the nursing staff. No further episodes of melena. Patient is tolerating the diet. No complaints. Abdominal discomfort is tolerating better. PHYSICAL EXAMINATION: VITAL SIGNS: Temperature is 98.3, pulse 84, blood pressure 175/81. HEENT: Atraumatic, anicteric. NECK: Supple. HEART: S1 and S2 heard. LUNGS: Bilateral air entry present. ABDOMEN: Soft. There is mild tenderness in the epigastric area on deep palpation. EXTREMITIES: No cyanosis. No clubbing. LABORATORY DATA: Hemoglobin 9.7, hematocrit 30.2, WBC 5.5, platelets 239. LFT is normal. Amylase is mildly elevated to 126. Lipase is 682. IMPRESSION: This 87-year-old patient admitted with abdominal pain and dark stool. Patient has history of coronary artery disease, status post percutaneous coronary intervention, bare metal stent placement, on aspirin and Plavix. Patient is also found to have mild stranding around the pancreas suggestive of pancreatitis. Patient does have mildly elevated pancreatic enzymes and patient has gallbladder sludge. Liver function test is otherwise unremarkable. Patient had an endoscopy and colonoscopy recently and found to have gastric erosions, diverticulosis and hemorrhoids. RECOMMENDATIONS: Would recommend: 1. Followup of the hemoglobin and hematocrit. Slowly advance the diet. 2. We will consider MRCP, if the LFT shows an upper trend or the patient is more symptomatic. We will also start the patient on Actigall and also we will repeat the ultrasound scan of the abdomen. Thank you very much for allowing us to participate in the care of the patient. Rubens Mg MD
[2018-03-26] MEDS: Sodium Chloride 0.45% 1,000 ML IV SCH ×2 (05:46→09:20)
[2018-03-26 06:43] LABS: BASO # 0.02 K/mm3 (0.0-2.0); BASO % 0.3 % (0.0-3.0); EOS # 0.2 (0.0-0.7); EOS % 4.1 % (1.5-5.0); GRAN # 3.59 (1.4-6.5); GRAN % 61.8 % (50.0-68.0); HEMOGLOBIN 9.9 g/dL (12.0-16.0); LYMPH # 1.4 (1.2-3.4); LYMPH % 23.8 % (22.0-35.0); MEAN CELL VOLUME 83.9 fl (80.0-105.0); MEAN CORPUSCULAR HGB CONC 32.1 g/dl (31.0-37.0); MEAN PLATELET VOLUME 10.9 fl (7.0-11.0); MONO # 0.6 (0.1-0.6); RBC 3.67 10^6/uL (3.5-6.1); RED CELL DISTRIBUTION WIDTH 15.9 % (11.5-14.5); WHITE BLOOD COUNT 5.8 10^3/ul (4.5-11.0)
[2018-03-26 07:19] LABS: ALB/GLOB RATIO 1.2 (1.1-1.8); ALBUMIN 3.3 g/dL (3.0-4.8); ALT/SGPT 30 U/L (7-56); AMYLASE 119 U/L (35-125); AST/SGOT 32 U/L (14-36); BILIRUBIN,DIRECT 0.2 mg/dL (0.0-0.4); BLOOD UREA NITROGEN 9 mg/dL (7-21); CALCIUM 9.5 mg/dL (8.4-10.5); GFR AFRICAN-AMERICAN > 60; GFR NON-AFRICAN AMERICAN 59; LIPASE 493 U/L (23-300)
[2018-03-26] MEDS: Insulin Reg-LOW-Coverage SC SCH ×4 (07:53→21:17)
[2018-03-26] MEDS: Docusate-Senna 50 mg-8.6 mg Tab PO SCH ×2 (09:19→17:04)
[2018-03-26] MEDS ORDERED: Simethicone 80 mg Chewtab PO PRN (10:38)
[2018-03-26] MEDS ORDERED: Magnesium Citrate Oral SOL (300 ml) PO ONE (10:38)
--- NOTE | 2018-03-26 10:58 | US ---
Date of service: 03/26/2018 HISTORY: ??PANCREATITIS COMPARISON: None. TECHNIQUE: Sonographic evaluation of the abdomen. FINDINGS: LIVER: Measures 17.4 cm. Normal echogenicity of the liver parenchyma. No mass. No intrahepatic bile duct dilatation. GALLBLADDER: Echogenic layering sludge in the gallbladder COMMON BILE DUCT: Measures 6.0 mm. No stones. No dilatation. PANCREAS: Not visualized. RIGHT KIDNEY: Measures 9.3 x 4.0 by 3.6cm. Normal echogenicity. No calculus, mass, or hydronephrosis. LEFT KIDNEY: Measures 8.3 x 3.6 x 4.0cm. Normal echogenicity. No calculus, mass, or hydronephrosis. SPLEEN: Normal in size and contour. No mass. 6.8 x 4.1 x 3.6 AORTA: No aneurysmal dilatation. IVC: Unremarkable. OTHER FINDINGS: None. IMPRESSION: Gallbladder sludge. Pancreas not visualized due to bowel gas.
[2018-03-26] MEDS ORDERED: Morphine 2 mg/ml ISec IVP PRN (11:04)
--- NOTE | 2018-03-26 11:04 | CP.PCM.PN ---
Subjective - Date & Time of Evaluation Date of Evaluation: 03/26/18 Time of Evaluation: 11:01 - Subjective Subjective: Cathleen Hanson, PGY2, Medicine Progress Note for Dr Anderson: Patient seen and examined at bedside. No acute events overnight. Patient reports that her epigastric pain is better. Reports that she has not had a BM since admission. Denies nausea, vomiting, fever, chills, diarrhea, leg swelling. Objective - Vital Signs/Intake and Output Vital Signs (last 24 hours): Temp Pulse Resp BP Pulse Ox 98.4 F 103 H 19 144/62 99 03/26/18 08:10 03/26/18 09:19 03/26/18 08:10 03/26/18 09:19 03/26/18 08:10 Intake and Output: 03/26/18 03/26/18 06:59 18:59 Intake Total 2635 Balance 2635 - Medications Medications: Current Medications Albuterol/Ipratropium (Duoneb 3 Mg/0.5 Mg (3 Ml) Ud) 3 ml IH [id number] COUNTS INCLUDE 234 BEDS AT THE [facility] Last Admin: 03/26/18 07:01 Dose: 3 ml Allopurinol (Zyloprim) 300 mg PO DAILY [facility]S [facility]CLUDE 234 BEDS AT [facility] Last Admin: 03/26/18 09:18 Dose: 300 mg Aspirin (Ecotrin) 81 mg PO DAILY [facility]S [facility]CLUDE 234 BEDS AT [facility] Last Admin: 03/26/18 09:19 Dose: 81 mg Atorvastatin Calcium (Lipitor) 40 mg PO DIN COUNTS [facility]CLUDE 234 BEDS AT [facility] Last Admin: 03/25/18 17:33 Dose: 40 mg Cyproheptadine HCl (Periactin) 4 mg PO DAILY [facility]S [facility]CLUDE 234 BEDS AT [facility] Last Admin: 03/26/18 09:18 Dose: 4 mg Duloxetine HCl (Cymbalta) 60 mg PO DAILY [facility]S [facility]CLUDE 234 BEDS AT [facility] Last Admin: 03/26/18 09:18 Dose: 60 mg Hydralazine HCl (Apresoline) 25 mg PO BID [facility]S [facility]CLUDE 234 BEDS AT [facility] Last Admin: 03/26/18 09:18 Dose: 25 mg Hydrochlorothiazide (Microzide) 12.5 mg PO DAILY [facility]CLUDE 234 BEDS AT [facility] Last Admin: 03/26/18 09:18 Dose: 12.5 mg Sodium Chloride (Sodium Chloride 0.45%) 1,000 mls @ 80 mls/hr IV .[id number] COUNTS [facility]CLUDE 234 BEDS AT [facility] Last Admin: 03/26/18 09:20 Dose: 80 mls/hr Insulin Human Regular (Humulin R Low) 0 units SC ACHS COUNTS INCLUDE 234 BEDS AT [facility] PRN Reason: Protocol Last Admin: 03/26/18 07:53 Dose: 4 units Lisinopril (Zestril) 20 mg PO BID [facility]S [facility]CLUDE 234 BEDS AT [facility] Last Admin: 03/26/18 09:19 Dose: 20 mg Loratadine (Claritin) 10 mg PO DAILY [facility]S [facility]CLUDE 234 BEDS AT [facility] Last Admin: 03/26/18 09:19 Dose: 10 mg Morphine Sulfate (Morphine) 2 mg IVP Q4H PRN PRN Reason: Pain, severe (8-10) Last Admin: 03/25/18 17:41 Dose: 2 mg Pantoprazole Sodium (Protonix Inj) 40 mg IVP DAILY [facility] 234 BEDS AT [facility] Last Admin: 03/26/18 09:20 Dose: 40 mg Polyethylene Glycol (Miralax) 17 gm PO BID COUNTS [facility]CLUDE 234 BEDS AT [facility] Quetiapine Fumarate (Seroquel) 300 mg PO HS [facility]S [facility]CLUDE 234 BEDS AT [facility] PRN Reason: Protocol Last Admin: 03/25/18 21:44 Dose: 300 mg Senna/Docusate Sodium (Senokot S 50 Mg-8.6 Mg) 2 tab PO BID [facility] 234 BEDS AT [facility] Last Admin: 03/26/18 09:19 Dose: 2 tab Simethicone (Mylicon Chew Tab) 80 mg PO PCHS PRN PRN Reason: GI distress - Labs Labs: 03/26/18 06:00 03/26/18 06:00 PT 10.9 SECONDS (9.4-12.5) 03/23/18 17:10 INR 0.96 (0.93-1.08) 03/23/18 17:10 APTT 28.1 Seconds (25.1-36.5) 03/23/18 17:10 - Constitutional Appears: Non-toxic, No Acute Distress - Head Exam Head Exam: ATRAUMATIC, NORMOCEPHALIC - Eye Exam Eye Exam: EOMI, PERRL. absent: Conjunctival injection, Nystagmus, Scleral icterus Pupil Exam: NORMAL ACCOMODATION, PERRL. absent: Irregular, Miosis, Mydriatic, Unequal - ENT Exam ENT Exam: Mucous Membranes Moist - Neck Exam Neck Exam: Full ROM - Respiratory Exam Respiratory Exam: Clear to Ausculation Bilateral, NORMAL BREATHING PATTERN. absent: Accessory Muscle Use, Prolonged Expiratory Phase, Rales, Rhonchi, Wheezes, Respiratory Distress - Cardiovascular Exam Cardiovascular Exam: REGULAR RHYTHM, RRR, +S1, +S2. absent: Murmur - GI/Abdominal Exam GI & Abdominal Exam: Soft, Tenderness (mild epigastic tenderness), Normal Bowel Sounds. absent: Distended, Firm, Guarding, Rigid, Mass, Organomegaly - Extremities Exam Extremities Exam: Full ROM, Normal Inspection. absent: Calf Tenderness, Pedal Edema - Back Exam Back Exam: NORMAL INSPECTION. absent: CVA tenderness (L), CVA tenderness (R) - Neurological Exam Neurological Exam: Alert, Awake, Oriented x3 - Psychiatric Exam Psychiatric exam: Normal Affect, Normal Mood - Skin Skin Exam: Dry, Normal Color, Warm Assessment and Plan - Assessment and Plan (Free Text) Assessment: 87 year old female with PMH DM, IBS, HLD, CAD s/p recent RCA stent [id number], presents for epigastric pain, GI bleed: GI bleed: - EGD 01/2018: shows nonbleeding gastric ulcers, negative for H pylori. - Colonoscopy 01/2018 shows diverticulosis, hemorrhoids - Hgb stable - at baseline - No further melena episodes since admission - stopped plavix in hospital (completed 1 month of Plavix after bare metal stent placement) - GI on board. Appreciate recs. Mild pancreatitis: - IVF, CLD - advance as tolerated - GI consult appreciated - Abd US shows gallbladder sludge. Pancreas not visualized due to bowel gas. - morphine prn pain - CT abd pelvis mild inflammatory changes around pancreas -pancreatitis? irregular calcifications /enhancement surrounding R common femoral artery - underlying hematoma/pseudoaneurysm. US eval? multifocal aneurysmal dilatation involving descending aorta Constipation: - lower dose of morphine - colace/sennokot bid - added miralax - mag citrate x1 - monitor Hx of HTN: - continue hydralazine, zestril CAD s/p stent: - continue ASA - hold Plavix - Cardiology consulted. f/u recs. Enhancement on CT of Right femoral artery: - CT abd pelvis shows irregular calcifications /enhancement surrounding R common femoral artery - underlying hematoma/pseudoaneurysm. US eval? - arterial doppler negative for aneurysm Diabetes mellitus II - ISS -BG ACHS PPX: protonix, scds Case seen and discussed with Dr Anderson. Cathleen Hanson, PGY2
[2018-03-26] MEDS: POLYETHYLENE GLYCOL 3350 17 GM/Dose PACKET PO SCH ×2 (11:30→17:04)
[2018-03-26 11:35] LABS: URIC ACID 4.7 mg/dL (2.5-6.2)
--- NOTE | 2018-03-26 12:25 | RAD ---
Date of service: 03/26/2018 HISTORY: ATELACTASIS COMPARISON: 03/23/2018 TECHNIQUE: Chest PA and lateral FINDINGS: LUNGS: No active pulmonary disease. PLEURA: No significant pleural effusion identified. No pneumothorax apparent. CARDIOVASCULAR: Mild cardiomegaly OSSEOUS STRUCTURES: No significant abnormalities. VISUALIZED UPPER ABDOMEN: Normal. OTHER FINDINGS: None. IMPRESSION: No active disease.
--- NOTE | 2018-03-26 13:20 | PN ---
DATE: 03/26/2018 SUBJECTIVE: The patient is seen lying in the bed in room 362, bed 1. The patient is comfortable. The patient is complaining of constipation. The patient also complaining of abdominal pain. The patient denies any more melanotic stool. The patient denies any nausea, denies any vomiting. REVIEW OF SYSTEMS: Thirteen system review was done, pertinent positive and negative dictated above. PHYSICAL EXAMINATION: VITAL SIGNS: T-max 98.4; heart rate 84, 103; blood pressure 144/62; respirations 19; O2 sat 99%. HEENT: Head examination normocephalic, atraumatic. HEENT examination shows pinkish pale conjunctivae. Dry oral mucosa. No neck rigidity. CHEST: Symmetrical and kyphosis. LUNGS: Shows no rales, crackles or wheezing. CARDIOVASCULAR: S1, S2, regular rhythm. Questionable soft systolic murmur, left sternal border, left second intercostal space. ABDOMEN: Soft, protuberant. Positive bowel sound. Positive voluntary guarding. No rebound tenderness. GENITALIA: Female. RECTAL: Deferred. EXTREMITY: Shows trace swelling of the lower extremity. No pitting edema. No calf tenderness noted. MUSCULOSKELETAL: Shows a body mass index of 35. Motor strength is 5/5 in the upper and lower extremity. NEUROLOGICAL: The patient is alert, awake, oriented x3. Cranial nerves II through XII limited. Gait examination is not tested. DIAGNOSTICS: From 03/26/2018, WBC 5.8, hemoglobin and hematocrit 9.9 and 31, platelet 252. Sodium 137, potassium 3.9, chloride 101, CO2 of 26, anion gap 15, BUN 9, creatinine 0.9, GFR greater than 60, glucose 286, calcium 9.5. LFTs are normal. Amylase is 119. Lipase is down to 493 from a peak lipase of 719. Fingerstick blood sugar 191, 188, 132, 182, 286. Blood bank, O positive blood type. Abdominal ultrasound was done. Gallbladder sludge noted. CAT scan of the abdomen and pelvis noted. Chest x-ray result and arterial Doppler of the lower extremity noted. IMPRESSION AND PLAN: 1. Constipation. 2. Melena with questionable lower gastrointestinal bleeding. 3. Questionable acute pancreatitis. 4. Questionable lower gastrointestinal bleeding with melanotic stool. 5. Tachycardia. 6. Hypertension. 7. Anemia with decreasing hemoglobin and hematocrit. 8. Hyperglycemia. 9. Insulin-requiring diabetes mellitus with hyperglycemia. 10. Hypokalemia. 11. Questionable pancreatitis with elevated amylase, lipase. 12. O positive blood type. 13. Right common femoral artery dense calcification. 14. Cardiomegaly. 15. Degenerative joint disease of the bones. 16. Bibasilar atelectasis with minimal scarring. 17. Coronary artery calcification. 18. Gallbladder sludge. 19. Mild peripancreatic inflammation. 20. Bilateral adrenal gland nodular thickening. 21. Renal cyst. 22. Moderate hiatal hernia. 23. Sigmoid colon diverticulosis. 24. 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 25. Iliac artery extensive calcified plaques. 26. Irregular calcification surrounding the right common femoral artery. 27. Osteopenia with left iliac bone lucency. 28. Degenerative joint disease of the hips and degenerative joint disease of the lumbar spine. 29. Left breast punctate calcification. 30. Pancreatitis with inflammatory changes around the pancreas. 31. Right common femoral artery irregular calcification. 32. Moderate hiatal hernia. 33. Deconditioning. 34. Hypertensive cardiovascular disease. 35. History of coronary artery disease, status post angioplasty and bare-metal stent placement. 36. Diabetic neuropathy. 37. Dyslipidemia. 38. Anorexia. 39. Hyperuricemia. Plan at this time, the patient has been ordered serial labs. Consultation: Cardiology and Gastroenterology. The patient is on IV fluid half normal at 80 mL an hour, Actigall 300 twice a day. The patient will be given a bottle of mag citrate once daily, one stat dose now; Claritin 10 mg daily; Cymbalta 60 mg daily. The patient is on DuoNeb nebulizer every 6 hours [id number]. The patient has been started on Actigall 300 twice a day, Ecotrin 81 mg daily. The patient is on insulin sliding scale coverage before meals and at bedtime, Lipitor 40 mg daily, MiraLax 17 g twice a day, morphine decreased to 1 mg IV every 8 p.r.n., simethicone 80 mg after a meal and at bedtime p.r.n., Periactin 4 mg daily, Protonix 40 mg daily, Senokot 2 tablets twice a day, Seroquel 300 at bedtime, Zestril 20 mg twice a day, allopurinol 300 mg daily. Repeat chest x-ray ordered. Oxygen 2 L ordered. The patient is on liquid diet by the Gastroenterology. The patient has been ordered bladder scan every 6 hours, BRANDAN stockings, SCDs, out of bed, physical therapy, occupational therapy ordered. The patient's further management will be dependent upon the patient's clinical condition, hemodynamic status and as per the patient response to therapeutic intervention, as per the patient's diagnostic test results and as per recommendation by Gastroenterology and Cardiology. The patient's Plavix will be held as the patient has completed 1 month of therapy with Plavix. Chest PT will be ordered for atelectasis. At present, the patient's further management will be dependent upon the patient's clinical condition, hemodynamic status and as per the patient's response to therapeutic intervention, as per the patient's diagnostic test results, which has been updated to the patient. Dictated and electronically signed, not read. Jack Anderson MD
--- NOTE | 2018-03-26 16:36 | CP.PCM.PN ---
<Travis Finch - Last Filed: 03/26/18 16:38> Subjective - Date & Time of Evaluation Date of Evaluation: 03/26/18 Time of Evaluation: 07:40 - Subjective Subjective: PGY-4 GI Fellow Prog Note Pt lying in bed when seen this AM. States some abd pain but improved from days prior. Denied any hematochezia or signs of bleed though nursing later said that patient had dark bowel movement. 5 point ROS negative other than stated above. Objective - Vital Signs/Intake and Output Vital Signs (last 24 hours): Temp Pulse Resp BP Pulse Ox 98.4 F 103 H 19 144/62 99 03/26/18 08:10 03/26/18 09:19 03/26/18 08:10 03/26/18 09:19 03/26/18 08:10 Intake and Output: 03/26/18 03/26/18 06:59 18:59 Intake Total 2635 800 Output Total 300 Balance 2635 500 - Medications Medications: Current Medications Albuterol/Ipratropium (Duoneb 3 Mg/0.5 Mg (3 Ml) Ud) 3 ml IH [id number] [facility] Last Admin: 03/26/18 13:44 Dose: Not Given Allopurinol (Zyloprim) 300 mg PO DAILY [facility] Last Admin: 03/26/18 09:18 Dose: 300 mg Aspirin (Ecotrin) 81 mg PO DAILY [facility] Last Admin: 03/26/18 09:19 Dose: 81 mg Atorvastatin Calcium (Lipitor) 40 mg PO DIN [facility] Last Admin: 03/25/18 17:33 Dose: 40 mg Cyproheptadine HCl (Periactin) 4 mg PO DAILY [facility] Last Admin: 03/26/18 09:18 Dose: 4 mg Duloxetine HCl (Cymbalta) 60 mg PO DAILY [facility] Last Admin: 03/26/18 09:18 Dose: 60 mg Sodium Chloride (Sodium Chloride 0.45%) 1,000 mls @ 80 mls/hr IV .[id number] [facility] Last Admin: 03/26/18 09:20 Dose: 80 mls/hr Insulin Human Regular (Humulin R Low) 0 units SC ACHS [facility] PRN Reason: Protocol Last Admin: 03/26/18 11:30 Dose: 4 units Lisinopril (Zestril) 20 mg PO BID [facility] Last Admin: 03/26/18 09:19 Dose: 20 mg Loratadine (Claritin) 10 mg PO DAILY [facility] Last Admin: 03/26/18 09:19 Dose: 10 mg Morphine Sulfate (Morphine) 1 mg IVP Q8H PRN PRN Reason: Pain, severe (8-10) Pantoprazole Sodium (Protonix Inj) 40 mg IVP DAILY [facility] Last Admin: 03/26/18 09:20 Dose: 40 mg Polyethylene Glycol (Miralax) 17 gm PO BID [facility] Last Admin: 03/26/18 11:30 Dose: 17 gm Quetiapine Fumarate (Seroquel) 300 mg PO HS [facility] PRN Reason: Protocol Last Admin: 03/25/18 21:44 Dose: 300 mg Senna/Docusate Sodium (Senokot S 50 Mg-8.6 Mg) 2 tab PO BID [facility] Last Admin: 03/26/18 09:19 Dose: 2 tab Simethicone (Mylicon Chew Tab) 80 mg PO PCHS PRN PRN Reason: GI distress Ursodiol (Actigall) 300 mg PO BID [facility] Last Admin: 03/26/18 11:30 Dose: 300 mg - Labs Labs: 03/26/18 06:00 03/26/18 06:00 PT 10.9 SECONDS (9.4-12.5) 03/23/18 17:10 INR 0.96 (0.93-1.08) 03/23/18 17:10 APTT 28.1 Seconds (25.1-36.5) 03/23/18 17:10 - Constitutional Appears: Non-toxic, No Acute Distress - Eye Exam Eye Exam: EOMI. absent: Conjunctival injection, Scleral icterus - Respiratory Exam Respiratory Exam: NORMAL BREATHING PATTERN. absent: Accessory Muscle Use, Respiratory Distress - Cardiovascular Exam Cardiovascular Exam: REGULAR RHYTHM. absent: Bradycardia, Tachycardia - GI/Abdominal Exam GI & Abdominal Exam: Soft, Tenderness (mildly ttp in epigastrum w/o guarding), Normal Bowel Sounds. absent: Distended, Firm, Guarding, Rigid, Mass, Pulsatile Mass Assessment and Plan - Assessment and Plan (Free Text) Assessment: 87 yo BF with h/o CAD s/p BMS, HTN, HLD presenting with abd pain and reported dark stools. # Melena: Pt with risk factors of DAPT for recent BMS placement on 02/05/18. EGD and CSPY on 01/09/18 with gastric erosions and internal hemorrhoids. After initial Hgb mildy lower on admission has been stable for 24 hrs. Given that BMS > 30 days old, would suspect that OK to hold clopidogrel but would defer to Primary and Cardiology. # Acute Pancreatitis: Symptoms + imaging findings; therefore, 2/3 criteria ( lipase not 3xULN). Trigger likely related to sludge seen on US. No sig EtOH nor stones seen. Less likely medication induced. Plan: - Clear liquid diet today given ongoing reports of melena - No plans for endoscopy at this time - Continue PPI - Pain control per primary - If significant pain, would return to NPO - Cont Ursodiol Pt seen and examined with Dr. Mg Attending/Attestation - Attestation I have personally seen and examined this patient.: Yes I have fully participated in the care of the patient.: Yes I have reviewed all pertinent clinical information, including history, physical exam and plan: Yes <Rubens Mg V - Last Filed: 03/26/18 23:58> Objective - Vital Signs/Intake and Output Vital Signs (last 24 hours): Temp Pulse Resp BP Pulse Ox 98.5 F 100 H 19 180/87 H 97 03/26/18 18:00 03/26/18 19:43 03/26/18 18:00 03/26/18 19:43 03/26/18 18:00 Intake and Output: 03/26/18 03/27/18 18:59 06:59 Intake Total 800 Output Total 300 1250 Balance 500 -1250 - Medications Medications: Current Medications Albuterol/Ipratropium (Duoneb 3 Mg/0.5 Mg (3 Ml) Ud) 3 ml IH [id number] [facility] Last Admin: 03/26/18 19:40 Dose: Not Given Allopurinol (Zyloprim) 300 mg PO DAILY [facility] Last Admin: 03/26/18 09:18 Dose: 300 mg Aspirin (Ecotrin) 81 mg PO DAILY [facility] Last Admin: 03/26/18 09:19 Dose: 81 mg Atorvastatin Calcium (Lipitor) 40 mg PO DIN [facility] Last Admin: 03/26/18 16:33 Dose: 40 mg Cyproheptadine HCl (Periactin) 4 mg PO DAILY [facility] Last Admin: 03/26/18 09:18 Dose: 4 mg Duloxetine HCl (Cymbalta) 60 mg PO DAILY [facility] Last Admin: 03/26/18 09:18 Dose: 60 mg Sodium Chloride (Sodium Chloride 0.45%) 1,000 mls @ 50 mls/hr IV .Q20H [facility] Last Admin: 03/26/18 19:43 Dose: 50 mls/hr Insulin Human Regular (Humulin R Low) 0 units SC ACHS [facility] PRN Reason: Protocol Last Admin: 03/26/18 21:17 Dose: Not Given Lisinopril (Zestril) 20 mg PO BID [facility] Last Admin: 03/26/18 17:17 Dose: Not Given Loratadine (Claritin) 10 mg PO DAILY [facility] Last Admin: 03/26/18 09:19 Dose: 10 mg Morphine Sulfate (Morphine) 1 mg IVP Q8H PRN PRN Reason: Pain, severe (8-10) Pantoprazole Sodium (Protonix Inj) 40 mg IVP DAILY [facility] Last Admin: 03/26/18 09:20 Dose: 40 mg Polyethylene Glycol (Miralax) 17 gm PO BID [facility] Last Admin: 03/26/18 17:04 Dose: 17 gm Quetiapine Fumarate (Seroquel) 300 mg PO [facility] PRN Reason: Protocol Last Admin: 03/26/18 21:04 Dose: 300 mg Senna/Docusate Sodium (Senokot S 50 Mg-8.6 Mg) 2 tab PO BID [facility] Last Admin: 03/26/18 17:04 Dose: 2 tab Simethicone (Mylicon Chew Tab) 80 mg PO HS PRN PRN Reason: GI distress Ursodiol (Actigall) 300 mg PO BID [facility] Last Admin: 03/26/18 17:04 Dose: 300 mg - Labs Labs: 03/26/18 06:00 03/26/18 06:00 PT 10.9 SECONDS (9.4-12.5) 03/23/18 17:10 INR 0.96 (0.93-1.08) 03/23/18 17:10 APTT 28.1 Seconds (25.1-36.5) 03/23/18 17:10 - Constitutional Appears: Well - Head Exam Head Exam: ATRAUMATIC, NORMAL INSPECTION, NORMOCEPHALIC - Eye Exam Eye Exam: EOMI, Normal appearance, PERRL Pupil Exam: NORMAL ACCOMODATION, PERRL - ENT Exam ENT Exam: Mucous Membranes Moist, Normal Exam - Neck Exam Neck Exam: Full ROM, Normal Inspection. absent: Lymphadenopathy - Respiratory Exam Respiratory Exam: Clear to Ausculation Bilateral, NORMAL BREATHING PATTERN - Cardiovascular Exam Cardiovascular Exam: REGULAR RHYTHM, +S1, +S2. absent: Murmur - GI/Abdominal Exam GI & Abdominal Exam: Soft, Normal Bowel Sounds. absent: Tenderness - Rectal Exam Rectal Exam: NORMAL INSPECTION - Exam Exam: Circumcision, NORMAL INSPECTION External exam: NORMAL EXTERNAL EXAM Speculum exam: NORMAL SPECULUM EXAM Bimanual exam: NORMAL BIMANUAL EXAM - Extremities Exam Extremities Exam: Full ROM, Normal Capillary Refill, Normal Inspection. absent : Joint Swelling, Pedal Edema - Back Exam Back Exam: NORMAL INSPECTION - Neurological Exam Neurological Exam: Alert, Awake, CN II-XII Intact, Normal Gait, Oriented x3 - Psychiatric Exam Psychiatric exam: Normal Affect, Normal Mood - Skin Skin Exam: Dry, Intact, Normal Color, Warm Attending/Attestation - Attestation I have personally seen and examined this patient.: Yes I have fully participated in the care of the patient.: Yes I have reviewed all pertinent clinical information, including history, physical exam and plan: Yes
[2018-03-26] MEDS ORDERED: Morphine 2 mg/2 mL syringe IVP PRN (16:43)
[2018-03-26] MEDS ORDERED: Sodium Chloride 0.45% 1,000 ML IV SCH (18:59)
[2018-03-26 19:13] VITALS: O2SAT 97
--- NOTE | 2018-03-26 19:26 | CON ---
DATE: 03/26/2018 CARDIOLOGY CONSULTATION HISTORY OF PRESENT ILLNESS: The patient is chest pain free. No shortness breath noted. The patient presented with tarry stools consistent with a GI bleed. PAST MEDICAL HISTORY: Includes PTCA and stent recently in February. A bare metal stent was utilized. Currently, the patient is chest pain free. In addition, the patient suffers from diabetes mellitus, hypertension, and hypercholesterolemia. SOCIAL HISTORY: The patient does not smoke. REVIEW OF SYSTEMS: A 14-point review of systems was reviewed in detail. No cardiac symptomatology noted. PHYSICAL EXAMINATION: VITAL SIGNS: Blood pressure is 144/62, the heart rate is in the 80s. NECK: Negative JVD. LUNGS: Without rales. HEART: S1, S2. EXTREMITIES: Without edema. LABORATORY DATA: Includes an EKG that shows no acute changes. BUN and creatinine are unremarkable. Glucose 286. The hemoglobin is 9.9 and stable. IMPRESSION: 1. Status post gastrointestinal bleed. 2. Status post percutaneous transluminal coronary angioplasty and stent in February with a bare metal stent. 3. Coronary artery disease. 4. Stable angina. 5. Anemia. 6. Hypertension. 7. Hypercholesterolemia. 8. Diabetes mellitus. Given these findings, the patient does not need to be on Plavix given that a bare metal stent was placed. We will discontinue the Plavix. We would restart baby aspirin as soon as possible and cleared by GI. In addition, we will measure the patient's pulse oximetry on room air. If it is above 94% to 95%, we will discontinue nasal O2. Binh Bridges MD
[2018-03-27] MEDS: Albuterol-Ipratrop 3 mg / 0.5 (3 ml) UD IH SCH ×3 (01:23→13:15)
[2018-03-27 06:41] LABS: BASO # 0.02 K/mm3 (0.0-2.0); BASO % 0.4 % (0.0-3.0); EOS # 0.3 (0.0-0.7); EOS % 6.1 % (1.5-5.0); GRAN # 2.82 (1.4-6.5); GRAN % 53.3 % (50.0-68.0); HEMOGLOBIN 9.7 g/dL (12.0-16.0); LYMPH # 1.6 (1.2-3.4); LYMPH % 30.5 % (22.0-35.0); MEAN CELL VOLUME 83.7 fl (80.0-105.0); MEAN CORPUSCULAR HEMOGLOBIN 26.8 pg (25.0-35.0); MEAN PLATELET VOLUME 10.7 fl (7.0-11.0); MONO # 0.5 (0.1-0.6); MONO % 9.7 % (1.0-6.0); RBC 3.62 10^6/uL (3.5-6.1); RED CELL DISTRIBUTION WIDTH 15.8 % (11.5-14.5); WHITE BLOOD COUNT 5.3 10^3/ul (4.5-11.0)
[2018-03-27 06:53] LABS: ALB/GLOB RATIO 1.2 (1.1-1.8); ALBUMIN 3.3 g/dL (3.0-4.8); ALT/SGPT 30 U/L (7-56); AMYLASE 123 U/L (35-125); AST/SGOT 40 U/L (14-36); BILIRUBIN,DIRECT 0.1 mg/dL (0.0-0.4); BLOOD UREA NITROGEN 9 mg/dL (7-21); CALCIUM 9.6 mg/dL (8.4-10.5); GFR AFRICAN-AMERICAN > 60; GFR NON-AFRICAN AMERICAN 52; LIPASE 435 U/L (23-300)
--- NOTE | 2018-03-27 07:51 | CP.PCM.PN ---
<Travis Finch - Last Filed: 03/27/18 16:22> Subjective - Date & Time of Evaluation Date of Evaluation: 03/27/18 Time of Evaluation: 07:10 - Subjective Subjective: PGY-4 GI Fellow Prog Note Pt lying in bed when seen this AM. States tolerating diet well. Reports multiple loose BMs after bowel regimen with light brown stools. Denied abd pain , N/V, melena nor hematochezia. 5 point ROS negative other than stated above Objective - Vital Signs/Intake and Output Vital Signs (last 24 hours): Temp Pulse Resp BP Pulse Ox 98.5 F 100 H 19 180/87 H 97 03/26/18 18:00 03/26/18 19:43 03/26/18 18:00 03/26/18 19:43 03/26/18 18:00 Intake and Output: 03/27/18 03/27/18 06:59 18:59 Intake Total 600 Output Total 1250 Balance -650 - Medications Medications: Current Medications Albuterol/Ipratropium (Duoneb 3 Mg/0.5 Mg (3 Ml) Ud) 3 ml IH [id number] [facility] Last Admin: 03/27/18 07:29 Dose: 3 ml Allopurinol (Zyloprim) 300 mg PO DAILY [facility] Last Admin: 03/26/18 09:18 Dose: 300 mg Aspirin (Ecotrin) 81 mg PO DAILY [facility] Last Admin: 03/26/18 09:19 Dose: 81 mg Atorvastatin Calcium (Lipitor) 40 mg PO DIN [facility] Last Admin: 03/26/18 16:33 Dose: 40 mg Clonidine HCl (Catapres) 0.1 mg PO Q6H PRN PRN Reason: FORSBP>=170&/ORDBP>=95MMHG Cyproheptadine HCl (Periactin) 4 mg PO DAILY [facility] Last Admin: 03/26/18 09:18 Dose: 4 mg Duloxetine HCl (Cymbalta) 60 mg PO DAILY [facility] Last Admin: 03/26/18 09:18 Dose: 60 mg Sodium Chloride (Sodium Chloride 0.45%) 1,000 mls @ 50 mls/hr IV .Q20H [facility] Last Admin: 03/26/18 19:43 Dose: 50 mls/hr Insulin Human Regular (Humulin R Low) 0 units SC ACHS [facility] PRN Reason: Protocol Last Admin: 03/26/18 21:17 Dose: Not Given Lisinopril (Zestril) 20 mg PO BID [facility] Last Admin: 03/26/18 17:17 Dose: Not Given Loratadine (Claritin) 10 mg PO DAILY [facility] Last Admin: 03/26/18 09:19 Dose: 10 mg Morphine Sulfate (Morphine) 1 mg IVP Q8H PRN PRN Reason: Pain, severe (8-10) Pantoprazole Sodium (Protonix Inj) 40 mg IVP DAILY [facility] Last Admin: 03/26/18 09:20 Dose: 40 mg Polyethylene Glycol (Miralax) 17 gm PO BID [facility] Last Admin: 03/26/18 17:04 Dose: 17 gm Quetiapine Fumarate (Seroquel) 300 mg PO HS [facility] PRN Reason: Protocol Last Admin: 03/26/18 21:04 Dose: 300 mg Senna/Docusate Sodium (Senokot S 50 Mg-8.6 Mg) 2 tab PO BID [facility] Last Admin: 03/26/18 17:04 Dose: 2 tab Simethicone (Mylicon Chew Tab) 80 mg PO HS PRN PRN Reason: GI distress Ursodiol (Actigall) 300 mg PO BID [facility] Last Admin: 03/26/18 17:04 Dose: 300 mg - Labs Labs: 03/27/18 05:45 03/27/18 05:45 PT 10.9 SECONDS (9.4-12.5) 03/23/18 17:10 INR 0.96 (0.93-1.08) 03/23/18 17:10 APTT 28.1 Seconds (25.1-36.5) 03/23/18 17:10 - Constitutional Appears: Well, Non-toxic - Head Exam Head Exam: ATRAUMATIC, NORMAL INSPECTION - Eye Exam Eye Exam: EOMI. absent: Scleral icterus - Respiratory Exam Respiratory Exam: NORMAL BREATHING PATTERN. absent: Accessory Muscle Use - GI/Abdominal Exam GI & Abdominal Exam: Distended (mildly), Soft, Normal Bowel Sounds. absent: Firm, Guarding, Rigid, Tenderness, Pulsatile Mass Assessment and Plan - Assessment and Plan (Free Text) Assessment: 87 yo BF with h/o CAD s/p BMS, HTN, HLD presenting with abd pain and reported dark stools. # Melena: Resolved. Pt with risk factors of DAPT for recent BMS placement on 02/05/18. EGD and CSPY on 01/09/18 with gastric erosions and internal hemorrhoids. After initial Hgb mildy lower on admission has been stable for 24 hrs. Given that BMS > 30 days old, would suspect that OK to hold clopidogrel but would defer to Primary and Cardiology. Since clopidogrel held, pt reports light brown stools and no further melena. Hgb stable from day prior. # Acute Pancreatitis: Improved. Symptoms + imaging findings; therefore, 2/3 criteria (lipase not 3xULN). Trigger likely related to sludge seen on US. No sig EtOH nor stones seen. Less likely medication induced. Plan: - Clear liquid diet today, ADAT - Continue PPI PO - Cont Ursodiol Pt seen and examined with Dr. Mg <Rubens Mg V - Last Filed: 03/28/18 23:43> Objective - Vital Signs/Intake and Output Vital Signs (last 24 hours): Temp Pulse Resp BP Pulse Ox 98.3 F 85 20 160/64 H 97 03/27/18 07:30 03/27/18 17:15 03/27/18 07:30 03/27/18 17:15 03/27/18 07:30 - Medications Medications: Current Medications Quetiapine Fumarate (Seroquel) 100 mg PO HS [facility] PRN Reason: Protocol Zaleplon (Sonata) 5 mg PO HS PRN PRN Reason: Insomnia - Labs Labs: 03/27/18 05:45 03/27/18 05:45 PT 10.9 SECONDS (9.4-12.5) 03/23/18 17:10 INR 0.96 (0.93-1.08) 03/23/18 17:10 APTT 28.1 Seconds (25.1-36.5) 03/23/18 17:10 Attending/Attestation - Attestation I have personally seen and examined this patient.: Yes I have fully participated in the care of the patient.: Yes I have reviewed all pertinent clinical information, including history, physical exam and plan: Yes Notes (Text): This is a delayed addendum to GI progress report dictated by the GI Fellow.The patient was seen and examined earlier. Medical records, lab studies, imagings were reviewed. Last 24 hours events reviewed. Agreed with the above treatment plan as outlined in GI Fellow 's notes the with the addition of the following 03/28/18 23:42
[2018-03-27] MEDS: Insulin Reg-LOW-Coverage SC SCH ×3 (08:07→17:15)
[2018-03-27] MEDS: POLYETHYLENE GLYCOL 3350 17 GM/Dose PACKET PO SCH (10:01)
[2018-03-27] MEDS: Docusate-Senna 50 mg-8.6 mg Tab PO SCH (10:02)
[2018-03-27 10:06] VITALS: RESP 20; TEMP 98.3
--- NOTE | 2018-03-27 11:03 | PN ---
DATE: 03/27/2018 CARDIOLOGY FOLLOWUP SUBJECTIVE: The patient is now complaining of diarrhea since giving laxatives for her constipation yesterday. She is chest pain free. OBJECTIVE: VITAL SIGNS: Blood pressure is 136/70 after p.o. clonidine, heart rate is in the 80s. NECK: Negative JVD. LUNGS: Without rales. HEART: Reveal S1, S2. EXTREMITIES: Without edema. LABORATORY DATA: Hemoglobin is 9.7. Chemistries: BUN and creatinine are unremarkable. IMPRESSION: 1. Stable angina. 2. Coronary artery disease. 3. History of percutaneous transluminal coronary angioplasty and stent with bare-metal stents. 4. Diabetes mellitus. 5. Hypertension. 6. Diarrhea. Given these findings, we will add clonidine 0.1 b.i.d. for better blood pressure control. Her cardiac status remain stable. Binh Bridges MD
--- NOTE | 2018-03-27 12:22 | PN ---
FINAL PROGRESS NOTE & DISCHARGE SUMMARY DATE: 03/27/2018 SUBJECTIVE: The patient is seen in room 362, bed 1. The patient is seen lying in the bed. The patient denies any constipation now. The patient had a few bowel movements which were initially tarry, then the patient's bowel movements are now softer and clearer. OBJECTIVE: VITAL SIGNS: T-max 98.3; pulse down to 87, pulse was up to 103 yesterday; blood pressure yesterday was 178/94, 180/87, 178/94, now it is down to 130/64, 136/70. HEENT: Head: Normocephalic, atraumatic. Pinkish pale conjunctivae. Anicteric sclerae. No oropharyngeal lesion. NECK: No neck rigidity. CHEST: Symmetrical. LUNGS: Show no rales, crackles, or wheezing. CARDIOVASCULAR: S1 and S2, regular rhythm. No audible murmur, gallop, or rub. Questionable soft systolic murmur in the left sternal border, left second intercostal space, and right second intercostal space. ABDOMEN: Soft, less protuberant, nontender. GENITALIA: Female. RECTAL: Deferred. EXTREMITIES: Show positive BRANDAN stockings. No pitting edema noted. MUSCULOSKELETAL: Shows a body mass index of 35. NEUROLOGIC: The patient is alert, awake, and oriented x3. Still able to move upper and lower extremities without assistance. Gait examination is independent. DIAGNOSTICS: 03/27/2018: WBC 5.3, hemoglobin and hematocrit 9.7 and 30.3, and platelets 229. Sodium 140, potassium 3.8, chloride 101, CO2 of 29, anion gap 14. BUN 9, creatinine 1. GFR greater than 60. Glucose 190, 187. Calcium 9.6, magnesium 1.9. AST 40, lipase is down to 435. Stool occult blood negative. Blood type O+. Chest x-ray yesterday was done for evaluation of atelectasis and was negative for atelectasis. FINAL IMPRESSION & PLAN AND DISCHARGE DIAGNOSES: 1. Status post melena and lower gastrointestinal bleeding. 2. Constipation. 3. Questionable acute pancreatitis. 4. Melanotic stool with lower gastrointestinal bleeding. 5. Tachycardia. 6. Hypertension. 7. Anemia. 8. Insulin-requiring diabetes mellitus with hyperglycemia. 9. Hypokalemia. 10. Hypomagnesemia. 11. Questionable, possible, and probable pancreatitis with elevated lipase. 12. Atelectasis. 13. History of coronary artery disease, coronary angioplasty. 14. Nonvisualized pancreas. 15. Gallbladder sludge. 16. Hypertensive cardiovascular disease. 17. 18. Obesity with elevated body mass index. 18. History of hypertension. 19. Bibasilar atelectasis and scarring. 20. Coronary artery calcification. 21. Hepatic calcification. 22. Gallbladder sludge. 23. Mild peripancreatic inflammation. 24. Bilateral adrenal gland nodular thickening. 25. Renal cyst. 26. Moderate-sized hiatal hernia. 27. Sigmoid colon diverticulosis. 28. Multifocal descending aortic aneurysmal dilatation with irregular calcified and noncalcified plaque with focal areas of pouching of the thoracic aorta and largest dimension of thoracic aorta is 3.9 cm. 29. Infrarenal partially thrombosed aneurysm, unchanged. 30. Iliac artery extensive calcific plaque. 31. Irregular calcification enhancement surrounding the right common femoral artery with surrounding area soft tissue stranding. 32. Osteopenia with left iliac bone lucency. 33. 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 34. L4-L5 anterolisthesis. 35. Left breast punctate calcification. PLAN: At this time, the patient has been ordered repeated labs in the morning. The patient has been followed by Gastroenterology, Cardiology, and the patient has been requested Psychiatry evaluation for clearance for Transitional Care Unit. The patient has been started on heart-healthy diet by the pen maker today. The patient's IV fluid will be discontinued. The patient is started on Actigall 300 twice a day, clonidine 0.1 mg every 6 hours p.r.n., Claritin 10 mg daily, Cymbalta 60 mg daily, DuoNeb nebulizer every 6 hours, Ecotrin 81 mg daily, Humulin low-dose sliding scale coverage before meals and at bedtime, Lipitor 40 mg daily, MiraLax 17 g daily to be started from tomorrow, morphine 1 mg IV every 8 hours p.r.n., simethicone 80 mg p.o. after meals and at bedtime p.r.n., Periactin 4 mg daily, Protonix 40 mg daily, Seroquel 300 mg at bedtime, Zestril 20 mg twice a day, and allopurinol 300 mg daily. Chest PT ordered. Heart-healthy diet has been ordered by Gastroenterology. Out of bed, BRANDAN nickerson, SCDs, physical therapy, occupational therapy ordered. The patient updated about her condition, diagnosis, treatment plan, management plan at length. All questions concerned answered. The patient will be considered for transfer to TCU if accepted and if the patient is agreeable. PATIENT ACCEPTED TO TCU PATIENT TO BE DISCHARGED TO TCU Dictated and electronically signed, not read. Jack Anderson MD MTDJose Antonio
--- NOTE | 2018-03-27 13:59 | CP.PCM.PCO ---
Physician Communication Note - Physician Communication Note Physician Communication Note: Per Dr. De La Curz, psychiatrist, patient cleared from psychiatric standpoint .
[2018-03-27 17:17] VITALS: BP 160/64; PULSE 85
--- NOTE | 2018-03-27 18:19 | CON ---
DATE: 03/27/2018 HISTORY OF PRESENT ILLNESS: In short, the patient is an 87-year-old female with history of coronary artery disease, irritable bowel syndrome, diabetes, constipation, hypertension, hyperlipidemia. The patient presents to emergency room department complaining of black tarry bowel movement and the patient was admitted on the medical site for evaluation of bleeding. Psych consult was called for evaluation of medication. The patient is on psychotropic medication that is why this aligner typewriter got involved. The patient was seen and examined. The patient reported that she is seeing nurse practitioner, Marcello Curiel at [facility]. The patient reported that in 1967, she had hysterectomy and she was started on Seroquel. The patient reported that she had "nervous breakdown." The patient reported that she is on Seroquel and Cymbalta for really long time and she is seeing psychiatrist on monthly basis. The patient reported she is not sure why she is on Seroquel and the patient thought that it is sleepy medication. This aligner typewriter educated the patient about risks, benefits and alternatives and the patient was in agreement to start tapering that medication down. Considering the fact that the patient has diabetes, the patient has history of pancreatitis, it will be not safe for the patient to continue the Seroquel. We will try to wean the patient off from that medication and the hope that she will tolerate that well. The patient denied any psychotic symptoms. Denied history of being admitted to the psych unit. Vital signs are stable. Temperature 98.3, pulse is 87, blood pressure 130/64, respirations 20, oxygen saturation is 97. Medications reviewed. The patient is on DuoNeb, allopurinol, aspirin, Lipitor, Catapres, Cymbalta 60 mg daily, Humulin, Zestril, Claritin, morphine, Protonix, MiraLax, Seroquel 300 mg which will be decreased to 200 mg at the nighttime with a plan to wean it off, simethicone and Actigall. Labs were reviewed. Most recent was from today. The patient has lipase of 435. Hematology also reviewed. Hemoglobin 9.7, hematocrit 30.3. Chemistry reviewed. is negative. MENTAL STATUS EXAMINATION: The patient appears to be alert and oriented, pleasant, cooperative. Good historian. Good eye contact. Mood described as I am feeling fine. Affect was reactive, mood congruent. Thought process coherent and goal directed. Thought content, the patient denied visual, auditory or tactile hallucinations. Denied paranoid ideation. The patient does not present to be psychotic or paranoid. Insight and judgment seems to be improving. Impulses are well controlled. IMPRESSION: Most likely, the patient has history of mood spectrum disorder. We will continue Cymbalta as it is, but Seroquel will be started tapering down. PLAN: The patient is cleared for TCU unit. This aligner typewriter will monitor the patient on tapering dose of Seroquel. The patient is cleared for Transitional Care Unit transfer. We will follow up and advise accordingly. You very much for letting me participate in the care of your patient. Dorothy Nolasco MD
[2018-03-28] MEDS ORDERED: POLYETHYLENE GLYCOL 3350 17 GM/Dose PACKET PO SCH (10:00)
== END 2018-03-27 18:22 | DRG 438 ==
LOC: ED 16:07 → ERH 18:12 → 3RNO 20:50
PROVIDERS: ADMIT Internal Medicine; ATTEND Internal Medicine
DX: K85.90 Acute pancreatitis without necrosis or infection, unspecified (principal); N18.6 End stage renal disease; K25.4 Chronic or unspecified gastric ulcer with hemorrhage; K92.2 Gastrointestinal hemorrhage, unspecified; J98.11 Atelectasis; I13.11 Hypertensive heart and chronic kidney disease without heart failure, with stage 5 chronic kidney disease, or end stage renal disease; R00.0 Tachycardia, unspecified; E11.65 Type 2 diabetes mellitus with hyperglycemia; E87.6 Hypokalemia; I25.118 Atherosclerotic heart disease of native coronary artery with other forms of angina pectoris; I71.9 Aortic aneurysm of unspecified site, without rupture; K44.9 Diaphragmatic hernia without obstruction or gangrene; K57.30 Diverticulosis of large intestine without perforation or abscess without bleeding; K58.9 Irritable bowel syndrome, unspecified; K64.9 Unspecified hemorrhoids; M16.0 Bilateral primary osteoarthritis of hip; M47.816 Spondylosis without myelopathy or radiculopathy, lumbar region; M85.80 Other specified disorders of bone density and structure, unspecified site; N28.1 Cyst of kidney, acquired; D64.9 Anemia, unspecified; E11.22 Type 2 diabetes mellitus with diabetic chronic kidney disease; E11.40 Type 2 diabetes mellitus with diabetic neuropathy, unspecified; E78.00 Pure hypercholesterolemia, unspecified; E78.5 Hyperlipidemia, unspecified; Z99.2 Dependence on renal dialysis; Z79.4 Long term (current) use of insulin; Z79.899 Other long term (current) drug therapy; Z87.891 Personal history of nicotine dependence; Z90.710 Acquired absence of both cervix and uterus; Z95.5 Presence of coronary angioplasty implant and graft

== ENCOUNTER 2018-03-27 18:27 | Inpatient (IN) | payer OTHER ==
[2018-03-27 19:28] VITALS: BMI 36.8
[2018-03-27] MEDS ORDERED: Pneumococcal 23-Valent Vaccine IM ONE (20:16)
[2018-03-27] MEDS: Albuterol-Ipratrop 3 mg / 0.5 (3 ml) UD IH SCH (21:41)
[2018-03-27] MEDS: Insulin Reg-LOW-Coverage SC SCH (22:13)
[2018-03-27] MEDS: Simethicone 80 mg Chewtab PO PRN (22:16)
[2018-03-28] MEDS: Albuterol-Ipratrop 3 mg / 0.5 (3 ml) UD IH SCH ×5 (01:38→23:46)
[2018-03-28] MEDS: Pantoprazole 40 mg EC Tab PO SCH (06:56)
[2018-03-28] MEDS: Insulin Reg-LOW-Coverage SC SCH (06:57)
[2018-03-28] MEDS: POLYETHYLENE GLYCOL 3350 17 GM/Dose PACKET PO SCH (09:59)
--- NOTE | 2018-03-28 11:29 | CP.PCM.HP ---
History of Present Illness - History of Present Illness History of Present Illness: Cathleen Hanson, PGY2, H&P for Dr Anderson: CC: epigastric pain 87 year old female with PMH DM, IBS, HLD, CAD s/p recent RCA stent [id number], presents for epigastric pain and black tarry stools. Patient admitted for pancreatitis 2/2 biliary sludge. EGD and colonoscopy 01/2018 showed gastric erosions and hemorrhoids. GI consulted, hemoglobin remained stable, stopped plavix as patient completed 1 month after bare metal stent placement. No acute intervention done as patient stopped having melanotic stools in hospital. Patient treated adequately for pancreatitis with fluids, pain control. Patient now tolerating regular diet. Patient transferred to TCU for further rehab and management. Currently, patient states that she is doing well. Patient had a BM last night, brown and soft. Denies fevers, chills, nausea, vomiting, abdominal pain, leg swelling. 12 point ROS obtained and negative, except as per HPI. Past Medical History: Obesity, HTN, Cervical spine degenerative joint disease, Lumbar spine stenosis, HLD, Mild normacytic anemia, IDDM, diabetic neuropathy Past Surgical History: Hysterectomy Allergies: NKDA FH: noncontributory Social History: Denies alcohol, tobacco, drug use PMD: Dr Anderson Present on Admission - Present on Admission Any Indicators Present on Admission: No History of DVT/PE: No History of Uncontrolled Diabetes: No Urinary Catheter: No Decubitus Ulcer Present: No Review of Systems - Review of Systems All systems: reviewed and no additional remarkable complaints except Review of Systems: as per HPI Past Patient History - Past Medical History & Family History Past Medical History?: Yes - Past Social History Smoking Status: Former Smoker - CARDIAC Hx Cardiac Disorders: Yes Hx Hypertension: Yes - PULMONARY Hx Respiratory Disorders: No - NEUROLOGICAL Hx Neurological Disorder: No - HEENT Hx HEENT Problems: No - RENAL Hx Chronic Kidney Disease: No - ENDOCRINE/METABOLIC Hx Diabetes Mellitus Type 2: Yes - HEMATOLOGICAL/ONCOLOGICAL Hx Blood Disorders: Yes Hx Blood Transfusions: Yes Hx Blood Transfusion Reaction: No - INTEGUMENTARY Hx Dermatological Problems: No - MUSCULOSKELETAL/RHEUMATOLOGICAL Hx Falls: Yes (past) - GASTROINTESTINAL Hx Gastrointestinal Disorders: Yes (gi bleed) - GENITOURINARY/GYNECOLOGICAL Hx Reproductive Disorders: Yes (1967) - PSYCHIATRIC Hx Psychophysiologic Disorder: No Hx Emotional Abuse: No Hx Physical Abuse: No Hx Substance Use: No - SURGICAL HISTORY Hx Cardiac Catheterization: Yes (1 stent 02/07/18) Hx Hysterectomy: Yes (1967) - ANESTHESIA Hx Anesthesia: Yes Hx Anesthesia Reactions: No Hx Malignant Hyperthermia: No Meds Allergies/Adverse Reactions: Allergies Allergy/AdvReac Type Severity Reaction Status Date / Time No Known Allergies Allergy Verified 01/05/18 10:11 Physical Exam - Constitutional Appears: Non-toxic, No Acute Distress - Head Exam Head Exam: ATRAUMATIC, NORMOCEPHALIC - Eye Exam Eye Exam: EOMI, PERRL. absent: Conjunctival injection, Nystagmus, Scleral icterus Pupil Exam: NORMAL ACCOMODATION, PERRL. absent: Miosis, Mydriatic, Unequal - ENT Exam ENT Exam: Mucous Membranes Moist - Neck Exam Neck exam: Positive for: Normal Inspection - Respiratory Exam Respiratory Exam: Clear to Auscultation Bilateral, NORMAL BREATHING PATTERN. absent: Chest Wall Tenderness, Rales, Rhonchi, Respiratory Distress, Stridor - Cardiovascular Exam Cardiovascular Exam: RRR, +S1, +S2. absent: Systolic Murmur - GI/Abdominal Exam GI & Abdominal Exam: Normal Bowel Sounds, Soft. absent: Distended, Firm, Guarding, Organomegaly, Rebound, Tenderness - Extremities Exam Extremities exam: Positive for: normal inspection - Back Exam Back exam: NORMAL INSPECTION - Neurological Exam Neurological exam: Alert, Oriented x3 - Psychiatric Exam Psychiatric exam: Normal Affect, Normal Mood - Skin Skin Exam: Dry, Normal Color, Warm Results - Vital Signs Recent Vital Signs: Last Vital Signs Temp 97.2 F L 03/27/18 20:05 Pulse 75 03/27/18 21:42 Resp 16 03/27/18 20:05 BP 134/61 03/28/18 10:00 Pulse Ox - Labs Labs: Laboratory Results - last 24 hr 03/27/18 21:01 POC Glucose (mg/dL) 333 H Assessment & Plan - Assessment and Plan (Free Text) Assessment: 87 year old female with PMH DM, IBS, HLD, CAD s/p recent RCA stent , admitted for pancreatitis, GI bleed (now resolved). Patient transferred to TCU for rehab and further management: GI bleed: - EGD 01/2018: shows nonbleeding gastric ulcers, negative for H pylori. - Colonoscopy 01/2018 shows diverticulosis, hemorrhoids - Hgb stable - at baseline - No further melena episodes since admission. Patient having soft, brown BMs. - stopped plavix in hospital (completed 1 month of Plavix after bare metal stent placement) - GI on board. Appreciate recs. Acute pancreatitis: - resolved - heart healthy diet - GI consult appreciated - Abd US shows gallbladder sludge. Pancreas not visualized due to bowel gas. - CT abd pelvis mild inflammatory changes around pancreas -pancreatitis? irregular calcifications /enhancement surrounding R common femoral artery - underlying hematoma/pseudoaneurysm. US eval? multifocal aneurysmal dilatation involving descending aorta Constipation: - miralax bid - simethicone - monitor Hx of HTN: - continue hydralazine, zestril CAD s/p stent: - continue ASA - hold Plavix - Cardiology consulted. f/u recs. Enhancement on CT of Right femoral artery: - CT abd pelvis shows irregular calcifications /enhancement surrounding R common femoral artery - underlying hematoma/pseudoaneurysm. US eval? - arterial doppler negative for aneurysm Diabetes mellitus II - ISS increased to medium - hgbA1C - BG ACHS PPX: protonix, scds Case seen and discussed with Dr Anderson. Cathleen Hanson, PGY2
[2018-03-28] MEDS: Insulin Lispro (humaLOG) MEDIUM Coverage SC SCH ×3 (12:39→21:43)
--- NOTE | 2018-03-28 12:44 | CP.PCM.PN ---
Subjective - Date & Time of Evaluation Date of Evaluation: 03/28/18 Time of Evaluation: 09:55 - Subjective Subjective: GI Covering note for Dr. Cleveland S&E at bedside, chart reviewed. No acute overnight events reported. Participating in PT. Took laxative this am to aid in BM. No reports of any bleeding. Tolerating oral intake well. Objective - Vital Signs/Intake and Output Vital Signs (last 24 hours): Temp Pulse Resp BP Pulse Ox 97.2 F L 75 16 134/61 03/27/18 20:05 03/27/18 21:42 03/27/18 20:05 03/28/18 10:00 - Medications Medications: Current Medications Albuterol/Ipratropium (Duoneb 3 Mg/0.5 Mg (3 Ml) Ud) 3 ml IH [id number] MOJGAN PRN Reason: Protocol Last Admin: 03/28/18 07:23 Dose: 3 ml Allopurinol (Zyloprim) 300 mg PO DAILY MOJGAN PRN Reason: Protocol Last Admin: 03/28/18 10:00 Dose: 300 mg Aspirin (Ecotrin) 81 mg PO 0800 MOJGAN PRN Reason: Protocol Last Admin: 03/28/18 08:23 Dose: 81 mg Atorvastatin Calcium (Lipitor) 40 mg PO DIN MOJGAN PRN Reason: Protocol Clonidine HCl (Catapres) 0.1 mg PO Q6H PRN PRN Reason: Systolic Blood Pressure Cyproheptadine HCl (Periactin) 4 mg PO DAILY MOJGAN PRN Reason: Protocol Last Admin: 03/28/18 10:00 Dose: 4 mg Duloxetine HCl (Cymbalta) 60 mg PO DAILY MOJGAN PRN Reason: Protocol Last Admin: 03/28/18 09:59 Dose: 60 mg Insulin Human Lispro (Humalog Med) 0 units SC ACHS MOJGAN PRN Reason: Protocol Lisinopril (Zestril) 20 mg PO BID MOJGAN PRN Reason: Protocol Last Admin: 03/28/18 10:00 Dose: 20 mg Loratadine (Claritin) 10 mg PO DAILY MOJGAN PRN Reason: Protocol Last Admin: 03/28/18 09:59 Dose: 10 mg Pantoprazole Sodium (Protonix Ec Tab) 40 mg PO 0600 MOJGAN PRN Reason: Protocol Last Admin: 03/28/18 06:56 Dose: 40 mg Polyethylene Glycol (Miralax) 17 gm PO DAILY MOJGAN PRN Reason: Protocol Last Admin: 03/28/18 09:59 Dose: 17 gm Quetiapine Fumarate (Seroquel) 200 mg PO HS MOJGAN PRN Reason: Protocol Last Admin: 03/27/18 21:55 Dose: 200 mg Simethicone (Mylicon Chew Tab) 80 mg PO PCHS PRN; Protocol PRN Reason: GI distress Last Admin: 03/27/18 22:16 Dose: 80 mg Ursodiol (Actigall) 300 mg PO 0800,1700 MOJGAN PRN Reason: Protocol Last Admin: 03/28/18 08:23 Dose: 300 mg - Constitutional Appears: No Acute Distress - Head Exam Head Exam: NORMOCEPHALIC - Eye Exam Eye Exam: Normal appearance. absent: Scleral icterus - ENT Exam ENT Exam: Mucous Membranes Moist - Neck Exam Neck Exam: Normal Inspection - Respiratory Exam Respiratory Exam: NORMAL BREATHING PATTERN. absent: Respiratory Distress - Cardiovascular Exam Cardiovascular Exam: +S1, +S2 - GI/Abdominal Exam GI & Abdominal Exam: Soft, Normal Bowel Sounds. absent: Guarding, Tenderness, Rebound - Extremities Exam Extremities Exam: absent: Calf Tenderness - Neurological Exam Neurological Exam: Alert, Awake, Oriented x3 - Skin Skin Exam: Dry, Warm Assessment and Plan - Assessment and Plan (Free Text) Assessment: Assessment: Abdominal Pain Resolved Melena Resolved Pancreatitis Gastric Erosions Internal Hemorrhoids HTN HLD Plan: continue diet as tolerated on heart healthy continue PPI monitor H/H and for overt GI bleeding, hgb steady on Ursodiol on Miralax, hold for BM>2/day/diarrhea Seen and examined with Dr. Mg who is covering for Dr. Cleveland.
--- NOTE | 2018-03-28 14:03 | PN ---
DATE: 03/28/2018 SUBJECTIVE: The patient was initially seen yesterday. Please see consultation note for more detailed information. The patient agreed with a plan to decrease the dose of Seroquel. More over, the patient is not psychotic. The patient is not depressed and there is no necessity for the patient to continue that medication. More over, the patient has elevated lipase and Seroquel could give pancreatitis. On top of that, metabolic syndrome. The patient has history of diabetes and obesity. This expert medical writer started to taper down Seroquel yesterday from 300 mg to 200 mg. The patient was followed up today. The patient reported that she did not notice any changes with the medications. The patient reported that she feels little bit better to compare with the time of admission. This expert medical writer again educated the patient about the plan. The patient was in agreement with that plan. Sonata will be ordered in case if the patient would have insomnia. Discussed with nursing staff. The patient is pleasant, cooperative. No signs of aggression or agitation. The patient with the medications and at the present moment, the patient is in TCU for physical therapy. Vital signs reviewed, seems to be stable. Temperature 97.2, pulse is 75, blood pressure is 134/61, respirations 16. Medications will be resumed. This expert medical writer resumed Cymbalta as well as Seroquel 100 mg at the nighttime with a plan to wean it off. The patient was in agreement with that plan. MENTAL STATUS EXAM: The patient appears to be alert and oriented, pleasant and cooperative. No signs of depression or psychosis. Mood described as feeling better. Affect was reactive, mood congruent. Thought process coherent and goal directed. Thought content, the patient denied visual, auditory, tactile hallucinations. Denied paranoid ideation. The patient denied thoughts of harming herself or others. Denies intent or plan. Insight and judgment seems to be fair. Impulses are well controlled. IMPRESSION: Mood spectrum disorder as per history. PLAN: We will wean off Seroquel, started Sonata, Cymbalta need to be continued. Should you have any questions, give me a call back. This expert medical writer will follow up on this patient and advise accordingly. Dorothy Nolasco MD [facility] # [id number]
[2018-03-28] MEDS ORDERED: Insulin Human NPH 1 UNITS/0.01 ML SC STA (21:33)
[2018-03-28] MEDS ORDERED: Dextrose 50% SYRINGE Inj (50 ml) IV PRN (21:37)
[2018-03-28] MEDS: Insulin Human NPH 1 UNITS/0.01 ML SC SCH (21:50)
[2018-03-29] MEDS: Albuterol-Ipratrop 3 mg / 0.5 (3 ml) UD IH SCH ×4 (02:13→20:08)
[2018-03-29] MEDS: Pantoprazole 40 mg EC Tab PO SCH (05:25)
[2018-03-29 07:23] LABS: BASO # 0.03 K/mm3 (0.0-2.0); BASO % 0.6 % (0.0-3.0); EOS # 0.3 (0.0-0.7); EOS % 5.6 % (1.5-5.0); GRAN % 55.9 % (50.0-68.0); LYMPH # 1.6 (1.2-3.4); LYMPH % 28.9 % (22.0-35.0); MEAN CELL VOLUME 83.6 fl (80.0-105.0); MEAN CORPUSCULAR HEMOGLOBIN 26.9 pg (25.0-35.0); MEAN CORPUSCULAR HGB CONC 32.1 g/dl (31.0-37.0); MEAN PLATELET VOLUME 10.9 fl (7.0-11.0); MONO # 0.5 (0.1-0.6); RBC 3.35 10^6/uL (3.5-6.1); RED CELL DISTRIBUTION WIDTH 16.1 % (11.5-14.5); WHITE BLOOD COUNT 5.4 10^3/ul (4.5-11.0)
[2018-03-29 07:25] LABS: ALB/GLOB RATIO 1.1 (1.1-1.8); ALT/SGPT 33 U/L (7-56); AMYLASE 111 U/L (35-125); AST/SGOT 37 U/L (14-36); BILIRUBIN,DIRECT 0.1 mg/dL (0.0-0.4); BLOOD UREA NITROGEN 12 mg/dL (7-21); CALCIUM 9.7 mg/dL (8.4-10.5); GFR AFRICAN-AMERICAN > 60; GFR NON-AFRICAN AMERICAN 59; LIPASE 563 U/L (23-300); URIC ACID 3.6 mg/dL (2.5-6.2)
[2018-03-29] MEDS: Insulin Lispro (humaLOG) MEDIUM Coverage SC SCH ×4 (07:41→22:04)
[2018-03-29] MEDS: Insulin Human NPH 1 UNITS/0.01 ML SC SCH ×2 (07:42→22:08)
--- NOTE | 2018-03-29 08:18 | HP ---
HISTORY OF PRESENT ILLNESS: The patient is seen sitting up in the bed in room 327 bed 2. The patient's overnight nurse's notes were reviewed. No adverse events were documented. The patient at present is having her lunch. The patient does not appear to be any distress. REVIEW OF SYSTEMS: The 13-system review was done. The patient is complaining of belching. The patient denies any chest pain or shortness of breath. Denies nausea, vomiting, diarrhea. Denies hemoptysis, hematemesis, melena. Denies hematochezia. OBJECTIVE: VITAL SIGNS: T-max is 97.2, heart rate 75, blood pressure is now improved to 134/64 and 135/74, respirations 16, O2 saturation is . HEENT: Head examination, normocephalic and atraumatic. HEENT examination shows pinkish pale conjunctivae. Anicteric sclerae. No oropharyngeal lesion. No neck rigidity. CHEST: Symmetrical. LUNGS: Shows no rales, crackles or wheezing. CARDIOVASCULAR: S1, S2. Regular rhythm. Questionable soft systolic murmur, left sternal border, left second intercostal space. ABDOMEN: Soft. Positive bowel sounds. Protuberant abdomen. No guarding. No rigidity. No rebound tenderness. GENITALIA: Female. RECTAL: Deferred. EXTREMITIES: Shows no pitting edema, no calf tenderness, no Julián's sign. NEUROLOGIC: The patient is alert, awake, oriented x3. Motor strength is 5/5 in upper and lower extremities. Gait examination is not tested. MUSCULOSKELETAL: Shows a body mass index of 37. DIAGNOSTICS None from today. Fingerstick blood sugar 333, 350. IMPRESSION AND PLAN: 1. Deconditioning. 2. Gait dysfunction. 3. Most probable diabetic gastroparesis, symptomatic with symptoms of belching. 4. Status post melena and lower gastrointestinal bleeding. 5. Constipation. 6. Questionable acute pancreatitis. 7. History of hypertension. 8. History of coronary artery disease, status post coronary angioplasty. 9. Insulin-requiring diabetes mellitus. 10. Constipation. 11. History of anxiety and depression. 12. Probable history of mood spectrum disorder. 13. Hyperglycemia. 14. Gallbladder sludge. 15. Diabetic neuropathy. 16. Probable diabetic gastroparesis. 17. Hyperlipidemia. 18. History of anorexia. 19. Hyperuricemia. PLAN: At this time, the patient is to be continued on Transitional Care Unit with daily physical therapy, occupational therapy, ambulation therapy, gait training. The patient will have repeat labs in the morning. CURRENT CONSULTATIONS: GI, Psychiatry. CURRENT MEDICATIONS: 1. Actigall 300 mg twice a day. 2. Clonidine 0.1 mg every 6 hours p.r.n. 3. Claritin 10 mg daily. 4. Cymbalta 60 mg daily. 5. DuoNeb nebulizer every 6 hours. 6. Ecotrin 81 mg daily. 7. Humalog medium dose sliding scale coverage before meals and at bedtime. 8. Lipitor 40 mg daily. 9. MiraLax 17 g daily. 10. Simethicone 80 mg after meals and at bedtime p.r.n. 11. Periactin 4 mg daily. 12. Protonix 40 mg daily. 13. The patient is started on Reglan 5 mg IV before meals and at bedtime. 14. The patient is on Seroquel 200 at bedtime. 15. Zestril 20 mg twice a day. 16. Zofran 4 mg IV every 4 hours p.r.n. 17. Allopurinol 300 mg daily. The patient is on heart-healthy diet, BRANDAN stockings, Physical therapy and occupational therapy are ordered. The patient will be continued on the above therapeutic intervention. The patient will continue on daily physical therapy, daily ambulation therapy, daily gait training. The patient will be ordered out of bed to chair. The patient will be started on basal insulin NPH 10 units before meals and at bedtime because of elevated fingerstick blood sugar. Dictated and electronically signed, not read. Jack Anderson MD
[2018-03-29] MEDS: POLYETHYLENE GLYCOL 3350 17 GM/Dose PACKET PO SCH (09:00)
--- NOTE | 2018-03-29 11:33 | CP.PCM.PN ---
Subjective - Date & Time of Evaluation Date of Evaluation: 03/29/18 Time of Evaluation: 11:30 - Subjective Subjective: Cathleen Hanson, PGY2, Medicine Progress Note for Dr Anderson: Patient seen and examined at bedside. No acute events overnight. Denies fevers, chills, nausea, vomiting, weakness, abdominal pain, leg swelling, urinary symptoms. Objective - Vital Signs/Intake and Output Vital Signs (last 24 hours): Temp Pulse Resp BP Pulse Ox 98.4 F 100 H 18 118/64 96 03/29/18 10:00 03/29/18 10:00 03/29/18 10:00 03/29/18 10:00 03/29/18 10:00 - Medications Medications: Current Medications Albuterol/Ipratropium (Duoneb 3 Mg/0.5 Mg (3 Ml) Ud) 3 ml IH [id number] MOJGAN PRN Reason: Protocol Last Admin: 03/29/18 07:10 Dose: 3 ml Aspirin (Ecotrin) 81 mg PO 0800 MOJGAN PRN Reason: Protocol Last Admin: 03/29/18 08:47 Dose: 81 mg Atorvastatin Calcium (Lipitor) 40 mg PO DIN [facility] PRN Reason: Protocol Last Admin: 03/28/18 17:33 Dose: 40 mg Clonidine HCl (Catapres) 0.1 mg PO Q6H PRN PRN Reason: Systolic Blood Pressure Cyproheptadine HCl (Periactin) 4 mg PO DAILY [facility] PRN Reason: Protocol Last Admin: 03/29/18 09:00 Dose: 4 mg Dextrose (Dextrose 50% Inj) 0 ml IV STAT PRN; Protocol PRN Reason: Hypoglycemia Protocol Duloxetine HCl (Cymbalta) 60 mg PO DAILY [facility] PRN Reason: Protocol Last Admin: 03/29/18 08:59 Dose: 60 mg Dextrose (Dextrose 5% In Water 1000 Ml) 1,000 mls @ 0 mls/hr IV .Q0M PRN; Protocol; Per Protocol PRN Reason: Hypoglycemia Protocol Insulin Human Lispro (Humalog Med) 0 units SC ACHS [facility] PRN Reason: Protocol Last Admin: 03/29/18 07:41 Dose: 5 units Insulin Human NPH (Humulin N) 10 units SC ACB [facility] Last Admin: 03/29/18 07:42 Dose: 10 units Insulin Human NPH (Humulin N) 10 units SC HS [facility] Last Admin: 03/28/18 21:50 Dose: 10 units Lisinopril (Zestril) 20 mg PO BID [facility] PRN Reason: Protocol Last Admin: 03/29/18 08:59 Dose: 20 mg Loratadine (Claritin) 10 mg PO DAILY [facility] PRN Reason: Protocol Last Admin: 03/29/18 09:01 Dose: 10 mg Metoclopramide HCl (Reglan) 5 mg IVP ACHS [facility] Last Admin: 03/29/18 08:47 Dose: 5 mg Ondansetron HCl (Zofran Inj) 4 mg IVP Q4H PRN PRN Reason: Nausea/Vomiting Pantoprazole Sodium (Protonix Ec Tab) 40 mg PO 0600 [facility] PRN Reason: Protocol Last Admin: 03/29/18 05:25 Dose: 40 mg Polyethylene Glycol (Miralax) 17 gm PO DAILY [facility] PRN Reason: Protocol Last Admin: 03/29/18 09:00 Dose: 17 gm Quetiapine Fumarate (Seroquel) 50 mg PO [facility] PRN Reason: Protocol Simethicone (Mylicon Chew Tab) 80 mg PO [facility] PRN; Protocol PRN Reason: GI distress Last Admin: 03/27/18 22:16 Dose: 80 mg Ursodiol (Actigall) 300 mg PO 0800,1700 [facility] PRN Reason: Protocol Last Admin: 03/29/18 08:47 Dose: 300 mg Zaleplon (Sonata) 5 mg PO PRN PRN Reason: Insomnia - Labs Labs: 03/29/18 06:50 03/29/18 06:50 - Additional Findings Additional findings: - Constitutional Appears: Non-toxic, No Acute Distress - Head Exam Head Exam: ATRAUMATIC, NORMOCEPHALIC - Eye Exam Eye Exam: EOMI, PERRL. absent: Conjunctival injection, Nystagmus, Scleral icterus Pupil Exam: NORMAL ACCOMODATION, PERRL. absent: Miosis, Mydriatic, Unequal - ENT Exam ENT Exam: Mucous Membranes Moist - Neck Exam Neck exam: Positive for: Normal Inspection - Respiratory Exam Respiratory Exam: Clear to Auscultation Bilateral, NORMAL BREATHING PATTERN. absent: Chest Wall Tenderness, Rales, Rhonchi, Respiratory Distress, Stridor - Cardiovascular Exam Cardiovascular Exam: RRR, +S1, +S2. absent: Systolic Murmur - GI/Abdominal Exam GI & Abdominal Exam: Normal Bowel Sounds, Soft. absent: Distended, Firm, Guarding, Organomegaly, Rebound, Tenderness - Extremities Exam Extremities exam: Positive for: normal inspection - Back Exam Back exam: NORMAL INSPECTION - Neurological Exam Neurological exam: Alert, Oriented x3 - Psychiatric Exam Psychiatric exam: Normal Affect, Normal Mood - Skin Skin Exam: Dry, Normal Color, Warm Assessment and Plan - Assessment and Plan (Free Text) Assessment: 87 year old female with PMH DM, IBS, HLD, CAD s/p recent RCA stent , admitted for pancreatitis, GI bleed (now resolved). Patient transferred to TCU for rehab and further management: GI bleed: - EGD 01/2018: shows nonbleeding gastric ulcers, negative for H pylori. - Colonoscopy 01/2018 shows diverticulosis, hemorrhoids - Hgb stable - at baseline - No further melena episodes since admission. Patient having soft, brown BMs. - stopped plavix in hospital (completed 1 month of Plavix after bare metal stent placement) - GI on board. Appreciate recs. Acute pancreatitis: - resolved - heart healthy diet - GI consult appreciated - Abd US shows gallbladder sludge. Pancreas not visualized due to bowel gas. - CT abd pelvis mild inflammatory changes around pancreas -pancreatitis? irregular calcifications /enhancement surrounding R common femoral artery - underlying hematoma/pseudoaneurysm. US eval? multifocal aneurysmal dilatation involving descending aorta Constipation: - miralax bid - simethicone - monitor Hx of HTN: - continue hydralazine, zestril CAD s/p stent: - continue ASA - hold Plavix - Cardiology consulted. f/u recs. Enhancement on CT of Right femoral artery: - CT abd pelvis shows irregular calcifications /enhancement surrounding R common femoral artery - underlying hematoma/pseudoaneurysm. US eval? - arterial doppler negative for aneurysm Diabetes mellitus II - ISS increased to medium - hgbA1C - BG ACHS PPX: protonix, scds Case seen and discussed with Dr Anderson. Cathleen Hanson, PGY2
--- NOTE | 2018-03-29 12:34 | PN ---
DATE: 03/29/2018 FOLLOWUP NOTE SUBJECTIVE: Shortly, the patient is an 87-year-old female with history of mood disorder and anxiety. The patient was admitted on the medical site for blood in her stool. Right now, the patient is in TCU unit. This publicity writer got involved into the patient's care because the patient was on 300 mg of Seroquel at the nighttime and medication management. Based on history, Seroquel was started more than 10 years ago for unknown reason and the patient was taking it regularly. The patient has nurse practitioner at [facility], patient reports that she does not have history of hearing voices, seeing things. Moreover, the patient was found to have pancreatitis, diabetes. This publicity writer started to wean off Seroquel and the patient tolerates medications well. So far, the patient is down on Seroquel 50 mg at the nighttime and tolerated well. The patient reported that she has good night sleep. Denied feeling depressed. Denied feeling hopeless or helpless. Vital signs are stable. Temperature is 98.2, pulse is 95, blood pressure 147/66, respirations 18, oxygen saturation is 95. Medications reviewed. DuoNeb, allopurinol, aspirin, Lipitor, Catapres, cyproheptadine, dextrose, Cymbalta 60 mg daily, Claritin, Zofran, Protonix, MiraLax, Seroquel 50 mg at the nighttime with a plan to wean it off and Sonata 5 mg at the nighttime as needed for insomnia. Hematology reviewed. Chemistry reviewed. Lipase is 563, which is trending down. MENTAL STATUS EXAMINATION: The patient appears to be alert and oriented, pleasant and cooperative. Good eye contact. Speech was normal rate, tone, quality and quantity. Mood described as I am fine. Affect was reactive, mood congruent. Thought process coherent and goal directed. Thought content, the patient denied visual, auditory or tactile hallucinations. Denied paranoid ideation. The patient does not present to be psychotic. Insight and judgment seems to be fair. Impulses are well controlled. The patient adamantly denied thoughts of harming herself or others. IMPRESSION: Mood disorder, not otherwise specified; anxiety disorder, not otherwise specified. PLAN: This publicity writer will discontinue Seroquel. She is on tapering dose of Seroquel 50 mg at the nighttime. Dr. Bush will be advised to decrease that further as well as Sonata was started in case of insomnia. Please be aware that the patient had pancreatitis. Seroquel could give pancreatitis and metabolic syndrome. The patient has diabetes and pancreatitis and it was not safe to continue it. Meanwhile, continue current management pt is on tapering dose of seroquel, today 50mg po hs, with the plan to d/c tomorrow. After pt weaning off from the Seroquel, we can see the patient every other day. Case was discussed with Dr. Anderson yesterday. The patient pose no imminent danger to self or others. Should you have any questions, give me a call back. Dorothy Nolasco MD MTDJose Antonio
--- NOTE | 2018-03-29 13:17 | PN ---
DATE: 03/29/2018 SUBJECTIVE: The patient is seen sitting up in the bed in room 327, bed 2. The patient is alert, awake, responsive. The patient denies any chest pain. Denies shortness of breath. Denies constipation. Denies diarrhea. Denies melena, denies hematochezia. A 13-system review was done, pertinent positive, negative as dictated above. PHYSICAL EXAMINATION: VITAL SIGNS: T-max 98.4, pulse 97-100, 118/64, 116/60, respiration 18, O2 sat 96%. HEAD: Normocephalic, atraumatic. HEENT examination shows pinkish pale conjunctivae. Anicteric sclerae. No oropharyngeal lesion. No neck rigidity. CHEST: Kyphosis. LUNGS: Shows no rales, crackles or wheezing. CARDIOVASCULAR: S1, S2, regular rhythm. Questionable soft systolic murmur, left sternal border, left second intercostal space, right second intercostal space. ABDOMEN: Soft, protuberant. Positive bowel sounds. GENITALIA: Female. RECTAL: Deferred. EXTREMITY: Shows positive BRANDAN stockings. MUSCULOSKELETAL: Shows a body mass index of 37. NEUROLOGIC: Cranial nerves II-XII limited. Gait examination is independent. VASCULAR: Palpable pulses. DIAGNOSTICS: On 03/29/2018: WBC 5.4, hemoglobin/hematocrit 9 and 28, platelets, 217. Fingerstick blood sugar 172, 283, 293, 266, 268. Hemoglobin A1c 9, uric acid is 3.6. Sodium 136, potassium 4.5, chloride 102, CO2 of 28, anion gap 11, BUN 12, creatinine 0.9, GFR greater than 60, glucose 268, uric acid 3.6, calcium 9.7, magnesium 1.9. LFTs, AST 37. Rest of the LFTs are normal. Amylase is normal. Lipase is 563 which has come down. IMPRESSION AND PLAN: 1. Deconditioning. 2. Gait dysfunction. 3. Status post gastrointestinal bleeding with melena. 4. Probable diabetic gastroparesis, symptomatic, with symptoms of belching and nausea and heartburn. 5. Constipation. 6. Acute pancreatitis (resolving). 7. Hypertension. 8. Normocytic anemia. 9. Hyperglycemia with uncontrolled insulin-requiring diabetes mellitus with hemoglobin A1c of 9. 10. Obesity. 11. Metabolic syndrome. 12. Questionable drug- induced pancreatitis secondary to Seroquel. 13. Insomnia. 14. Mood spectrum disorder. 15. Gallbladder sludge. 16. Diabetic neuropathy. 17. Atelectasis. 18. History of coronary artery disease, history of coronary angioplasty. 19. Anorexia. 20. Hyperuricemia. At present, the patient's uric acid is very well-controlled, so allopurinol will be discontinued. PLAN: At this time, the patient is ordered serial labs, CMP, LFT, magnesium, amylase, lipase. Consultation with Gastroenterology, Psychiatry. CURRENT MEDICATIONS: Actigall 300 mg twice a day, clonidine 0.1 mg every 6 hours p.r.n., Claritin 10 mg daily, Cymbalta 60 mg daily, DuoNeb nebulizer every 6 hours, aspirin 81 mg daily, Humalog medium dose sliding scale coverage, NPH 10 units at bedtime, NPH 10 units with breakfast, Lipitor 40 mg daily, MiraLax 17 g daily, simethicone 80 mg after food at bedtime p.r.n., Periactin 4 mg daily, Protonix 40 mg daily, Reglan 5 mg IV before lunch and at bedtime, Seroquel has been tapered down now to 50 mg at bedtime, Sonata 5 mg at bedtime p.r.n., Zestril 20 mg twice a day, Zofran 4 mg IV every 4 hours p.r.n. The patient is on heart-healthy diet. The patient is on fingerstick blood sugar before lunch and at bedtime. BRANDAN nickerson, SCDs, occupational therapy, physical therapy ordered. Dictated and electronically signed, not read. Jack Anderson MD
[2018-03-30] MEDS: Pantoprazole 40 mg EC Tab PO SCH (05:48)
[2018-03-30] MEDS: Insulin Human NPH 1 UNITS/0.01 ML SC SCH ×2 (06:35→22:00)
[2018-03-30] MEDS: Insulin Lispro (humaLOG) MEDIUM Coverage SC SCH ×4 (06:36→22:01)
[2018-03-30 07:06] LABS: ALB/GLOB RATIO 1.1 (1.1-1.8); ALBUMIN 3.2 g/dL (3.0-4.8); ALT/SGPT 31 U/L (7-56); AMYLASE 104 U/L (35-125); AST/SGOT 37 U/L (14-36); BILIRUBIN,DIRECT 0.3 mg/dL (0.0-0.4); BLOOD UREA NITROGEN 12 mg/dL (7-21); CALCIUM 9.7 mg/dL (8.4-10.5); GFR AFRICAN-AMERICAN > 60; GFR NON-AFRICAN AMERICAN 59; LIPASE 610 U/L (23-300)
[2018-03-30] MEDS: Albuterol-Ipratrop 3 mg / 0.5 (3 ml) UD IH SCH ×4 (07:06→20:52)
--- NOTE | 2018-03-30 10:14 | CP.PCM.PN ---
Subjective - Date & Time of Evaluation Date of Evaluation: 03/30/18 Time of Evaluation: 09:20 - Subjective Subjective: GI covering note for Dr. Cleveland S&E at bedside, chart reviewed. No acute overnight events. No N/V or abdominal pain, no overt GI bleeding, no BM x2 days. Tolerating oral intake, No SOB or CP. Objective - Vital Signs/Intake and Output Vital Signs (last 24 hours): Temp Pulse Resp BP Pulse Ox 98.4 F 103 H 18 159/78 H 96 03/29/18 10:00 03/29/18 18:12 03/29/18 10:00 03/29/18 18:12 03/29/18 10:00 Intake and Output: 03/30/18 03/30/18 06:59 18:59 Intake Total 240 Output Total 500 Balance -260 - Medications Medications: Current Medications Albuterol/Ipratropium (Duoneb 3 Mg/0.5 Mg (3 Ml) Ud) 3 ml IH [id number] MOJGAN PRN Reason: Protocol Last Admin: 03/30/18 07:06 Dose: 3 ml Aspirin (Ecotrin) 81 mg PO 0800 MOJGAN PRN Reason: Protocol Last Admin: 03/30/18 08:30 Dose: 81 mg Atorvastatin Calcium (Lipitor) 40 mg PO DIN MOJGAN PRN Reason: Protocol Last Admin: 03/29/18 18:13 Dose: 40 mg Clonidine HCl (Catapres) 0.1 mg PO Q6H PRN PRN Reason: Systolic Blood Pressure Cyproheptadine HCl (Periactin) 4 mg PO DAILY MOJGAN PRN Reason: Protocol Last Admin: 03/29/18 09:00 Dose: 4 mg Dextrose (Dextrose 50% Inj) 0 ml IV STAT PRN; Protocol PRN Reason: Hypoglycemia Protocol Duloxetine HCl (Cymbalta) 60 mg PO DAILY MOJGAN PRN Reason: Protocol Last Admin: 03/29/18 08:59 Dose: 60 mg Dextrose (Dextrose 5% In Water 1000 Ml) 1,000 mls @ 0 mls/hr IV .Q0M PRN; Protocol; Per Protocol PRN Reason: Hypoglycemia Protocol Insulin Human Lispro (Humalog Med) 0 units SC ACHS MOJGAN PRN Reason: Protocol Last Admin: 03/30/18 06:36 Dose: 3 units Insulin Human NPH (Humulin N) 10 units SC ACB [facility] Last Admin: 03/30/18 06:35 Dose: 10 units Insulin Human NPH (Humulin N) 10 units SC HS [facility] Last Admin: 03/29/18 22:08 Dose: 10 units Lisinopril (Zestril) 20 mg PO BID [facility] PRN Reason: Protocol Last Admin: 03/29/18 18:12 Dose: 20 mg Loratadine (Claritin) 10 mg PO DAILY [facility] PRN Reason: Protocol Last Admin: 03/29/18 09:01 Dose: 10 mg Metoclopramide HCl (Reglan) 5 mg IVP ACHS [facility] Last Admin: 03/30/18 06:35 Dose: 5 mg Ondansetron HCl (Zofran Inj) 4 mg IVP Q4H PRN PRN Reason: Nausea/Vomiting Pantoprazole Sodium (Protonix Ec Tab) 40 mg PO 0600 [facility] PRN Reason: Protocol Last Admin: 03/30/18 05:48 Dose: 40 mg Polyethylene Glycol (Miralax) 17 gm PO DAILY [facility] PRN Reason: Protocol Last Admin: 03/29/18 09:00 Dose: 17 gm Quetiapine Fumarate (Seroquel) 50 mg PO HS [facility] PRN Reason: Protocol Last Admin: 03/29/18 22:11 Dose: 50 mg Simethicone (Mylicon Chew Tab) 80 mg PO [facility] PRN; Protocol PRN Reason: GI distress Last Admin: 03/27/18 22:16 Dose: 80 mg Ursodiol (Actigall) 300 mg PO 0800,1700 [facility] PRN Reason: Protocol Last Admin: 03/30/18 08:30 Dose: 300 mg Zaleplon (Sonata) 5 mg PO PRN PRN Reason: Insomnia - Labs Labs: 03/29/18 06:50 03/30/18 06:30 - Constitutional Appears: No Acute Distress - Eye Exam Eye Exam: Normal appearance. absent: Scleral icterus - ENT Exam ENT Exam: Mucous Membranes Moist - Neck Exam Neck Exam: Normal Inspection - Respiratory Exam Respiratory Exam: NORMAL BREATHING PATTERN. absent: Respiratory Distress - Cardiovascular Exam Cardiovascular Exam: +S1, +S2 - GI/Abdominal Exam GI & Abdominal Exam: Soft, Normal Bowel Sounds. absent: Guarding, Tenderness, Organomegaly, Rebound - Extremities Exam Extremities Exam: absent: Calf Tenderness, Pedal Edema - Neurological Exam Neurological Exam: Alert, Awake, Oriented x3 - Skin Skin Exam: Dry, Warm Assessment and Plan - Assessment and Plan (Free Text) Assessment: Assessment: Abdominal Pain Resolved Melena Resolved Pancreatitis, elevated lipase, fluctuating, patient is asymptomatic, abd US : GB sludge, pancreas not visualized, due to bowel gas. Gastric Erosions Internal Hemorrhoids HTN HLD Plan: continue diet as tolerated on heart healthy continue PPI monitor H/H and for overt GI bleeding, hgb steady on Ursodiol on Miralax, hold for BM>2/day/diarrhea, give extra dose today Seen and examined with Dr. Mg who is covering for Dr. Cleveland.
[2018-03-30] MEDS: POLYETHYLENE GLYCOL 3350 17 GM/Dose PACKET PO SCH (12:27)
--- NOTE | 2018-03-30 14:21 | CP.PCM.PN ---
Subjective - Date & Time of Evaluation Date of Evaluation: 03/30/18 Time of Evaluation: 10:00 - Subjective Subjective: Cathleen Hanson, PGY2, Medicine Progress Note for Dr Anderson: Patient seen and examined at bedside. No acute events overnight. Patient reports no BM for 2 days. Patient reports mild indigestion. Denies fevers, chills, nausea, vomiting, leg pain, abdominal pain. Objective - Vital Signs/Intake and Output Vital Signs (last 24 hours): Temp Pulse Resp BP Pulse Ox 98.4 F 90 18 174/77 H 96 03/29/18 10:00 03/30/18 11:04 03/29/18 10:00 03/30/18 11:04 03/29/18 10:00 Intake and Output: 03/30/18 03/30/18 06:59 18:59 Intake Total 240 Output Total 500 Balance -260 - Medications Medications: Current Medications Albuterol/Ipratropium (Duoneb 3 Mg/0.5 Mg (3 Ml) Ud) 3 ml IH [id number] MOJGAN PRN Reason: Protocol Last Admin: 03/30/18 13:26 Dose: 3 ml Aspirin (Ecotrin) 81 mg PO 0800 MOJGAN PRN Reason: Protocol Last Admin: 03/30/18 08:30 Dose: 81 mg Atorvastatin Calcium (Lipitor) 40 mg PO DIN MOJGAN PRN Reason: Protocol Last Admin: 03/29/18 18:13 Dose: 40 mg Clonidine HCl (Catapres) 0.1 mg PO Q6H PRN PRN Reason: Systolic Blood Pressure Cyproheptadine HCl (Periactin) 4 mg PO DAILY MOJGAN PRN Reason: Protocol Last Admin: 03/30/18 11:04 Dose: 4 mg Dextrose (Dextrose 50% Inj) 0 ml IV STAT PRN; Protocol PRN Reason: Hypoglycemia Protocol Duloxetine HCl (Cymbalta) 60 mg PO DAILY MOJGAN PRN Reason: Protocol Last Admin: 03/30/18 11:02 Dose: 60 mg Dextrose (Dextrose 5% In Water 1000 Ml) 1,000 mls @ 0 mls/hr IV .Q0M PRN; Protocol; Per Protocol PRN Reason: Hypoglycemia Protocol Insulin Human Lispro (Humalog Med) 0 units SC ACHS MOJGAN PRN Reason: Protocol Last Admin: 03/30/18 12:25 Dose: 5 units Insulin Human NPH (Humulin N) 10 units SC ACB [facility] Last Admin: 03/30/18 06:35 Dose: 10 units Insulin Human NPH (Humulin N) 10 units SC HS [facility] Last Admin: 03/29/18 22:08 Dose: 10 units Lisinopril (Zestril) 20 mg PO BID MOJGAN PRN Reason: Protocol Last Admin: 03/30/18 11:04 Dose: 20 mg Loratadine (Claritin) 10 mg PO DAILY [facility] PRN Reason: Protocol Last Admin: 03/30/18 11:01 Dose: 10 mg Metoclopramide HCl (Reglan) 5 mg IVP ACHS [facility] Last Admin: 03/30/18 06:35 Dose: 5 mg Ondansetron HCl (Zofran Inj) 4 mg IVP Q4H PRN PRN Reason: Nausea/Vomiting Pantoprazole Sodium (Protonix Ec Tab) 40 mg PO 0600 [facility] PRN Reason: Protocol Last Admin: 03/30/18 05:48 Dose: 40 mg Polyethylene Glycol (Miralax) 17 gm PO DAILY [facility]JGAN PRN Reason: Protocol Last Admin: 03/30/18 12:27 Dose: 17 gm Polyethylene Glycol (Miralax) 17 gm PO ONCE ONE Stop: 03/30/18 18:01 Quetiapine Fumarate (Seroquel) 50 mg PO HS [facility] PRN Reason: Protocol Last Admin: 03/29/18 22:11 Dose: 50 mg Simethicone (Mylicon Chew Tab) 80 mg PO [facility] PRN; Protocol PRN Reason: GI distress Last Admin: 03/27/18 22:16 Dose: 80 mg Ursodiol (Actigall) 300 mg PO 0800,1700 [facility] PRN Reason: Protocol Last Admin: 03/30/18 08:30 Dose: 300 mg Zaleplon (Sonata) 5 mg PO PRN PRN Reason: Insomnia - Labs Labs: 03/29/18 06:50 03/30/18 06:30 - Constitutional Appears: Non-toxic, No Acute Distress - Head Exam Head Exam: ATRAUMATIC, NORMOCEPHALIC - Eye Exam Eye Exam: EOMI, PERRL. absent: Conjunctival injection, Nystagmus, Scleral icterus Pupil Exam: NORMAL ACCOMODATION, PERRL. absent: Fixed, Irregular, Unequal - ENT Exam ENT Exam: Mucous Membranes Moist - Neck Exam Neck Exam: Full ROM - Respiratory Exam Respiratory Exam: Clear to Ausculation Bilateral, NORMAL BREATHING PATTERN. absent: Chest Wall Tenderness, Rales, Rhonchi, Respiratory Distress, Stridor - Cardiovascular Exam Cardiovascular Exam: RRR, +S1, +S2. absent: Murmur - GI/Abdominal Exam GI & Abdominal Exam: Soft, Normal Bowel Sounds. absent: Distended, Firm, Guarding, Rigid, Tenderness, Mass, Organomegaly, Rebound - Extremities Exam Extremities Exam: Full ROM, Normal Inspection. absent: Calf Tenderness, Pedal Edema - Back Exam Back Exam: NORMAL INSPECTION - Neurological Exam Neurological Exam: Alert, Awake, Oriented x3 - Psychiatric Exam Psychiatric exam: Normal Affect, Normal Mood - Skin Skin Exam: Dry, Normal Color, Warm Assessment and Plan - Assessment and Plan (Free Text) Assessment: 87 year old female with PMH DM, IBS, HLD, CAD s/p recent RCA stent , admitted for pancreatitis, GI bleed (now resolved). Patient transferred to TCU for rehab and further management: Dyspepsia: - Reglan IV achs - monitor GI bleed: - resolved - EGD 01/2018: shows nonbleeding gastric ulcers, negative for H pylori. - Colonoscopy 01/2018 shows diverticulosis, hemorrhoids - Hgb stable - at baseline - No further melena episodes since admission. Patient having soft, brown BMs. - stopped plavix in hospital (completed 1 month of Plavix after bare metal stent placement) - GI on board. Appreciate recs. Acute pancreatitis: - resolved - heart healthy diet - GI consult appreciated - Abd US shows gallbladder sludge. Pancreas not visualized due to bowel gas. - CT abd pelvis mild inflammatory changes around pancreas -pancreatitis? irregular calcifications /enhancement surrounding R common femoral artery - underlying hematoma/pseudoaneurysm. US eval? multifocal aneurysmal dilatation involving descending aorta Constipation: - miralax bid - simethicone - monitor Hx of HTN: - continue hydralazine, zestril CAD s/p stent: - continue ASA - hold Plavix - Cardiology consulted. f/u recs. Enhancement on CT of Right femoral artery: - CT abd pelvis shows irregular calcifications /enhancement surrounding R common femoral artery - underlying hematoma/pseudoaneurysm. US eval? - arterial doppler negative for aneurysm Diabetes mellitus II - ISS increased to medium - hgbA1C - BG ACHS PPX: protonix, scds Case seen and discussed with Dr Anderson. Cathleen Hanson, PGY2
[2018-03-30] MEDS ORDERED: POLYETHYLENE GLYCOL 3350 17 GM/Dose PACKET PO ONE (18:00)
--- NOTE | 2018-03-31 01:26 | PN ---
DATE: 03/30/2018 SUBJECTIVE: The patient is seen in room 327, bed 2. The patient is sitting up in the bed. The patient is alert, awake, responsive. The patient has some complaints of belching which is less, but still has belching. PHYSICAL EXAMINATION: GENERAL: The patient is seen sitting up in the bed in room 327, bed 2. VITAL SIGNS: T max is 98.1. Pulse Is 90; blood pressure 177/74, 164/83, 159/78; respiration 18, O2 sat 95%. HEENT: Head normocephalic, atraumatic. HEENT examination shows pinkish pale conjunctivae. Anicteric sclerae. No oropharyngeal lesion. NECK: No rigidity. CHEST: Kyphosis. LUNGS: Shows no rales, crackles or wheezing. CARDIOVASCULAR: S1 and S2. Regular rhythm. Questionable soft systolic murmur, left sternal border, right second intercostal space, left second intercostal space. ABDOMEN: Protuberant, soft. Positive bowel sound. GENITALIA: Female. RECTAL: Deferred. EXTREMITIES: Shows positive BRANDAN stockings. No pitting, no calf tenderness, no Homans' sign. MUSCULOSKELETAL: Shows a body mass index of 37. NEUROLOGICAL: Cranial nerves II through XII limited. Gait examination is independent. VASCULAR: Palpable pulses. DIAGNOSTICS: 03/30/2018, sodium 139, potassium 4.4, chloride 102, CO2 of 29, anion gap 12, BUN 12, creatinine 0.9, GFR greater than 60; glucose 211, 215, 201, 170; calcium 9.7, magnesium 1.9, AST 37, lipase is down to 610. IMPRESSION: 1. Questionable gastroesophageal reflux with diabetic gastroparesis with symptoms of belching and burping and reflux. 2. Status post lower gastrointestinal bleeding with melena. 3. Acute pancreatitis with slow resolving lipase. 4. Gallbladder sludge. 5. Hypertension. 6. Tachycardia. 7. Constipation. 8. Obesity with elevated body mass index of 37. 9. Normocytic anemia. 10. Uncontrolled insulin-requiring diabetes mellitus with hyperglycemia and elevated hemoglobin A1c of 9. 11. Deconditioning. 12. Gait dysfunction. 13. History of coronary artery disease, history of coronary angioplasty and stent placement. 14. Dyspepsia. 15. Mood disorder not otherwise specified. 16. Anxiety disorder not otherwise specified. 17. History of mood disorder and anxiety. The patient is seen by Psychiatry yesterday. The patient has been tapered down on Seroquel. 18. Diabetic neuropathy. 19. Atelectasis. 20. Hyperlipidemia. 21. Anorexia. 22. Insomnia. PLAN: At this time, the patient is seen by Psychiatry. The patient's Seroquel is decreased to 50 mg at bedtime with recommendation to taper down over the weekend to stop. The patient has been ordered serial labs. CURRENT CONSULTATION: Gastroenterology, Psychiatry. Diabetic education referral ordered. CURRENT MEDICATIONS: Actigall 300 mg twice a day, clonidine 0.1 mg every 6 p.r.n., Claritin 10 mg daily, Coreg 3.125 twice a day, Cymbalta 60 mg daily, DuoNeb nebulizer every 6 hours, Ecotrin 81 mg daily, Humalog medium dose sliding scale coverage before meals and at bedtime, NPH 10 units with breakfast and NPH 10 units with bedtime, Lipitor 40 mg daily, MiraLax 17 g daily, MiraLax will be increased to twice a day because patient's symptoms of belching and reflux, and patient still has some symptoms of constipation, so MiraLax will be increased to 17 g twice a day from daily, patient is on simethicone 80 mg after meals and at bedtime p.r.n., Periactin 4 mg daily, Protonix 40 mg daily, Reglan 10 mg IV every 6, Seroquel 50 mg at bedtime, Sonata 5 mg at bedtime p.r.n., Zestril 20 mg twice a day, and Zofran 4 IV every 4 p.r.n. Dictated and electronically signed, not read. Jack Anderson MD
[2018-03-31] MEDS: Albuterol-Ipratrop 3 mg / 0.5 (3 ml) UD IH SCH ×4 (02:35→20:57)
[2018-03-31] MEDS: Pantoprazole 40 mg EC Tab PO SCH (05:25)
[2018-03-31] MEDS: Insulin Lispro (humaLOG) MEDIUM Coverage SC SCH ×4 (06:53→21:30)
[2018-03-31] MEDS: Insulin Human NPH 1 UNITS/0.01 ML SC SCH ×2 (06:54→21:31)
[2018-03-31] MEDS: POLYETHYLENE GLYCOL 3350 17 GM/Dose PACKET PO SCH ×2 (09:15→18:14)
--- NOTE | 2018-03-31 13:43 | PN ---
DATE: 03/31/2018 SUBJECTIVE: The patient is seen sitting up in the bed. The patient is having breakfast. A 13 system review was done which was positive for constipation. The patient states that she has not moved her bowels more than 2 days, but the patient did not mention this to me yesterday. REVIEW OF SYSTEMS: A 13-system review was done, pertinent positive and negative dictated above. PHYSICAL EXAMINATION: GENERAL: The patient is seen sitting up in the bed. VITAL SIGNS: T max is 99.3, which was yesterday, heart rate 92, blood pressure 142/77, 164/82, respiration 18, O2 sat is 92%-95%. HEENT: Head: Normocephalic, atraumatic. HEENT examination shows pinkish pale conjunctivae. Anicteric sclerae. No oropharyngeal lesion. No neck rigidity. CHEST: Kyphosis. LUNGS: Shows no rales, crackles or wheezing. CARDIOVASCULAR: S1, S2, regular rhythm. ABDOMEN: Protuberant. Positive bowel sound. GENITALIA: Female. RECTAL: Deferred. EXTREMITIES: Shows BRANDAN stockings of the lower extremity. No pitting edema noted. MUSCULOSKELETAL: Shows a body mass index of 37. NEUROLOGICAL: The patient is alert, awake, oriented x3. Cranial nerves II-XII limited and intact. Gait examination is independent with physical therapy. DIAGNOSTICS None from today. Fingerstick blood sugar 224, 273, 317, 117, 215, 211. IMPRESSION: 1. Constipation. 2. Symptomatic diabetic gastroparesis with symptoms of belching and reflux. 3. Pancreatitis, etiology undetermined, slow resolving. 4. History of mood disorder and anxiety disorder. 5. Morbid obesity with elevated body mass index of 37. 6. Insulin-requiring diabetes mellitus with hyperglycemia, uncontrolled with a hemoglobin A1c of 9. 7. History of coronary artery disease, status post angioplasty. 8. Gallbladder sludge. 9. Tachycardia. 10. Diabetic neuropathy. 11. Atelectasis. 12. Hyperlipidemia. 13. Anorexia. 14. Diabetic gastroparesis. 15. Insomnia. PLAN AT THIS TIME: The patient will be given a stat dose of Dulcolax suppository. The patient will be ordered serial labs. The patient had current consultation with Gastroenterology and Psychiatry. clinical unit educator referral ordered. CURRENT MEDICATIONS: Actigall 300 mg twice a day, clonidine 0.1 mg every 6 hours p.r.n., Claritin 10 mg daily, Colace 100 mg three times a day, Coreg 3.125 mg twice a day, Cymbalta 60 mg daily, Dulcolax suppository x1, DuoNeb nebulizer every 6 hours, Ecotrin 81 mg daily, Humalog medium dose sliding scale coverage, NPH insulin 15 units with breakfast and 15 units at bedtime, Lipitor 40 mg daily, MiraLax 17 g twice a day, simethicone 80 mg after meal and at bedtime p.r.n., Periactin 4 mg daily, Protonix 40 mg daily, Reglan 10 mg IV every 6 hours, Seroquel 50 mg at bedtime, Sonata 5 mg at bedtime p.r.n., Zestril 20 mg twice a day, Zofran 4 mg IV every 4 p.r.n. Heart-healthy diet, out of bed, BRANDAN stocking, physical therapy, ambulation therapy all ordered. Dictated and electronically signed, not read. Jack Anderson MD
[2018-04-01] MEDS: Albuterol-Ipratrop 3 mg / 0.5 (3 ml) UD IH SCH ×4 (01:40→21:28)
[2018-04-01] MEDS: Pantoprazole 40 mg EC Tab PO SCH (06:10)
[2018-04-01 06:56] LABS: ALB/GLOB RATIO 1.1 (1.1-1.8); ALBUMIN 3.1 g/dL (3.0-4.8); ALT/SGPT 34 U/L (7-56); AMYLASE 104 U/L (35-125); AST/SGOT 36 U/L (14-36); BILIRUBIN,DIRECT 0.1 mg/dL (0.0-0.4); BLOOD UREA NITROGEN 15 mg/dL (7-21); CALCIUM 9.4 mg/dL (8.4-10.5); GFR AFRICAN-AMERICAN > 60; GFR NON-AFRICAN AMERICAN 59; LIPASE 1147 U/L (23-300)
[2018-04-01] MEDS: Insulin Lispro (humaLOG) MEDIUM Coverage SC SCH ×4 (07:03→21:34)
[2018-04-01] MEDS: Insulin Human NPH 1 UNITS/0.01 ML SC SCH ×2 (07:04→21:37)
[2018-04-01] MEDS: POLYETHYLENE GLYCOL 3350 17 GM/Dose PACKET PO SCH ×2 (10:11→17:32)
--- NOTE | 2018-04-01 14:30 | PN ---
DATE: 04/01/2018 SUBJECTIVE: The patient is still in TCU in room 327, bed 2. The patient's overnight nurse's notes were reviewed. According to the nurses' notes, the patient has been alert, awake, oriented x3. No adverse events documented overnight. The patient denies any pain or discomfort. Vital signs: T-max is 98.3; pulse 77, 84; blood pressure in the last 24 hours, 142/77, 154/64, 130/68, 171/74; respiration is 18-20, O2 sat is 92% to 93% to 95%. The patient's physical examination is unchanged. DIAGNOSTICS: On 04/01/2018, sodium 138, potassium 4.2, chloride 101, CO2 of 29, anion gap 12, BUN 15, creatinine 0.9, GFR greater than 60. Fingerstick blood sugar 292, 224, 245, 256. Calcium 9.4, magnesium 1.8. LFTs are normal. Amylase is 104. Lipase has gone up to 1147. IMPRESSION AND PLAN: 1. Elevated lipase three times to normal with questionable acute slow resolving or recurrent pancreatitis. 2. Hypertension. 3. Uncontrolled insulin-requiring diabetes mellitus with hyperglycemia and hemoglobin A1c of 9. 4. Tachycardia. 5. Morbid obesity. 6. Normocytic anemia. 7. Hypertension. 8. Atelectasis. 9. Coronary artery disease, status post coronary angioplasty. 10. Hyperlipidemia. 11. Constipation. 12. Diabetic neuropathy. 13. Insulin-requiring diabetes mellitus. 14. Diabetic gastroparesis. 15. Constipation. 16. Gallbladder sludge. 17. Insomnia. 18. History of mood disorder and anxiety disorder, not otherwise specified. Plan at this time, I have requested the reevaluation by Gastroenterology regarding elevated lipase. Repeat serial labs ordered. Current consultation: Gastroenterology, Psychiatry. Referral to diabetic education made. The patient's Periactin and Claritin stopped. CURRENT MEDICATIONS: Actigall 300 mg twice a day; clonidine 0.1 mg every 6 p.r.n.; Colace 100 mg three times a day; Coreg 3.125 twice a day; Cymbalta 60 mg daily; DuoNeb nebulizer every 6 hours [id number]; Ecotrin 81 mg daily; Humalog medium-dose sliding scale coverage; NPH 15 units with breakfast, 15 units at bedtime; Lipitor 40 mg daily; MiraLax 17 g twice a day; simethicone 80 mg p.o. after a meal at bedtime p.r.n.; Protonix 40 mg daily; Reglan 10 mg IV every 6; Seroquel 50 mg p.o. at bedtime, which is supposed to be tapered to discontinue by Psychiatry, we are still waiting for Psychiatry evaluation; Sonata 5 mg at bedtime p.r.n.; Zestril 20 mg twice a day; Zofran 4 mg IV every 4 p.r.n. The patient has been ordered physical therapy, ambulation therapy, gait training, occupational therapy, out of bed, BRANDAN stockings, SCDs ordered. We will await further. We will await further GI evaluation and recommendation for management about this patient for elevation of the lipase. Dictated and electronically signed, not read. Jack Anderson MD
[2018-04-01] MEDS: Simethicone 80 mg Chewtab PO PRN (21:38)
[2018-04-02] MEDS: Albuterol-Ipratrop 3 mg / 0.5 (3 ml) UD IH SCH ×4 (02:04→20:54)
[2018-04-02] MEDS: Pantoprazole 40 mg EC Tab PO SCH (05:53)
[2018-04-02] MEDS: Insulin Lispro (humaLOG) MEDIUM Coverage SC SCH ×4 (06:36→22:46)
[2018-04-02] MEDS: Insulin Human NPH 1 UNITS/0.01 ML SC SCH ×2 (07:25→22:47)
[2018-04-02] MEDS: POLYETHYLENE GLYCOL 3350 17 GM/Dose PACKET PO SCH ×2 (10:05→17:24)
[2018-04-02] MEDS ORDERED: Magnesium Citrate Oral SOL (300 ml) PO ONE (10:16)
--- NOTE | 2018-04-02 11:22 | PN ---
DATE: 04/02/2018 SUBJECTIVE: The patient is seen out of bed to chair in room 327, bed 2. The patient states that she had a bowel movement yesterday or today, but which was not significant and had a small bowel movement. The patient still feels like she has a feeling of fullness and feels that she is unable to evacuate and completely have a good bowel movement. PHYSICAL EXAMINATION: VITAL SIGNS: T-max 98.3; pulse 72-77; blood pressure 130/62, 165/64; respirations 20; O2 sat 96%. HEENT: Head examination normocephalic, atraumatic. HEENT examination shows pinkish pale conjunctivae, anicteric sclerae. No oropharyngeal lesion. No neck rigidity. CHEST: Kyphosis. LUNGS: Shows no rales, crackles or wheezing. CARDIOVASCULAR: S1 and S2. Regular rhythm. Positive systolic murmur, left sternal border, right second intercostal space, left second intercostal space. ABDOMEN: Still protuberant. Positive bowel sound. No guarding. No rigidity. No rebound tenderness noted. GENITALIA: Female. RECTAL: Deferred. EXTREMITIES: Shows no pitting edema, no calf tenderness, no Julián's sign. Positive BRANDAN stockings noted. MUSCULOSKELETAL: Shows a body mass index of 37. DIAGNOSTICS: From 04/01/2018, sodium 138, potassium 4.2, chloride 101, CO2 of 29, anion gap 12, BUN 15, creatinine 0.9, GFR greater than 60. Glucose 245, 224, 292, 185. Calcium 9.4, magnesium 1.8. LFTs are normal. Lipase has gone up to 1147, which is higher in the last 2 weeks. The patient's highest lipase was 719 on 03/23/2018. Yesterday, on 04/01/2018, lipase is 1147. The patient's last GI followup is on 03/30/2018. The patient's last followup is from 03/30/2018. IMPRESSION AND PLAN: 1. Recurrent, relapsing, persistent constipation. 2. Questionable recurrent persistent pancreatitis with elevated lipase. 3. Hypertension. 4. Normocytic anemia. 5. Uncontrolled insulin-requiring diabetes mellitus with hyperglycemia and elevated hemoglobin A1c of 9. 6. Gallbladder sludge. 7. Constipation. 8. Diabetic neuropathy. 9. Atelectasis. 10. History of coronary artery disease and coronary angioplasty. 11. Hyperlipidemia. 12. Gastroesophageal reflux. 13. Diabetic gastroparesis. 14. History of mood disorder and anxiety disorder. 15. Insomnia. Plan at this time, we are still waiting for GI followup regarding elevated lipase. The patient has been ordered repeat labs. Current consultation: Gastroenterology, Psychiatry. Referral: Diabetic Education. Current medications: The patient was given a stat dose of magnesium citrate 150 mL, Actigall 300 twice a day, clonidine 0.1 mg every 6 p.r.n., Colace 100 mg three times a day, Coreg 3.125 twice a day, Cymbalta 60 mg daily, DuoNeb nebulizer every 6 hours [id number], Ecotrin 81 mg daily, Humalog medium-dose sliding scale coverage before meals and at bedtime, NPH insulin 15 units with breakfast and 15 units at bedtime, Lipitor 40 mg daily, MiraLax 17 g twice a day, simethicone 80 mg after meals and at bedtime p.r.n., Protonix 40 mg daily, Reglan 10 mg IV every 6, Seroquel 50 mg at bedtime which is also being recommended by Psychiatry to be tapered down to be discontinued and we are waiting for Psychiatry evaluation, Sonata 5 mg at bedtime p.r.n., Zestril 20 mg twice a day, Zofran 4 mg IV every 4 p.r.n. Heart-healthy diet, fingerstick blood sugar, out of bed, BRANDAN stockings, sequential compression devices, physical therapy, occupational therapy are ordered. At present, the patient will be continued on the above therapeutic intervention with monitoring of the patient's subjective and objective data and clinical condition. We will wait for the recommendation of the GI regarding abnormal elevation of the amylase, lipase and at this time the patient was updated about her condition, diagnoses, treatment plan. The patient acknowledges her understanding. Dictated and electronically signed, not read. Jack Anderson MD
--- NOTE | 2018-04-02 12:34 | PN ---
DATE: 04/02/2018 SUBJECTIVE: The patient is seen in the ICU. She is sitting in a chair, comfortable. She denies any melena, nausea, vomiting, hematemesis, abdominal pain. OBJECTIVE: VITAL SIGNS: Reveal temperature of 98.6, blood pressure of 151/79, heart rate of 85. HEENT: Reveals sclerae to be white. NECK: Supple. CHEST: Lungs are clear. HEART: Reveals regular rate and rhythm. ABDOMEN: Soft, nontender. No mass. EXTREMITIES: Show no edema. LABORATORY DATA: Revealed hemoglobin of 9 on 03/29/2018. Yesterday BUN 15, creatinine 0.9, blood sugar 245. Lipase yesterday was 1140. IMPRESSION: 1. Status post Gl bleed, status post coronary artery stent placement with bare-metal stent several months ago, on aspirin and Plavix. Her hemoglobin is stable. There are no clinical signs of GI bleeding. 2. Diabetes mellitus. 3. Elevated lipase. The patient has had normal transaminases. She is asymptomatic from the elevated lipase. She is known to have biliary sludge. Clinically, the patient does not appear to have pancreatitis. RECOMMENDATIONS: 1. No further workup planned for elevated lipase. 2. Follow serial hematocrits. Chemo Cleveland MD
[2018-04-02 16:41] VITALS: RESP 18
[2018-04-02] MEDS: Simethicone 80 mg Chewtab PO PRN (22:50)
[2018-04-03] MEDS: Albuterol-Ipratrop 3 mg / 0.5 (3 ml) UD IH SCH ×2 (02:28→07:17)
[2018-04-03] MEDS: Pantoprazole 40 mg EC Tab PO SCH (06:13)
[2018-04-03] MEDS: Insulin Lispro (humaLOG) MEDIUM Coverage SC SCH ×4 (08:07→22:05)
[2018-04-03] MEDS: Insulin Human NPH 1 UNITS/0.01 ML SC SCH ×2 (08:09→22:05)
[2018-04-03] MEDS: POLYETHYLENE GLYCOL 3350 17 GM/Dose PACKET PO SCH ×2 (10:40→17:31)
--- NOTE | 2018-04-03 11:43 | PN ---
Copied To: Jack Anderson MD Attending MD: Jack Anderson MD. DATE: 04/03/2018 SUBJECTIVE: The patient was seen in room 327, bed 2. The patient was sitting up in the bed. The patient complained of yesterday about inefficient bowel movement. After the patient received half a bottle of magnesium citrate, the patient had significant amount of large bowel movement and the patient felt much relieved and better after yesterday's dose of magnesium citrate. PHYSICAL EXAMINATION: VITAL SIGNS: T-max 98.8; heart rate 66, 90, 78; blood pressure 124/62, 155/78; respirations 18, O2 sat 94, 95, 96, 94. Intake/output not documented. HEENT: Head examination normocephalic, atraumatic. HEENT examination shows pinkish pale conjunctivae, anicteric sclerae. No oropharyngeal lesion. No neck rigidity. CHEST: Kyphosis. LUNGS: Shows no rales, crackles or wheezing. CARDIOVASCULAR: S1 and S2. Regular rhythm. Questionable systolic murmur, left sternal border, left second intercostal space. ABDOMEN: Protuberant, soft. No hepatosplenomegaly and organomegaly appreciated. GENITALIA: Female. RECTAL: Deferred. EXTREMITIES: Shows positive SCDs. Positive BRANDAN stocks noted. No pitting edema noted. MUSCULOSKELETAL: Shows a body mass index of 37. Motor strength is 5/5 in the upper and lower extremity. Gait examination is not tested. VASCULAR: Palpable pulses of the lower extremity and upper extremity. DIAGNOSTICS: None from today. Fingerstick blood sugar 106, 152, 128, 208, 166, 185. The patient was seen by Gastroenterology, Dr. Cleveland. His recommendations were noted for elevated lipase and the patient is asymptomatic and elevated lipase appears to be probably secondary to gallbladder sludge. IMPRESSION AND PLAN: 1. Deconditioning. 2. Gait dysfunction. 3. Status post gastrointestinal bleeding and melena. 4. Anemia. 5. Asymptomatic elevated lipase, probably secondary to gallbladder and biliary sludge. 6. Tachycardia. 7. Hypertension. 8. Transient hypoxemia. 9. Normocytic anemia. 10. Uncontrolled insulin-requiring diabetes mellitus with hyperglycemia and hemoglobin A1c of 9. 11. History of anxiety disorder and mood disorder, not otherwise specified. 12. Constipation. 13. Diabetic neuropathy. 14. Atherosclerotic heart disease. 15. Hyperlipidemia. 16. Diabetic gastroparesis. 17. Insomnia. 18. Hypertension. 19. Morbid obesity. Plan at this time the patient is scheduled for discharge tomorrow. GI recommendations noted. Current medications: Actigall 300 mg twice a day, Colace 100 mg three times a day, Coreg 3.125 twice a day, Cymbalta 60 mg daily, DuoNeb nebulizer every 6 hours, which will be stopped, Ecotrin 81 mg daily, Humalog medium-dose sliding scale coverage, Insulin NPH 15 units with break fast and 15 units at bedtime, Lipitor 40 mg daily, MiraLax 17 g twice a day, simethicone 80 mg after a meal at bedtime p.r.n., Protonix 40 mg daily, Reglan 10 mg IV every 6, Seroquel which is 50 mg at bedtime is supposed to be discontinued by Psychiatry, Sonata 5 mg at bedtime p.r.n., Zestril 20 mg twice a day, Zofran 4 mg IV every 4 p.r.n. The patient once cleared by Psychiatry and all the other specialty will be considered for discharge after completion of Transitional Care Unit stay. Dictated and electronically signed, not read. Jack Anderson MD
--- NOTE | 2018-04-03 15:01 | PN ---
Copied To: Dorothy Nolasco MD Attending MD: Dorothy Nolasco MD. DATE: 04/03/2018 FOLLOWUP NOTE SUBJECTIVE: The patient was followed up today at the morning time. The patient presented to be not depressed, not anxious. The patient said that her sleep is getting worse after Seroquel was discontinued, but there is no psychosis. There is no agitation. The patient is aware of potential risk of Seroquel such as metabolic syndrome, pancreatitis. The patient already has obesity as well as diabetes. The patient was willing to discontinue Seroquel, but her concern was sleep and insomnia. This underwriter solicitation director suggested to increase the dose of Sonata, the patient is willing to do so and dose will be increased to 10 mg at the nighttime. Besides that, the patient presented very well. The patient denied being depressed. Denied feeling of hopelessness or helplessness. The patient has followup appointment at [facility] with nurse practitioner, Marcello Curiel. This underwriter solicitation director suggested the patient to discuss everything with her nurse practitioner and advised not to resume Seroquel. The patient verbalized understanding. Meanwhile, the patient is doing better in regards of her medical issues. Vital signs are stable. Temperature 98.8, pulse is 66, blood pressure 124/62, respirations 18, oxygen saturation is 95. Medications reviewed. The patient is on aspirin, Lipitor, Coreg, Catapres, dextrose, Colace, Cymbalta 60 mg daily, Humalog, Zestril, Protonix, MiraLax, Actigall, Sonata will be increased to 10 mg at the nighttime. Labs reviewed. Most recent was from 03/29/2018. Glucose better controlled. MENTAL STATUS EXAMINATION: The patient appears to be alert and oriented, pleasant, cooperative, good personal hygiene, good eye contact. Mood described, the only problem I have it is sleep problem. Affect was reactive, mood congruent. Thought process was coherent and goal directed. Thought content, the patient denied visual, auditory or tactile hallucinations. The patient denied thoughts of harming herself or others. The patient does not present to be depressed or anxious or psychotic. Insight and judgment seems to be fair. Impulses are well controlled. 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 PLAN: Seroquel was discontinued. Sonata was increased. The patient is not in any imminent danger to self or others. This underwriter solicitation director will follow up on this patient tomorrow in order to make sure that the patient tolerated the discontinuation of Seroquel well. Thank you very much for letting me participate in the care of your patient. Should you have any questions, give me a call back. Dorothy Nolasco MD
[2018-04-03 16:29] VITALS: TEMP 98.2; O2SAT 95
[2018-04-04] MEDS: Pantoprazole 40 mg EC Tab PO SCH (05:56)
[2018-04-04] MEDS: Insulin Lispro (humaLOG) MEDIUM Coverage SC SCH ×2 (06:57→11:58)
[2018-04-04] MEDS: Insulin Human NPH 1 UNITS/0.01 ML SC SCH (06:58)
[2018-04-04 07:44] VITALS: BP 155/70; PULSE 75
[2018-04-04] MEDS: POLYETHYLENE GLYCOL 3350 17 GM/Dose PACKET PO SCH (09:54)
--- NOTE | 2018-04-04 15:43 | PN ---
Copied To: Dorothy Nolasco MD Attending MD: Dorothy Nolasco MD DATE: 04/04/2018 FOLLOWUP NOTE SUBJECTIVE: This principal technical writer signed off from this case, but Dr. Anderson requested reevaluation because of Seroquel discontinuation and the patient complained of insomnia. The patient was seen and examined today. The patient reported that she feels well. The patient complains of insomnia. The patient reported after the Seroquel was discontinued, she had difficulty to fall asleep and to stay asleep. At the same time, the patient is aware that Seroquel is not a medication for insomnia and Seroquel could contribute to the patient obesity as well as pancreatitis as well as diabetes. The patient agreed with the plan to continue the Sonata as of now. The patient denied being depressed. Denied thoughts of harming herself or others. Denied intents or plan. The patient has future-oriented plans. The patient wants to follow up with outpatient nurse practitioner, Marcello Curiel. The patient was advised to let her nurse practitioner know that Seroquel was discontinued. The patient verbalized understanding. Vital signs reviewed. Pulse is 75, blood pressure 155/70. Medications reviewed. Aspirin, Lipitor, Coreg, Catapres, Colace, Cymbalta 60 mg daily, Humalog insulin, Reglan, Zofran, Protonix, MiraLax, simethicone, Actigall, Sonata 10 mg at the nighttime. Labs reviewed. Chemistry reviewed. MENTAL STATUS EXAMINATION: The patient was calm, cooperative, socially appropriate. Good eye contact. Speech was normal rate, tone, quality and quantity. Mood described, I feel fine, I feel better. Affect was reactive, mood congruent. Thought process coherent and goal directed. Thought content, the patient denied visual, auditory or tactile hallucinations. Denied paranoid ideation. The patient does not present to be psychotic, does not present to be depressed, does not express any thoughts of harming herself or others. Insight and judgment improving. Impulses are well controlled. IMPRESSION: As per history, mood spectrum disorder, rule out mood disorder and anxiety disorder due to general medical condition. PLAN: The patient was educated about risks, benefits and alternatives of the medications. The patient was advised in case if insomnia will be persistent, look for sleep studies. The patient verbalized understanding. At the present moment, the patient denies being depressed. Denied any thoughts of harming herself or others. The patient pose no imminent danger to self or others. The patient has followup appointment with Marcello Curiel at [facility]. We will continue all of the medications as of now. No indications for Seroquel. This principal technical writer will sign off. Should you have any questions, give me a call back. Thank you very much for letting me participate in the care of your patient. Dorothy Nolasco MD
--- NOTE | 2018-04-05 08:50 | DS ---
Copied To: Jack Anderson MD Attending MD: Jack Anderson MD HISTORY OF PRESENT ILLNESS: The patient is seen out of bed to chair. Overnight nurse's notes were reviewed. No adverse events documented. PHYSICAL EXAMINATION: VITAL SIGNS: T max 98.8 to 98.3; heart rate 75, 69; blood pressure 155/70; respiration 18 to 20; O2 sat is 95%. HEENT: Head examination normocephalic, atraumatic. Shows pinkish conjunctivae. Anicteric sclerae. No oropharyngeal lesion. No neck rigidity. CHEST: Kyphosis. LUNGS: Shows no rales, crackles or wheezing. CARDIOVASCULAR: S1, S2, regular rhythm. Questionable soft systolic murmur left sternal border, right second intercostal space, left second intercostal space. ABDOMEN: Protuberant. Positive bowel sounds. GENITALIA: Female. No hepatosplenomegaly noted. No guarding. No rigidity. No rebound tenderness. No costovertebral angle tenderness. NEUROLOGIC: The patient is alert, awake, oriented x3. Cranial nerves II-XII grossly intact. Gait examination is not tested. MUSCULOSKELETAL: Shows a body mass index of 37. DIAGNOSTICS: Fingerstick blood sugar 170, 231, 128, 177, 106, 152. The patient seen by Psychiatry yesterday by Dr. De La Cruz. 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 FINAL IMPRESSION, PLAN AND DISCHARGE DIAGNOSES: 1. Deconditioning. 2. Gait dysfunction. 3. Status post lower gastrointestinal bleeding with melena. 4. Hypertension. 5. Tachycardia. 6. Normocytic anemia. 7. Insulin requiring diabetes mellitus with hyperglycemia and elevated hemoglobin A1c of 9. 8. Elevated lipase, etiology undetermined. 9. Insomnia. 10. 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 11. Constipation. 12. Gallbladder sludge. 13. Tachycardia. 14. Diabetic neuropathy. 15. Atherosclerotic heart disease. 16. Coronary artery disease status post coronary angioplasty. 17. Hyperlipidemia. 18. Gastroesophageal reflux disease. 19. Diabetic gastroparesis. 20. Morbid obesity. 21. Gait dysfunction. PLAN: At this time, the patient's Seroquel is stopped by the Psychiatry and Sonata increased to 10 mg at bedtime. CURRENT MEDICATIONS AND DISCHARGE MEDICATIONS: 1. Aspirin 81 mg daily. 2. Lipitor 40 mg daily. 3. Coreg 3.125 twice a day. 4. Colace 100 mg three times a day. 5. Cymbalta 60 mg daily. 6. Vitamin D2 50,000 units weekly. 7. Hydrochlorothiazide 12.5 mg daily. 8. NovoLog mix 70/30, 30 units with after dinner, NovoLog mix 70/30 25 units after breakfast, NovoLog 70/30 mix 10 units after lunch. 9. Xyzal 5 mg daily. 10. Linzess 72 mcg daily. 11. Zestril 20 mg twice a day or 40 mg daily. 12. Magnesium citrate 150 mL every 2-3 days p.r.n. for constipation. 13. Magnesium oxide 400 mg daily. 14. Protonix 40 mg daily. 15. MiraLax 17 g twice a day. 16. Actigall 300 mg twice a day 500 mg twice a day. 17. Sonata 10 mg at bedtime p.r.n. The patient is cleared for discharge by all subspecialty. The patient will be discharged home. The patient's discharge medications as per updated ambulatory orders and the new scripts which are completed. DISCHARGE FOLLOWUP: With Dr. Anderson within 1 week with all medications DISCHARGE REFERRAL: To [facility]. DISCHARGE DIET: The patient has been ordered to be provided with a copy of the diet by the nursing staff upon discharge. TIME SPENT IN THE ENTIRE DISCHARGE PROCESS: 45 minutes. Dictated and electronically signed, not read. Jack Anderson MD
== END 2018-04-04 14:24 | disposition home health service (06) | DRG 91 ==
LOC: TRCU 18:27
PROVIDERS: ADMIT Internal Medicine; ATTEND Internal Medicine
PROC: F07Z9FZ Gait Training/Functional Ambulation Treatment using Assistive, Adaptive, Supportive or Protective Equipment (ICD-10-PCS; principal; 2018-03-29)
PROC: F07L6YZ Therapeutic Exercise Treatment of Musculoskeletal System - Lower Back / Lower Extremity using Other Equipment (ICD-10-PCS; 2018-03-29)
PROC: F08Z0FZ Bathing/Showering Techniques Treatment using Assistive, Adaptive, Supportive or Protective Equipment (ICD-10-PCS; 2018-03-29)
PROC: F08Z2ZZ Grooming/Personal Hygiene Treatment (ICD-10-PCS; 2018-03-29)
PROC: F08Z1FZ Dressing Techniques Treatment using Assistive, Adaptive, Supportive or Protective Equipment (ICD-10-PCS; 2018-03-29)
PROC: F07Z5ZZ Bed Mobility Treatment (ICD-10-PCS; 2018-04-01)
PROC: F07Z8ZZ Transfer Training Treatment (ICD-10-PCS; 2018-04-01)
DX: R26.9 Unspecified abnormalities of gait and mobility (principal); K85.90 Acute pancreatitis without necrosis or infection, unspecified; J98.11 Atelectasis; I10 Essential (primary) hypertension; E11.40 Type 2 diabetes mellitus with diabetic neuropathy, unspecified; E11.65 Type 2 diabetes mellitus with hyperglycemia; E11.43 Type 2 diabetes mellitus with diabetic autonomic (poly)neuropathy; K31.84 Gastroparesis; F39 Unspecified mood [affective] disorder; F41.9 Anxiety disorder, unspecified; D64.9 Anemia, unspecified; E66.01 Morbid (severe) obesity due to excess calories; E78.5 Hyperlipidemia, unspecified; G47.00 Insomnia, unspecified; I25.10 Atherosclerotic heart disease of native coronary artery without angina pectoris; K25.9 Gastric ulcer, unspecified as acute or chronic, without hemorrhage or perforation; K21.9 Gastro-esophageal reflux disease without esophagitis; K58.9 Irritable bowel syndrome, unspecified; E88.81 Metabolic syndrome and other insulin resistance; K57.90 Diverticulosis of intestine, part unspecified, without perforation or abscess without bleeding; K64.8 Other hemorrhoids; R00.0 Tachycardia, unspecified; Z79.4 Long term (current) use of insulin; Z68.37 Body mass index [BMI] 37.0-37.9, adult; Z95.5 Presence of coronary angioplasty implant and graft; Z87.891 Personal history of nicotine dependence; Z79.82 Long term (current) use of aspirin

== ENCOUNTER 2019-01-06 07:50 | Emergency (ER) | payer MEDICARE ==
[2019-01-06 08:02] VITALS: BMI 33.0
[2019-01-06] MEDS ORDERED: Morphine 2 mg/ml ISec IVP STA (08:15)
--- NOTE | 2019-01-06 08:23 | ED PDOC ---
Arrival/HPI - General Chief Complaint: Male Genitourinary Time Seen by Provider: 01/06/19 08:00 Historian: Patient - History of Present Illness Narrative History of Present Illness (Text): 01/06/19 08:20 88 y.o female with past medical history of DM, hypertension CAD s/p recent RCA stent , who presents to the emergency department complaining of a 2 week history of right sided back pain. Patient states pain gradually become more severe. Patient notes pain increases with bending forward. Patient reports using Tylenol for pain with no significant change. Patient denies nausea, vomiting, urinary changes, or rib cage pain. Time/Duration: > week (2 weeks) Symptom Onset: Gradual Symptom Course: Unchanged Quality: Aching Past Medical History - Provider Review Nursing Documentation Reviewed: Yes - Cardiac Hx Cardiac Disorders: Yes Hx Hypertension: Yes - Pulmonary Hx Respiratory Disorders: No - Neurological Hx Neurological Disorder: No - HEENT Hx HEENT Disorder: No - Renal Hx Renal Disorder: No - Endocrine/Metabolic Hx Diabetes Mellitus Type 2: Yes - Hematological/Oncological Hx Blood Disorders: Yes Hx Blood Transfusions: Yes Hx Blood Transfusion Reaction: No - Integumentary Hx Dermatological Disorder: No - Musculoskeletal/Rheumatological Hx Falls: Yes (past) - Gastrointestinal Hx Gastrointestinal Disorders: Yes (gi bleed) - Genitourinary/Gynecological Hx Reproductive Disorders: Yes (hyst 1967) - Psychiatric Hx Psychophysiologic Disorder: No Hx Emotional Abuse: No Hx Physical Abuse: No Hx Substance Use: No - Surgical History Hx Cardiac Catheterization: Yes (1 stent 02/07/18) Hx Hysterectomy: Yes (1967) - Anesthesia Hx Anesthesia: Yes Hx Anesthesia Reactions: No Hx Malignant Hyperthermia: No - Suicidal Assessment Feels Threatened In Home Enviroment: No Family/Social History - Physician Review Nursing Documentation Reviewed: Yes Family/Social History: Unknown Family HX Smoking Status: Former Smoker Hx Alcohol Use: No Hx Substance Use: No Allergies/Home Meds Allergies/Adverse Reactions: Allergies No Known Allergies Allergy (Verified 01/05/18 10:11) Home Medications: Home Meds Medication Instructions Recorded Confirmed Magnesium Oxide [Magnesium] 1 tab PO DAILY 01/05/18 03/27/18 Insulin Aspart Prot/Insuln Asp 30 units SC ACD 02/02/18 03/27/18 [Novolog Mix 70-30 Vial] Levocetirizine Dihydrochloride 5 mg PO DAILY 02/02/18 03/27/18 Benzonatate 200 mg PO TID 01/06/19 01/06/19 Eszopiclone [Lunesta] 2 mg PO DAILY 01/06/19 01/06/19 Montelukast Sodium [Singulair] 10 mg PO DAILY 01/06/19 01/06/19 metFORMIN [glucOPHAGE] 500 mg PO BID 01/06/19 01/06/19 Review of Systems - Physician Review All systems were reviewed & negative as marked: Yes - Review of Systems Musculoskeletal: Back Pain (Right sided back pain.) Physical Exam - Physical Exam Narrative Physical Exam (Text): 01/06/19 08:22 Gen: VS reviewed, alert, well developed, well nourished, nontoxic, mild distress. ENT: normal pharynx. Eye: EOMI, PERRL. Neck: no JVD, supple, no adenopathy. CV: regular rate, regular rhythm, no rubs, no murmur, no gallops, S1, S2, pulses equal and strong. Pulm: no distress, clear to auscultation, no wheeze, no rhonchi, breath sounds equal, no rales. Abd: soft, nontender, no guarding, no rebound, no rigidity, normal bowel sounds. Ext: no edema. Skin: good color, no rash, no cyanosis. Psych: responds appropriately to questions, normal affect. Neuro: oriented x 3, CN2-12 intact grossly, motor intact, sensation intact. Vital Signs Reviewed: Yes Vital Signs Temp Pulse Resp BP Pulse Ox 01/06/19 08:03 98 F 81 16 202/92 H 97 Temperature: Afebrile Blood Pressure: Hypertensive Pulse: Regular Respiratory Rate: Normal Appearance: Positive for: Well-Appearing, Non-Toxic Pain Distress: Mild Mental Status: Positive for: Alert and Oriented X 3 - Systems Exam Back: Present: Other (No reproductive tenderness. ) Skin: No: Rashes (No underlined skin rash. ) Medical Decision Making ED Course and Treatment: 01/06/19 11:[address] austin, he has been made aware of the abdomnial aneurysm and will arrange for vascular surgeon consult. he would like to see the patient for close follow up tomorrow morning. the patient and gran daughter at bedside are aware of findings and plan and will make the appropriate follow up. the patient's pain has mostly resolved at this time. 01/06/19 12:13 BP elevated but not critically high, stable for dc. urine is equivocal but will empirically tx for uti. - Lab Interpretations Narrative Lab Interpretation (Text): 01/06/19 09:03 01/06/19 08:27 01/06/19 08:27 Lab Results 01/06/19 08:27: Sodium 141, Potassium 4.4, Chloride 105, Carbon Dioxide 29, Anion Gap 11, BUN 21, Creatinine 0.9, Est GFR ( Amer) > 60, Est GFR (Non- Af Amer) 59, Random Glucose 149 H, Calcium 9.8, Total Bilirubin 0.5, AST 36, ALT 38, Alkaline Phosphatase 112, Troponin I Pending, Total Protein 6.9, Albumin 3.8, Globulin 3.2, Albumin/Globulin Ratio 1.2, Lipase 560 H 01/06/19 08:27: PT 11.2, INR 0.99, APTT 30.0 01/06/19 08:27: WBC 6.1, RBC 4.23, Hgb 11.2 L D, Hct 35.8 L, MCV 84.6, MCH 26.5, MCHC 31.3, RDW 16.1 H, Plt Count 266, MPV 10.6, Neut % (Auto) 63.0, Lymph % (Auto) 26.4, [place] % (Auto) 6.5 H, Eos % (Auto) 3.8, Baso % (Auto) 0.3, Lymph # (Auto) 1.6, [place] # (Auto) 0.4, Eos # (Auto) 0.2, Baso # (Auto) 0.02, Absolute Neuts (auto) 3.85 I have reviewed the lab results: Yes - RAD Interpretation Narrative RAD Interpretations (Text): 01/06/19 10:37 CT Angiography disection Protocol Impression: Non aneurysmal thoracic aorta. No evidence of dissection. Infrarenal abdominal benign and/or incidental findings described above. No significant interval change compared to the prior examination. Radiology Orders: 01/06/19 08:14 ANGIOGRAPHY DISECTION PROTOCOL [CT] Stat [employer] Finisher: Radiologist - Medication Orders Current Medication Orders: Hydralazine HCl (Apresoline) 10 mg IVP STAT MOJGAN Morphine Sulfate (Morphine) 2 mg IVP STAT STA Stop: 01/06/19 08:16 - Scribe Statement The provider has reviewed the documentation as recorded by the Scribe Marla Pizarro All medical record entries made by the Scribe were at my direction and personally dictated by me. I have reviewed the chart and agree that the record accurately reflects my personal performance of the history, physical exam, medical decision making, and the department course for this patient. I have also personally directed, reviewed, and agree with the discharge instructions and disposition. Disposition/Present on Arrival - Present on Arrival Any Indicators Present on Arrival: No History of DVT/PE: No History of Uncontrolled Diabetes: No Urinary Catheter: No History of Decub. Ulcer: No History Surgical Site Infection Following: None - Disposition Have Diagnosis and Disposition been Completed?: Yes Diagnosis: UTI (urinary tract infection), Hypertension, Abdominal aneurysm without mention of rupture Disposition: HOME/ ROUTINE Disposition Time: 12:14 Patient Plan: Discharge Patient Problems: Current Active Problems Problem Status Onset Abdominal aneurysm without mention of rupture Acute Hypertension Acute UTI (urinary tract infection) Acute Condition: STABLE Discharge Instructions (ExitCare): Asymptomatic Bacteriuria, Aortic Aneurysm (DC) Additional Instructions: return for any new or worsening symptoms especially abdominal pain, feeling faint, chest pain. follow up with dr. austin tomorrow -11AM. Prescriptions: Nitrofurantoin Monohyd/M-Cryst [Macrobid 100 mg Capsule] 100 mg PO BID 5 Days # 10 capsule
[2019-01-06 08:37] LABS: BASO # 0.02 K/mm3 (0.0-2.0); BASO % 0.3 % (0.0-3.0); EOS # 0.2 (0.0-0.7); EOS % 3.8 % (1.5-5.0); HEMOGLOBIN 11.2 g/dL (12.0-16.0); LYMPH # 1.6 (1.2-3.4); LYMPH % 26.4 % (22.0-35.0); MEAN CELL VOLUME 84.6 fl (80.0-105.0); MEAN CORPUSCULAR HEMOGLOBIN 26.5 pg (25.0-35.0); MEAN CORPUSCULAR HGB CONC 31.3 g/dl (31.0-37.0); MEAN PLATELET VOLUME 10.6 fl (7.0-11.0); MONO # 0.4 (0.1-0.6); MONO % 6.5 % (1.0-6.0); RBC 4.23 10^6/uL (3.5-6.1); RED CELL DISTRIBUTION WIDTH 16.1 % (11.5-14.5); WHITE BLOOD COUNT 6.1 10^3/uL (4.5-11.0)
[2019-01-06 08:47] LABS: INR 0.99; PROTHROMBIN TIME 11.2 SECONDS (9.4-12.5)
[2019-01-06 08:53] LABS: ALB/GLOB RATIO 1.2 (1.1-1.8); ALBUMIN 3.8 g/dL (3.0-4.8); ALT/SGPT 38 U/L (7-56); AST/SGOT 36 U/L (14-36); BLOOD UREA NITROGEN 21 mg/dL (7-21); CALCIUM 9.8 mg/dL (8.4-10.5); GFR NON-AFRICAN AMERICAN 59; LIPASE 560 U/L (23-300)
[2019-01-06 09:04] LABS: TROPONIN I < 0.01 ng/mL
[2019-01-06 09:18] VITALS: RESP 16
[2019-01-06 09:21] LABS: URINE BILIRUBIN NEGATIVE (NEGATIVE); URINE BLOOD NEGATIVE (NEGATIVE); URINE GLUCOSE (UA) NEGATIVE (NEGATIVE); URINE LEUKOCYTE ESTERASE SMALL Leu/uL (NEGATIVE); URINE PROTEIN TRACE mg/dL (<30 mg/dL)
[2019-01-06 09:26] LABS: URINE APPEARANCE CLEAR (CLEAR); URINE COLOR YELLOW (YELLOW)
[2019-01-06 09:36] LABS: URINE AMORPHOUS SEDIMENT FEW /hpf; URINE BACTERIA MANY /hpf; URINE EPITHELIAL CELLS MANY /hpf (0-5)
--- NOTE | 2019-01-06 10:40 | CT ---
PROCEDURE: CT Angiography Chest, Abdomen and Pelvis with and without intravenous contrast HISTORY: Right-sided flank pain. COMPARISON: 03/23/2018 CT abdomen and pelvis. TECHNIQUE: Contiguous axial images of the chest, abdomen and pelvis were obtained in the phase of aortic enhancement. A noncontrast enhanced CT of the chest was also obtained to evaluate for possible intramural thrombus. Coronal and sagittal reformats were generated. IV dose administered: 150 cc Omnipaque 350. Radiation dose: Total exam DLP = 1413.41 mGy-cm. This CT exam was performed using one or more of the following dose reduction techniques: Automated exposure control, adjustment of the mA and/or kV according to patient size, and/or use of iterative reconstruction technique. FINDINGS: CT ANGIOGRAPHY OF THE CHEST WITH & WITHOUT CONTRAST: AORTA (CHEST AND ABDOMEN): The thoracic and abdominal aorta are unremarkable, without aneurysm, dissection or rupture. No intramural thrombus identified in the thoracic aorta on the non-contrast ct of the chest. The celiac axis, superior mesenteric artery, inferior mesenteric artery and the renal arteries are widely patent. The pelvic arteries are unremarkable. LUNGS: Clear. No nodule, mass or consolidation. MEDIASTINUM: Atherosclerotic calcification and mural plaque present. Findings are seen throughout the aorta including arch and distal thoracic aorta. Dilated main pulmonary artery 3.9 cm consistent with pulmonary arterial hypertension. LYMPH NODES: Unremarkable. PLEURA: Unremarkable. No pneumothorax. No pleural fluid. BONES: Unremarkable. OTHER FINDINGS: None. CT ANGIOGRAPHY OF THE ABDOMEN AND PELVIS WITH CONTRAST: LIVER: Unremarkable. No gross lesion or ductal dilatation. GALLBLADDER AND BILE DUCTS: Sludge/debris identified layering in the gallbladder a chronic finding. Similar findings identified on the prior CT from 03/23/2018. PANCREAS: Unremarkable. No gross lesion or ductal dilatation. SPLEEN: Unremarkable. ADRENALS: Unremarkable. No mass. KIDNEYS AND URETERS: Unremarkable. No hydronephrosis. No solid mass. VASCULATURE: Partially calcified infrarenal abdominal aortic aneurysm. Cephalocaudal length 5.5 cm. This extends to the bifurcation. Orthogonal measurements of the aorta 4.2 x 4.4 cm. Luminal orthogonal measurements 2.4 x 2.5 cm. These are stable findings compared to the prior study. No visible dissection. STOMACH AND BOWEL: Constipation without fecal impaction or obstruction. APPENDIX: Normal appendix. PERITONEUM: Unremarkable. No free fluid. No free air. LYMPH NODES: Unremarkable. No enlarged lymph nodes. BLADDER: Unremarkable. REPRODUCTIVE: Prior hysterectomy. BONES: No acute fracture. No significant interval change compared to the prior examination(s). OTHER FINDINGS: None. IMPRESSION: Non aneurysmal thoracic aorta. No evidence of dissection Infrarenal abdominal aortic aneurysm. No evidence of dissection Additional benign and/or incidental findings described above. No significant interval change compared to the prior examination(s).
[2019-01-06 12:14] VITALS: BP 183/82; PULSE 73; O2SAT 97
[2019-01-06 12:29] VITALS: TEMP 98.1
--- NOTE | 2019-01-06 19:30 | CARD ---
APPROVED REPORT Date of service: 01/06/2019 EKG Measurement Heart [id number] <Conclusion> Normal sinus rhythm with sinus arrhythmia Minimal voltage criteria for LVH, may be normal variant NDSTT abnormalities-minor Borderline ECG
== END 2019-01-06 12:23 | disposition home or self-care (01) ==
LOC: ED 07:50
DX: N39.0 Urinary tract infection, site not specified (principal); I10 Essential (primary) hypertension; I71.4 Abdominal aortic aneurysm, without rupture; E11.9 Type 2 diabetes mellitus without complications; I25.10 Atherosclerotic heart disease of native coronary artery without angina pectoris; Z87.891 Personal history of nicotine dependence
CPT/HCPCS: 71275; 74175; 80053; 81001; 83690; 84484; 85025; 85610; 85730; 87086; 93005; 96374; 96375; 99282; J0360; J2270; Q9967